=== PATIENT | female | born 1960 | race Caucasian/White ===

== ENCOUNTER → 2017-11-09 08:25 | Outpatient (CLI) | payer BC, SELFPAY ==
--- NOTE | 2017-11-09 08:27 | HPBI_ITS ---
MAMMOGRAPHY - BILATERAL SCREENING REASON FOR EXAM: Female, 57 years old. Routine annual screening examination. PERTINENT HISTORY: Injury to the right breast. TECHNIQUE: Digital bilateral breast susan (3D mammographic acquisition) in the CC and MLO projections. 2-D mediolateral oblique (MLO) and craniocaudad (CC) views of both breasts were obtained. CAD: Full Field Digital Mammography with Computer Added Detection was performed. COMPARISON: No comparison mammograms available at this time. If any prior films become available, an addendum to this report can be generated. FINDINGS: Breast Composition: There are scattered areas of fibroglandular density. There are no dominant masses or suspicious calcifications. Benign appearing bilateral axillary lymph nodes. No other significant abnormalities are identified. HPBI/SCREENING MAMM (CAD), BILAT IMPRESSION: Negative screening mammogram. Yearly followup mammogram recommended. (A) ASSESSMENT CATEGORY: BIRADS Category 2: Benign. A letter regarding these results will be sent to the patient by the facility within 30 days. Approximately 10% of breast cancers are not detected by mammography. A normal mammogram should not delay biopsy of a clinically suspicious abnormality. [id number] Electronically Signed: Edmond Vale MD at 10:58 EST Tel [phone], Service support ,
== END ==
PROVIDERS: Family Provider Internal Medicine; PCP Internal Medicine; Visit Provider Internal Medicine
DX: Z12.31 Encounter for screening mammogram for malignant neoplasm of breast (principal)
CPT/HCPCS: 77063; 77067

== ENCOUNTER 2018-03-25 19:02 | Emergency (ER) | payer BC, SELFPAY ==
[2018-03-25 19:03] VITALS: BP 167/95; PULSE 88; RESP 16; TEMP 36.7; O2SAT 94; BMI 17.5
[2018-03-25 19:29] LABS: Absolute Lymphocyte Count 1.26 X10^3/ul (0.83-4.51); Absolute Neutrophil Count 3.2 X10^3/uL (2.0-7.7); Basophil# 0.02 X10^3/uL; Basophil% 0.4 % (0-1); Hemoglobin 12.8 g/dl (12.0-15.0); Lymphocyte # 1.26 X10^3/ul (4.0); Lymphocyte % 25.5 % (19-41); Mean Corp Hgb Conc 32.8 g/gl (32-36); Mean Corpuscular Hgb 29.2 pg (27.0-32.0); Mean Platelet Vol. 10.1 fl (6.2-12.0); Monocyte# 0.41 X10^3/uL; Monocyte% 8.3 % (0-10); Neutrophil # 3.16 X10^3/uL (2.7-7.7); Neutrophil % 63.8 % (47-70); Platelet Count 180 K/mm3 (150-450); RBC Distribution Width CV 13.2 % (11.6-14.6); RBC Distribution Width SD 42.7 fl (35.1-43.9); Red Blood Count 4.38 M/mm3 (4.2-5.4)
[2018-03-25 19:30] LABS: POSITIVE COUNT NO; POSITIVE DIFFERENTIAL NO; POSITIVE MORPHOLOGY NO
[2018-03-25] MEDS: 0.9% Normal Saline 1,000 ML 999 ML IV (19:30)
[2018-03-25 19:34] LABS: Bacteria 0 SEEN /hpf (None Seen); Mucous, Urine 0 SEEN /hpf (<or=2+); Red Blood Cells-Urine 0 SEEN /hpf (0-5); Squamous Epithelial Cells - UA 0 SEEN /hpf (5-10); White Blood Cells 0 SEEN /hpf (0-5)
[2018-03-25 19:35] LABS: Color, Urine Yellow (Yellow); Glucose, Dipstick Normal (Normal); Ketone-Dipstick Negative (Negative); Leukocyte Esterase-Dipstick Negative /ul (Negative); Nitrite-Dipstick Negative (Negative); Occult Blood-Urine 25 /ul (Negative); Protein-Dipstick Negative (Negative); Urine Bilirubin Dipstick Negative (Negative); Urine Clarity Clear (Clear); Urine Urobilinogen Normal (Normal); Urine pH 6.5 (5.0 - 8.0)
--- NOTE | 2018-03-25 19:36 | ED.VISSUMM ---
- ER Visit Summary Date of Service: 03/25/18 Chief Complaint: Fatigue History of Present Illness: The patient is a 57 F states that she feels fatigued and weak. She is felt this way for 4 days. She is currently on Macrobid for urinary tract infection. She feels like she has a headache and that her face is on fire. No lateralizing weakness. No slurred speech or facial droop. She did not check her temperature. She has been eating and drinking well. She does have a history of fibromyalgia Physical Examination: Vital signs reviewed. HEENT exam unremarkable. Heart is regular rate and rhythm without murmurs. Lungs are clear to auscultation. Abdomen is soft and nontender. Extremities reveal no edema. Skin exam normal. Neurologic exam normal. Test Results: Labs are normal Emergency Department Course and Treatment: Patient was given IV fluids. Her labs including TSH are normal. The Macrobid might be causing her to feel fatigued. She will discontinue this. She will increase her hydration and follow-up with her PCP Treatment Plan: [] Disposition: Discharge Impression: Fatigue This note was generated with [employer] dictation software. It may contain incorrect words, spelling, and punctuation that were not noted in review of the chart prior to signing ED Disposition - Plan for ED Patient: Chief Complaint: Fatigue Referrals: Suzy Willis DO [Primary Care Provider] -
[2018-03-25 19:43] LABS: Anion Gap 9 (5-15); BUN 11 mg/dL (7-18); BUN/Creat Ratio 11.5 RATIO (10-20); Calcium,Total 9.4 mg/dL (8.5-10.1); Chloride 102 mmol/L (98-107); Creatinine, Serum 0.96 mg/dL (0.55-1.02); EST Glomerular Filtration Rate 64 mL/min (>60); Est Glom Filt Rate - Afr Amer 77 mL/min (>60); Estimated Creatinine Clearance 42.02 ml/min; Glucose 148 mg/dL (74-106); Potassium 3.8 mmol/L (3.5-5.1); Sodium Level 136 mmol/L (136-145)
[2018-03-25 20:21] LABS: Thyroid Stim Hormone (TSH) 1.23 uIU/mL (0.358-3.74)
--- NOTE | 2018-03-25 20:34 | ED.DEP ---
ED Disposition - Plan for ED Patient: Disposition: Home or Assisted Living Chief Complaint: Fatigue Instructions: ED Weakness [facility]O Referrals: Suzy Willis DO [Primary Care Provider] -
[2018-03-25 20:40] VITALS: BP 146/74; PULSE 77; RESP 18; O2SAT 95
== END 2018-03-25 20:42 | disposition home or self-care (01) ==
PROVIDERS: Emergency Provider Emergency Medicine; Family Provider Internal Medicine; PCP Internal Medicine
DX: R53.83 Other fatigue (principal); N39.0 Urinary tract infection, site not specified; Z79.2 Long term (current) use of antibiotics
CPT/HCPCS: 80048; 81001; 84443; 85025; 96360; 99283; J7030; A4216

== ENCOUNTER → 2018-09-28 13:15 | Outpatient (CLI) | payer BC, SELFPAY ==
--- NOTE | 2018-09-28 13:17 | US_ITS ---
STUDY: ULTRASOUND OF THE FEMALE PELVIS - COMPLETE REASON FOR EXAM: Female, 57 years old. Pelvic pain. LMP: Postmenopausal. TECHNIQUE: Transabdominal and transvaginal. TECHNICAL QUALITY: Adequate. COMPARISON: 06/24/2014. FINDINGS: The uterus is anteverted and is in a midline position. The uterus measures 7.0 x 3.9 x 2.7 cm. Nabothian cyst in the uterine cervix. The endometrium measures 2.4 mm in thickness, and is hyperechoic. There is no demonstrated endometrial mass. There is no demonstrated myometrial mass. I.U.D. - The patient does not have an I.U.D. The right ovary is not visualized. The left ovary is visualized. The left ovary measures 1.9 x 1.8 x 1.4 cm. There is no left ovarian cyst or ovarian mass. There is no visualized left adnexal mass or complex lesion. There is normal arterial and normal venous vascularity. There is no fluid in the cul-de-sac. The pre void volume of the bladder was 355 ml. US/Pelvic (Non ) IMPRESSION: 1. Nabothian cysts in the uterine cervix. 2. Normal ultrasound the uterus. 3. Nonvisualization of the right ovary. 4. Normal ultrasound of the left ovary. Electronically Signed: Asaf Brar MD at 14:15 EST , Service support ,
--- NOTE | 2018-09-28 13:43 | US_ITS ---
STUDY: ULTRASOUND OF THE FEMALE PELVIS - COMPLETE REASON FOR EXAM: Female, 57 years old. Pelvic pain. LMP: Postmenopausal. TECHNIQUE: Transabdominal and transvaginal. TECHNICAL QUALITY: Adequate. COMPARISON: 06/24/2014. FINDINGS: The uterus is anteverted and is in a midline position. The uterus measures 7.0 x 3.9 x 2.7 cm. Nabothian cyst in the uterine cervix. The endometrium measures 2.4 mm in thickness, and is hyperechoic. There is no demonstrated endometrial mass. There is no demonstrated myometrial mass. I.U.D. - The patient does not have an I.U.D. The right ovary is not visualized. The left ovary is visualized. The left ovary measures 1.9 x 1.8 x 1.4 cm. There is no left ovarian cyst or ovarian mass. There is no visualized left adnexal mass or complex lesion. There is normal arterial and normal venous vascularity. There is no fluid in the cul-de-sac. The pre void volume of the bladder was 355 ml. US/Transvaginal Non- IMPRESSION: 1. Nabothian cysts in the uterine cervix. 2. Normal ultrasound the uterus. 3. Nonvisualization of the right ovary. 4. Normal ultrasound of the left ovary. Electronically Signed: Asaf Brar MD at 14:15 EST , Service support ,
--- OUTSIDE RECORDS SUMMARY | 2018-12-03 06:12 | XMS RPT_ITS | Continuity of Care Document ---
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 Pulse 70 /min Comments: Pattern: Regular Respiration Rate 18 /min Comments: Pattern: Unlabored O2 SAT 97 % Comments: Room air BP Systolic 138 mm[Hg] Comments: Patient Position: Sitting; Cuff Location: Left Arm; Cuff Size: Large BP Diastolic 82 mm[Hg] Comments: Patient Position: Sitting; Cuff Location: Left Arm; Cuff Size: Large Weight 191.375 lb Height 61 in Body Mass Index Calculated 36.16 kg/m2 Body Surface Area Calculated 1.85 m2 :44 Pulse 67 /min Comments: Pattern: Regular Respiration Rate 18 /min Comments: Pattern: Unlabored O2 SAT 95 % Comments: Room air BP Systolic 124 mm[Hg] Comments: Patient Position: Sitting; Cuff Location: Left Arm; Cuff Size: Large BP Diastolic 74 mm[Hg] Comments: Patient Position: Sitting; Cuff Location: Left Arm; Cuff Size: Large Weight 189.125 lb Height 61 in Body Mass Index Calculated 35.73 kg/m2 Body Surface Area Calculated 1.84 m2 :15 Pulse 55 /min Comments: Pattern: Regular Respiration Rate 18 /min Comments: Pattern: Unlabored O2 SAT 98 % Comments: Room air BP Systolic 124 mm[Hg] Comments: Patient Position: Sitting; Cuff Location: Left Arm; Cuff Size: Large BP Diastolic 82 mm[Hg] Comments: Patient Position: Sitting; Cuff Location: Left Arm; Cuff Size: Large Weight 185.5 lb Height 61 in Body Mass Index Calculated 35.05 kg/m2 Body Surface Area Calculated 1.83 m2 :21 Temperature 97.3 f Comments: Method: Temporal Pulse 68 /min Comments: Pattern: Regular Respiration Rate 20 /min Comments: Pattern: Unlabored O2 SAT 98 % Comments: Room air BP Systolic 144 mm[Hg] Comments: Patient Position: Sitting; Cuff Location: Left Arm; Cuff Size: Large BP Diastolic 90 mm[Hg] Comments: Patient Position: Sitting; Cuff Location: Left Arm; Cuff Size: Large Weight 189 lb Height 61 in Body Mass Index Calculated 35.71 kg/m2 Body Surface Area Calculated 1.84 m2 :20 Pulse 68 /min Comments: Pattern: Regular Respiration Rate 18 /min Comments: Pattern: Unlabored O2 SAT 97 % Comments: Room air BP Systolic 120 mm[Hg] Comments: Patient Position: Sitting; Cuff Location: Left Arm; Cuff Size: Standard BP Diastolic 62 mm[Hg] Comments: Patient Position: Sitting; Cuff Location: Left Arm; Cuff Size: Standard Weight 189 lb Height 61 in Body Mass Index Calculated 35.71 kg/m2 Body Surface Area Calculated 1.84 m2 :18 Temperature 98.2 f Comments: Method: Oral Pulse 78 /min Comments: Pattern: Regular Respiration Rate 18 /min Comments: Pattern: Unlabored O2 SAT 95 % Comments: Room air BP Systolic 138 mm[Hg] Comments: Patient Position: Sitting; Cuff Location: Left Arm; Cuff Size: Standard BP Diastolic 80 mm[Hg] Comments: Patient Position: Sitting; Cuff Location: Left Arm; Cuff Size: Standard Weight 189 lb Height 61 in Body Mass Index Calculated 35.71 kg/m2 Body Surface Area Calculated 1.84 m2 :47 Temperature 97.9 f Comments: Method: Temporal Pulse 71 /min Comments: Pattern: Regular Respiration Rate 16 /min Comments: Pattern: Unlabored O2 SAT 96 % Comments: Room air BP Systolic 130 mm[Hg] Comments: Patient Position: Sitting; Cuff Location: Left Arm; Cuff Size: Standard BP Diastolic 80 mm[Hg] Comments: Patient Position: Sitting; Cuff Location: Left Arm; Cuff Size: Standard Weight 189 lb Height 61 in Body Mass Index Calculated 35.71 kg/m2 Body Surface Area Calculated 1.84 m2 :15 Temperature 97.6 f Comments: Method: Temporal Pulse 74 /min Comments: Pattern: Regular Respiration Rate 18 /min Comments: Pattern: Unlabored O2 SAT 98 % Comments: Room air BP Systolic 136 mm[Hg] Comments: Patient Position: Sitting; Cuff Location: Left Arm; Cuff Size: Large BP Diastolic 86 mm[Hg] Comments: Patient Position: Sitting; Cuff Location: Left Arm; Cuff Size: Large Weight 195 lb Height 61 in Body Mass Index Calculated 36.84 kg/m2 Body Surface Area Calculated 1.87 m2 :04 Temperature 97.6 f Comments: Method: Temporal Pulse 74 /min Comments: Pattern: Regular Respiration Rate 18 /min Comments: Pattern: Unlabored O2 SAT 98 % Comments: Room air BP Systolic 144 mm[Hg] Comments: Patient Position: Sitting; Cuff Location: Left Arm; Cuff Size: Large BP Diastolic 94 mm[Hg] Comments: Patient Position: Sitting; Cuff Location: Left Arm; Cuff Size: Large Weight 194 lb Height 61 in Body Mass Index Calculated 36.66 kg/m2 Body Surface Area Calculated 1.86 m2 :00 Temperature 98.6 f Comments: Method: Tympanic Pulse 77 /min Comments: Pattern: Regular Respiration Rate 16 /min Comments: Pattern: Unlabored O2 SAT 97 % Comments: Room air BP Systolic 140 mm[Hg] Comments: Patient Position: Sitting; Cuff Location: Left Arm; Cuff Size: Standard BP Diastolic 90 mm[Hg] Comments: Patient Position: Sitting; Cuff Location: Left Arm; Cuff Size: Standard Weight 193.125 lb Height 61 in Body Mass Index Calculated 36.49 kg/m2 Body Surface Area Calculated 1.86 m2 :34 Temperature 98.6 f Pulse 81 /min Comments: Pattern: Regular Respiration Rate 18 /min Comments: Pattern: Unlabored O2 SAT 96 % Comments: Room air BP Systolic 128 mm[Hg] Comments: Patient Position: Sitting; Cuff Location: Left Arm; Cuff Size: Standard BP Diastolic 82 mm[Hg] Comments: Patient Position: Sitting; Cuff Location: Left Arm; Cuff Size: Standard Weight 193.25 lb Height 61 in Body Mass Index Calculated 36.51 kg/m2 Body Surface Area Calculated 1.86 m2 :05 Temperature 97.6 f Comments: Method: Temporal Pulse 68 /min Comments: Pattern: Regular Respiration Rate 20 /min Comments: Pattern: Unlabored O2 SAT 98 % Comments: Room air BP Systolic 146 mm[Hg] Comments: Patient Position: Sitting; Cuff Location: Left Arm; Cuff Size: Large BP Diastolic 84 mm[Hg] Comments: Patient Position: Sitting; Cuff Location: Left Arm; Cuff Size: Large Weight 197 lb Height 61 in Body Mass Index Calculated 37.22 kg/m2 Body Surface Area Calculated 1.88 m2 :41 Temperature 98 f Comments: Method: Temporal Pulse 86 /min Comments: Pattern: Regular Respiration Rate 16 /min Comments: Pattern: Unlabored O2 SAT 97 % Comments: Room air BP Systolic 132 mm[Hg] Comments: Patient Position: Sitting; Cuff Location: Left Arm; Cuff Size: Standard BP Diastolic 80 mm[Hg] Comments: Patient Position: Sitting; Cuff Location: Left Arm; Cuff Size: Standard Weight 222 lb Height 61 in Body Mass Index Calculated 41.95 kg/m2 Body Surface Area Calculated 1.97 m2 :14 Temperature 97.6 f Comments: Method: Oral Pulse 74 /min Comments: Pattern: Regular Respiration Rate 20 /min Comments: Pattern: Unlabored BP Systolic 120 mm[Hg] Comments: Patient Position: Sitting; Cuff Location: Left Arm; Cuff Size: Large BP Diastolic 80 mm[Hg] Comments: Patient Position: Sitting; Cuff Location: Left Arm; Cuff Size: Large Weight 220 lb Height 61 in Body Mass Index Calculated 41.57 kg/m2 Body Surface Area Calculated 1.97 m2 Results Date Description Value Details :32 LIPID PANEL (31515) Comments: PATIENT WAS FASTINGPERFORMED BY: [facility] Ieweew1695 [facility] [id number] LDL/HDL Ratio 2.1 {ratio} (Normal) Range: 0.0-3.2 Comments: LDL/HDL Ratio Men Women 1/2 Avg.Risk 1.0 1.5 Av g.Risk 3.6 3.2 2X Avg.Risk 6.2 5.0 3X Avg.Risk 8.0 6.1 LDL Cholesterol Calc 135 mg/dL (Abnormal) Range: 0-99 VLDL Cholesterol Tony 17 mg/dL (Normal) Range: 5-40 HDL Cholesterol 64 mg/dL (Normal) Triglycerides 87 mg/dL (Normal) Range: 0-149 Cholesterol, Total 216 mg/dL (Abnormal) Range: 100-199 47-Ldn-169299:30 Urinalysis, Complete Comments: How was Urine Obtained? [facility] [id number] [place], [address] MUCUS, URINE 0 SEEN {/hpf} (Normal) BACTERIA 0 SEEN {/hpf} (Normal) SQUAM EPI 0 SEEN {/hpf} (Normal) Range: 5-10 RBC-UA 0 SEEN {/hpf} (Normal) Range: 0-5 WBC 0 SEEN {/hpf} (Normal) Range: 0-5 LEUK ESTERASE Negative /ul (Normal) OCCULT BLOOD-UR 25 /ul (Abnormal) NITRITE UR Negative (Normal) UROBILI Normal mg/dL (Normal) PROT DIPSTX Negative mg/dL (Normal) pH UR 6.5 (Normal) Range: 5.0 - 8.0 SP.GR. DIPSTX 1.010 (Normal) Range: 1.002-1.030 KETONE UR Negative mg/dL (Normal) BILIRUBIN URINE Negative mg/dL (Normal) GLUCOSE, UR Normal mg/dL (Normal) CLARITY Clear (Normal) COLOR Yellow (Normal) 74-Cah-841030:21 Basic Metabolic Profile (BMP) Comments: [facility] [address] [place], [place], [id number] GAP 9 (Normal) Range: 5-15 CO2 25.0 mmol/L (Normal) Range: 21.0-32.0 CL 102 mmol/L (Normal) Range: 98-107 K 3.8 mmol/L (Normal) Range: 3.5-5.1 NA 136 mmol/L (Normal) Range: 136-145 CA 9.4 mg/dL (Normal) Range: 8.5-10.1 BUN/CRE 11.5 {RATIO} (Normal) Range: 10-20 Estimated CRCL 42.02 ml/min (Normal) EST GFR - AA 77 mL/min (Normal) Comments: GFR Calc EST GFR 64 mL/min (Normal) Comments: Non- GFR Calc CREAT,SERUM 0.96 mg/dL (Normal) Range: 0.55-1.02 Comments: The validity of the calculated GFR AND GFRAA in patients over70 years has not been determined. Clinical correlation isessential. BUN 11 mg/dL (Normal) Range: 7-18 GLU 148 mg/dL (Abnormal) Range: 74-106 Comments: Fasting Glucose result greater than or equal to 126 mg/dLsuggests DIABETES MELLITUS per A.D.A. criteria.Please note revised GLUCOSE reference range dripbcvxf52/02/2018. 04-Eoc-216031:21 CBC W/Diff, Automated Comments: [facility] [id number] [place], [place], [id number] Absolute Lymph 1.26 {X10_3/ul} (Normal) Range: 0.83-4.51 Absolute Neut 3.2 {X10_3/uL} (Normal) Range: 2.0-7.7 IM GRAN % 0.000 % (Normal) Range: 0.0-0.9 Comments: IG% - Immature Granulocytes (promyelocytes, myelocytes andmetamyelocytes) > 1% indicates that a LEFT SHIFT is Present. BASO% 0.4 % (Normal) Range: 0-1 EO% 2.0 % (Normal) Range: 0-5 MONO% 8.3 % (Normal) Range: 0-10 LY% 25.5 % (Normal) Range: 19-41 NEUT% 63.8 % (Normal) Range: 47-70 MPV 10.1 fL (Normal) Range: 6.2-12.0 PLT 180 K/mm3 (Normal) Range: 150-450 RDW SD 42.7 fL (Normal) Range: 35.1-43.9 RDW CV 13.2 % (Normal) Range: 11.6-14.6 MCHC 32.8 {g/gl} (Normal) Range: 32-36 MCH 29.2 pg (Normal) Range: 27.0-32.0 MCV 89.0 fL (Normal) Range: 81-99 HCT 39.0 % (Normal) Range: 37-47 HGB 12.8 g/dL (Normal) Range: 12.0-15.0 RBC 4.38 {M/mm3} (Normal) Range: 4.2-5.4 WBC 5.0 K/mm3 (Normal) Range: 4.4-11.0 28-Bnc-628814:21 Thyroid Stim Hormone (TSH) Comments: [facility] [address] [place], [place], [id number] TSH 1.23 {uIU/mL} (Normal) Range: 0.358-3.74 54-Wxi-221349:51 URINE SUSAN CULTURE-CHRISTIAN COL Comments: PATIENT NOT FASTINGPERFORMED BY: [facility] Wldzrb8959 [facility] [id number] Information: SRC:UC COUNT (98774) Antimicrobial MIHEAD (Normal) Comments: S = Susceptible; I = Intermediate; R = Resistant P = Positive; N = Negative MICS are expressed in micrograms per mL Antibiotic RSLT#1 RSLT#2 RS Susceptibility LT#3 RSLT#4Amoxicillin/Clavulanic Acid SAmpicillin SCefepime SCeftriaxone SCefuroxime SCiprofloxacin SErtapenem SGentamicin SImipenem SLevofloxacin SMeropenem SNitrofurantoin SPipera cillin/Tazobactam STetracycline STobramycin STrimethoprim/Sulfa S Result 1 Escherichia coli Comments: Greater than 100,000 colony forming units per mL (Abnormal) Urine Final report Culture,Comprehensive (Abnormal) 36-Cxp-718792:40 Urinalysis, Office (70169) UA - LEUKOCYTE ESTERASE Moderate (Normal) UA - NITRITE Negative (Normal) URINE UROBILINGN CHRISTIAN TIMED Normal mg/dL (Normal) UA - PROTEIN Trace mg/dL (Normal) UA - PH 8.5 (Normal) UA - BLOOD non-hemolyzed trace (Normal) UA - SPECIFIC GRAVITY 1.015 (Normal) UA - KETONES Negative mg/dL (Normal) UA - BILIRUBIN Negative (Normal) UA - GLUCOSE Negative (Normal) 07-Qna-982852:36 CALCIFIDIOL (09712) VIT D 25 Comments: PATIENT WAS FASTINGPERFORMED BY: Klir TechnologiesCritical access hospital [id number] Vitamin D, 25-Hydroxy 73.8 ng/mL (Normal) Range: 30.0-100.0 Comments: Vitamin D deficiency has been defined by the [place] of[facility] Centercine and an Endocrine Society practice guideline as alevel of serum 25-OH vitamin D less than 20 ng/mL (1,2).The Endocrine Society went on to further define vitamin Dinsufficiency as a level between 21 and 29 ng/mL (2).1. IOM ([place] of Medicine). 2010. Dietary reference intakes for calcium and D. [place]: The National Academies Press.2. Mouna MF, Isa NC, Lokesh BOJORQUEZ, et al. Evaluation, treatment, and prevention of vitamin D deficiency: an Endocrine Society clinical practice guideline. JCEM. 2010; 96(7):1911-30. 22-Lzu-879703:36 Folate (34999) Comments: PATIENT WAS FASTINGPERFORMED BY: [employer]70 [facility] [id number] Folate (Folic Acid), Serum 8.4 ng/mL (Normal) Comments: A serum folate concentration of less than 3.1 ng/mL isconsidered to represent clinical deficiency. 52-Zlw-021578:36 VITAMIN B-12 (CYANOCOBALAMIN) Comments: PATIENT WAS FASTINGPERFORMED BY: [employer] LabGridstore Hmkrrp6619 García [facility] [place] [id number] (26847) Vitamin B12 386 pg/mL (Normal) Range: 232-1245 28-Mdc-094699:36 TSH (19235) Comments: PATIENT WAS FASTINGPERFORMED BY: [facility] Icanwl2623 Garc[facility] [place] [id number] TSH 2.290 {uIU/mL} (Normal) Range: 0.450-4.500 50-Zhh-991337:36 SED RATE ERYTHROCYTE (70535) Comments: PATIENT WAS FASTINGPERFORMED BY: [employer] [facility] Jqgvif1346 García [facility] [place] [id number] Sedimentation Rate-Westergren 6 mm/h (Normal) Range: 0-40 67-Hbs-897912:36 RHEUMATOID FACTOR-QUANT (29792) Comments: PATIENT WAS FASTINGPERFORMED BY: [employer] [facility] Fubhya4797 García [facility] HospitalD[facility] [place] [id number] RA Latex Turbid. <10.0 {IU/mL} (Normal) Range: 0.0-13.9 23-Yed-975776:36 METABOLIC PANEL, COMPREHENSIVE Comments: PATIENT WAS FASTINGPERFORMED BY: [employer] [facility] Dprvex2279 García [facility] [place] [id number] (67194) ALT (SGPT) 16 [iU]/L (Normal) Range: 0-32 AST (SGOT) 20 [iU]/L (Normal) Range: 0-40 Alkaline Phosphatase, S 45 [iU]/L (Normal) Range: 39-117 Bilirubin, Total 0.4 mg/dL (Normal) Range: 0.0-1.2 A/G Ratio 1.9 (Normal) Range: 1.2-2.2 Globulin, Total 2.3 g/dL (Normal) Range: 1.5-4.5 Albumin, Serum 4.3 g/dL (Normal) Range: 3.5-5.5 Protein, Total, Serum 6.6 g/dL (Normal) Range: 6.0-8.5 Calcium, Serum 9.5 mg/dL (Normal) Range: 8.7-10.2 Carbon Dioxide, Total 23 mmol/L (Normal) Range: 18-29 Chloride, Serum 101 mmol/L (Normal) Range: 96-106 Potassium, Serum 4.6 mmol/L (Normal) Range: 3.5-5.2 Sodium, Serum 143 mmol/L (Normal) Range: 134-144 BUN/Creatinine Ratio 20 (Normal) Range: 9-23 eGFR If Africn Am 99 mL/min/1.73 (Normal) eGFR If NonAfricn Am 86 mL/min/1.73 (Normal) Creatinine, Serum 0.76 mg/dL (Normal) Range: 0.57-1.00 BUN 15 mg/dL (Normal) Range: 6-24 Glucose, Serum 112 mg/dL (Abnormal) Range: 65-99 69-Tqr-352316:36 C-REACTIVE PROTEIN (01106) Comments: PATIENT WAS FASTINGPERFORMED BY: [employer]63Zi Uniform SupplyWhitesburg ARH Hospital [id number] C-Reactive Protein, Quant 4.2 mg/L (Normal) Range: 0.0-4.9 71-Vtv-038404:36 CBC (AUTO) (20090) Comments: PATIENT WAS FASTINGPERFORMED BY: Kl[facility]capital [facility] [place] [id number] Platelets 221 {x10E3/uL} (Normal) Range: 150-379 RDW 12.9 % (Normal) Range: 12.3-15.4 MCHC 33.1 g/dL (Normal) Range: 31.5-35.7 MCH 30.2 pg (Normal) Range: 26.6-33.0 MCV 91 fL (Normal) Range: 79-97 Hematocrit 40.2 % (Normal) Range: 34.0-46.6 Hemoglobin 13.3 g/dL (Normal) Range: 11.1-15.9 RBC 4.40 {x10E6/uL} (Normal) Range: 3.77-5.28 WBC 7.4 {x10E3/uL} (Normal) Range: 3.4-10.8 81-Keo-671027:36 DEMOND (ANTINUCLEAR ANTIBODY) Comments: PATIENT WAS FASTINGPERFORMED BY: Klir TechnologiesCritical access hospital [id number] (67648) DEMOND Direct Negative (Normal) 90-Djm-030492:48 HEPATIC FUNCTION PANEL Comments: PATIENT WAS FASTINGPERFORMED BY: [employer] 1EQ [facility] [id number] (32189) ALT (SGPT) 15 [iU]/L (Normal) Range: 0-32 AST (SGOT) 21 [iU]/L (Normal) Range: 0-40 Alkaline Phosphatase, S 62 [iU]/L (Normal) Range: 39-117 Bilirubin, Direct 0.10 mg/dL (Normal) Range: 0.00-0.40 Bilirubin, Total 0.3 mg/dL (Normal) Range: 0.0-1.2 Albumin, Serum 4.3 g/dL (Normal) Range: 3.5-5.5 Protein, Total, Serum 6.4 g/dL (Normal) Range: 6.0-8.5 :48 LIPID PANEL (35362) Comments: PATIENT WAS FASTINGPERFORMED BY: aTyr PharmaCentraState Healthcare SystemKdbsct4728 [facility] [id number] LDL/HDL Ratio 2.7 {ratio_units} (Normal) Range: 0.0-3.2 Comments: LDL/HDL Ratio Men Women 1/2 Avg.Risk 1.0 1.5 Av g.Risk 3.6 3.2 2X Avg.Risk 6.2 5.0 3X Avg.Risk 8.0 6.1 LDL Cholesterol Calc 160 mg/dL (Abnormal) Range: 0-99 VLDL Cholesterol Tony 31 mg/dL (Normal) Range: 5-40 HDL Cholesterol 60 mg/dL (Normal) Triglycerides 154 mg/dL (Abnormal) Range: 0-149 Cholesterol, Total 251 mg/dL (Abnormal) Range: 100-199 18-Lob-281582:48 TSH (08109) Comments: PATIENT WAS FASTINGPERFORMED BY: [employer] Rekfbj4734 [facility] [id number] TSH 2.610 {uIU/mL} (Normal) Range: 0.450-4.500 84-Iaw-512258:48 T4, FREE (THYROXINE) (91336) Comments: PATIENT WAS FASTINGPERFORMED BY: [employer] Yigemi8972 [facility] [id number] T4,Free(Direct) 1.20 ng/dL (Normal) Range: 0.82-1.77 :48 T3, FREE (TRIDOTHYRONINE) (75103) Comments: PATIENT WAS FASTINGPERFORMED BY: LabCoCentraState Healthcare SystemMqzjcz3589 [facility] [id number] Triiodothyronine,Free,Serum 2.9 pg/mL (Normal) Range: 2.0-4.4 :05 HgA1C , Office (67962) HgA1C , Office 5.7 % (Normal) Range: 4.6 - 7.1 :05 Blood Glucose , Office (71335) Blood Glucose , Office 108 (Normal) :53 CBC With Differential/Platelet Comments: PATIENT WAS FASTINGPERFORMED BY: [facility]Henry [facility]6370 [facility] [id number] BY: [address] [id number] Immature Grans (Abs) 0.0 {x10E3/uL} (Normal) Range: 0.0-0.1 Immature Granulocytes 0 % (Normal) Baso (Absolute) 0.0 {x10E3/uL} (Normal) Range: 0.0-0.2 Eos (Absolute) 0.3 {x10E3/uL} (Normal) Range: 0.0-0.4 Monocytes(Absolute) 0.5 {x10E3/uL} (Normal) Range: 0.1-0.9 Lymphs (Absolute) 1.9 {x10E3/uL} (Normal) Range: 0.7-3.1 Neutrophils (Absolute) 3.1 {x10E3/uL} (Normal) Range: 1.4-7.0 Basos 1 % (Normal) Eos 4 % (Normal) Monocytes 9 % (Normal) Lymphs 33 % (Normal) Neutrophils 53 % (Normal) Platelets 221 {x10E3/uL} (Normal) Range: 150-379 RDW 13.5 % (Normal) Range: 12.3-15.4 MCHC 33.8 g/dL (Normal) Range: 31.5-35.7 MCH 30.3 pg (Normal) Range: 26.6-33.0 MCV 90 fL (Normal) Range: 79-97 Hematocrit 41.1 % (Normal) Range: 34.0-46.6 Hemoglobin 13.9 g/dL (Normal) Range: 11.1-15.9 RBC 4.59 {x10E6/uL} (Normal) Range: 3.77-5.28 WBC 5.8 {x10E3/uL} (Normal) Range: 3.4-10.8 37-Qek-89662:53 Comp. Metabolic Panel Comments: PATIENT WAS FASTINGPERFORMED BY: CB [facility] Rdgbuv4294 [facility] [id number] BY: BN [facility] Fvmrtkftgx7426 [facility] [id number] (14) ALT (SGPT) 17 [iU]/L (Normal) Range: 0-32 AST (SGOT) 21 [iU]/L (Normal) Range: 0-40 Alkaline Phosphatase, S 62 [iU]/L (Normal) Range: 39-117 Bilirubin, Total 0.3 mg/dL (Normal) Range: 0.0-1.2 A/G Ratio 1.9 (Normal) Range: 1.2-2.2 Globulin, Total 2.2 g/dL (Normal) Range: 1.5-4.5 Albumin, Serum 4.2 g/dL (Normal) Range: 3.5-5.5 Protein, Total, Serum 6.4 g/dL (Normal) Range: 6.0-8.5 Calcium, Serum 9.6 mg/dL (Normal) Range: 8.7-10.2 Carbon Dioxide, Total 23 mmol/L (Normal) Range: 18-29 Chloride, Serum 100 mmol/L (Normal) Range: 96-106 Potassium, Serum 4.2 mmol/L (Normal) Range: 3.5-5.2 Sodium, Serum 141 mmol/L (Normal) Range: 134-144 BUN/Creatinine Ratio 13 (Normal) Range: 9-23 eGFR If Africn Am 102 mL/min/1.73 (Normal) eGFR If NonAfricn Am 88 mL/min/1.73 (Normal) Creatinine, Serum 0.75 mg/dL (Normal) Range: 0.57-1.00 BUN 10 mg/dL (Normal) Range: 6-24 Glucose, Serum 97 mg/dL (Normal) Range: 65-99 :53 Lipid Panel With LDL/HDL Comments: PATIENT WAS FASTINGPERFORMED BY: aTyr PharmaLarry V[place] [id number] [facility] [id number] BY: [address] [id number]; will review on 04/15 Ratio LDL/HDL Ratio 3.1 {ratio_units} (Normal) Range: 0.0-3.2 Comments: LDL/HDL Ratio Men Women 1/2 Avg.Risk 1.0 1.5 Av g.Risk 3.6 3.2 2X Avg.Risk 6.2 5.0 3X Avg.Risk 8.0 6.1 LDL Cholesterol Calc 158 mg/dL (Abnormal) Range: 0-99 VLDL Cholesterol Tony 45 mg/dL (Abnormal) Range: 5-40 HDL Cholesterol 51 mg/dL (Normal) Triglycerides 225 mg/dL (Abnormal) Range: 0-149 Cholesterol, Total 254 mg/dL (Abnormal) Range: 100-199 :53 Microalb/Creat Ratio, Randm Comments: PATIENT WAS FASTINGPERFORMED BY: [employer] [id number] BY: [address] [id number] Ur Microalb/Creat Ratio <5.1 {mg/g_creat} (Normal) Range: 0.0-30.0 Microalbumin, Urine <3.0 ug/mL (Normal) Creatinine, Urine 58.9 mg/dL (Normal) :53 Microscopic Examination Comments: PATIENT WAS FASTINGPERFORMED BY: [facility] HospitalGridstore[address] [id number] BY: [address] [id number] Bacteria None seen (Normal) Mucus Threads Present (Normal) Epithelial Cells (non 0-10 {/hpf} Range: 0 - 10 renal) (Normal) RBC None seen {/hpf} Range: 0 - 2 (Normal) WBC 0-5 {/hpf} (Normal) Range: 0 - 5 Reverse T3, Serum 27.8 ng/dL Comments: PATIENT WAS FASTINGPERFORMED BY: [place] [id number] [facility] [id number] BY: [address] [id number] :53 (Abnormal) Range: 9.2-24.1 Thyroid Peroxidase 79 {IU/mL} Comments: PATIENT WAS FASTINGPERFORMED BY: [email or web address] [facility] Hospital6370 [facility] [id number] BY: [address] [id number] :53 (TPO) Ab (Abnormal) Range: 0-34 :53 Thyroxine (T4) Free, Comments: PATIENT WAS FASTINGPERFORMED BY: [email or web address] [facility] Hospital6370 [facility] [id number] BY: [address] [id number] Direct, S T4,Free(Direct) 1.18 ng/dL Range: 0.82-1.77 (Normal) 08-Apr-2017 Triiodothyronine,Free,Seru 2.7 pg/mL (Normal) Comments: PATIENT WAS FASTINGPERFORMED BY: [email or web address] [facility] Hospital6370 [facility] [id number] BY: [address] [id number] 9:53 m Range: 2.0-4.4 08-Apr-2017 TSH 2.850 {uIU/mL} Comments: PATIENT WAS FASTINGPERFORMED BY: [email or web address] [facility] Hospital6370 [facility] [id number] BY: [address] [id number] 9:53 (Normal) Range: 0.450-4.500 60-Kqw-15694:53 Urinalysis, Complete Comments: PATIENT WAS FASTINGPERFORMED BY: [facility]6370 [facility] [id number] BY: [address] [id number] Microscopic Examination See below: (Normal) Comments: Microscopic was indicated and was performed. Nitrite, Urine Negative (Normal) Urobilinogen,Semi-Qn 0.2 mg/dL (Normal) Range: 0.2-1.0 Bilirubin Negative (Normal) Occult Blood Negative (Normal) Ketones Negative (Normal) Glucose Negative (Normal) Protein Negative (Normal) WBC Esterase Trace (Abnormal) Appearance Clear (Normal) Urine-Color Yellow (Normal) pH 7.0 (Normal) Range: 5.0-7.5 Specific [place] 1.008 (Normal) Range: 1.005-1.030 Vitamin D, 25-Hydroxy 60.2 ng/mL (Normal) Comments: PATIENT WAS FASTINGPERFORMED BY: [place] [id number] [facility] [id number] BY: [address] [id number] :53 Range: 30.0-100.0 Comments: Vitamin D deficiency has been defined by the [place] [employer] and an Endocrine Society practice guideline as alevel of serum 25-OH vitamin D less than 20 ng/mL (1,2).The Endocrine Society went on to further define vitamin Dinsufficiency as a level between 21 and 29 ng/mL (2).1. IOM ([place] [employer]). 2010. Dietary reference intakes for calcium and D. [place]: The National Academies Press.2. Mouna MF, Isa FRYE, Lokesh BOJORQUEZ, et al. Evaluation, treatment, and prevention of vitamin D deficiency: an Endocrine Society clinical practice guideline. JCEM. 2010; 96(7):1911-30. :54 Basic Metabolic Profile (BMP) Comments: [facility] [id number] [place], [address] GAP 7 (Normal) Range: 5-15 CO2 28.0 mmol/L (Normal) Range: 21.0-32.0 CL 104 mmol/L (Normal) Range: 98-107 K 4.0 mmol/L (Normal) Range: 3.5-5.1 NA 139 mmol/L (Normal) Range: 136-145 CA 9.1 mg/dL (Normal) Range: 8.5-10.1 BUN/CRE 19.8 {RATIO} (Normal) Range: 10-20 Estimated CRCL 60.89 ml/min (Normal) EST GFR - AA 101 mL/min (Normal) Comments: GFR Calc EST GFR 83 mL/min (Normal) Comments: Non- GFR Calc CREAT,SERUM 0.76 mg/dL (Normal) Range: 0.55-1.02 Comments: The validity of the calculated GFR AND GFRAA in patients over70 years has not been determined. Clinical correlation isessential. BUN 15 mg/dL (Normal) Range: 7-18 GLU 121 mg/dL (Abnormal) Range: 70-110 Comments: Fasting Glucose result from 110 to <126 mg/dLsuggests IMPAIRED HOMEOSTASIS per A.D.A. criteria. [id number]:54 CBC W/Diff, Automated Comments: [facility] [id number] [place], [place], [id number] Absolute Lymph 1.36 {X10_3/ul} (Normal) Range: 0.83-4.51 Absolute Neut 4.8 {X10_3/uL} (Normal) Range: 2.0-7.7 IM GRAN % 0.400 % (Normal) Range: 0.0-0.9 Comments: IG% - Immature Granulocytes (promyelocytes, myelocytes andmetamyelocytes) > 1% indicates that a LEFT SHIFT is Present. BASO% 0.3 % (Normal) Range: 0-1 EO% 2.5 % (Normal) Range: 0-5 MONO% 6.9 % (Normal) Range: 0-10 LY% 20.0 % (Normal) Range: 19-41 NEUT% 69.9 % (Normal) Range: 47-70 MPV 10.4 fL (Normal) Range: 6.2-12.0 PLT 194 K/mm3 (Normal) Range: 150-450 RDW SD 45.0 fL (Abnormal) Range: 35.1-43.9 RDW CV 13.1 % (Normal) Range: 11.6-14.6 MCHC 32.3 {g/gl} (Normal) Range: 32-36 MCH 30.5 pg (Normal) Range: 27.0-32.0 MCV 94.6 fL (Normal) Range: 81-99 HCT 40.6 % (Normal) Range: 37-47 HGB 13.1 g/dL (Normal) Range: 12.0-15.0 RBC 4.29 {M/mm3} (Normal) Range: 4.2-5.4 WBC 6.8 K/mm3 (Normal) Range: 4.4-11.0 14-Ilh-180179:36 Microscopic Examination Comments: PATIENT WAS FASTINGPERFORMED BY: [employer] 1EQ [facility] [id number] Bacteria None seen (Normal) Mucus Threads Present (Normal) Epithelial Cells (non renal) 0-10 {/hpf} (Normal) Range: 0 - 10 RBC 0-2 {/hpf} (Normal) Range: 0 - 2 WBC 0-5 {/hpf} (Normal) Range: 0 - 5 :36 Anti-TPO Antibody (10776) Comments: PATIENT WAS FASTINGPERFORMED BY: [employer] 1[employer] [facility] [id number] Thyroid Peroxidase (TPO) Ab 51 {IU/mL} (Abnormal) Range: 0-34 :36 TSH (25639) Comments: PATIENT WAS FASTINGPERFORMED BY: [employer] Kvibbq5904 [facility] [id number] TSH 2.190 {uIU/mL} (Normal) Range: 0.450-4.500 :36 T4, FREE (THYROXINE) (69126) Comments: PATIENT WAS FASTINGPERFORMED BY: [employer] 1EQ [facility] [id number] T4,Free(Direct) 0.97 ng/dL (Normal) Range: 0.82-1.77 :36 T3, FREE (TRIDOTHYRONINE) (74264) Comments: PATIENT WAS FASTINGPERFORMED BY: [employer] [id number] [facility] [id number] Triiodothyronine,Free,Serum 2.7 pg/mL (Normal) Range: 2.0-4.4 :36 CALCIFIDIOL (78930) VIT D 25 Comments: PATIENT WAS FASTINGPERFORMED BY: [employer] Tikvmc2336 [facility] [id number] Vitamin D, 25-Hydroxy 25.1 ng/mL (Abnormal) Range: 30.0-100.0 Comments: Vitamin D deficiency has been defined by the [place] [employer] and an Endocrine Society practice guideline as alevel of serum 25-OH vitamin D less than 20 ng/mL (1,2).The Endocrine Society went on to further define vitamin Dinsufficiency as a level between 21 and 29 ng/mL (2).1. IOM ([place] [employer]). 2010. Dietary reference intakes for calcium and D. [place]: The National Academies Press.2. Mouna MF, Isa NC, Lokesh BOJORQUEZ, et al. Evaluation, treatment, and prevention of vitamin D deficiency: an Endocrine Society clinical practice guideline. JCEM. 2010; 96(7):1911-30. :36 URINALYSIS, W/ MICRO (99479) Comments: PATIENT WAS FASTINGPERFORMED BY: [employer] 1EQ [facility] [id number] Microscopic Examination See below: (Normal) Comments: Microscopic was indicated and was performed. Nitrite, Urine Negative (Normal) Urobilinogen,Semi-Qn 0.2 mg/dL (Normal) Range: 0.2-1.0 Bilirubin Negative (Normal) Occult Blood Trace (Abnormal) Ketones Negative (Normal) Glucose Negative (Normal) Protein Negative (Normal) WBC Esterase 1+ (Abnormal) Appearance Clear (Normal) Urine-Color Yellow (Normal) pH 6.5 (Normal) Range: 5.0-7.5 Specific [place] 1.012 (Normal) Range: 1.005-1.030 :36 MICROALBUMIN: CREATININE RATIO Comments: PATIENT WAS FASTINGPERFORMED BY: aTyr PharmaCentraState Healthcare SystemGvwsvt8135 [facility] [id number] (33690) AND (37486) Microalb/Creat Ratio <8.1 {mg/g_creat} (Normal) Range: 0.0-30.0 Microalbumin, Urine <3.0 ug/mL (Normal) Creatinine, Urine 37.1 mg/dL (Normal) :36 METABOLIC PANEL, COMPREHENSIVE Comments: PATIENT WAS FASTINGPERFORMED BY: [employer]70 [facility] [id number] (44278) ALT (SGPT) 17 [iU]/L (Normal) Range: 0-32 AST (SGOT) 19 [iU]/L (Normal) Range: 0-40 Alkaline Phosphatase, S 60 [iU]/L (Normal) Range: 39-117 Bilirubin, Total 0.4 mg/dL (Normal) Range: 0.0-1.2 A/G Ratio 2.3 (Abnormal) Range: 1.2-2.2 Globulin, Total 1.9 g/dL (Normal) Range: 1.5-4.5 Albumin, Serum 4.3 g/dL (Normal) Range: 3.5-5.5 Protein, Total, Serum 6.2 g/dL (Normal) Range: 6.0-8.5 Calcium, Serum 9.4 mg/dL (Normal) Range: 8.7-10.2 Carbon Dioxide, Total 23 mmol/L (Normal) Range: 18-29 Chloride, Serum 102 mmol/L (Normal) Range: 96-106 Potassium, Serum 4.6 mmol/L (Normal) Range: 3.5-5.2 Sodium, Serum 142 mmol/L (Normal) Range: 134-144 BUN/Creatinine Ratio 22 (Normal) Range: 9-23 eGFR If Africn Am 114 mL/min/1.73 (Normal) eGFR If NonAfricn Am 99 mL/min/1.73 (Normal) Creatinine, Serum 0.64 mg/dL (Normal) Range: 0.57-1.00 BUN 14 mg/dL (Normal) Range: 6-24 Glucose, Serum 88 mg/dL (Normal) Range: 65-99 :36 LIPID PANEL (78904) Comments: PATIENT WAS FASTINGPERFORMED BY: [employer]air6370 [facility] [id number] LDL/HDL Ratio 2.1 {ratio_units} (Normal) Range: 0.0-3.2 Comments: LDL/HDL Ratio Men Women 1/2 Avg.Risk 1.0 1.5 Av g.Risk 3.6 3.2 2X Avg.Risk 6.2 5.0 3X Avg.Risk 8.0 6.1 LDL Cholesterol Calc 118 mg/dL (Abnormal) Range: 0-99 VLDL Cholesterol Tony 30 mg/dL (Normal) Range: 5-40 HDL Cholesterol 55 mg/dL (Normal) Triglycerides 150 mg/dL (Abnormal) Range: 0-149 Cholesterol, Total 203 mg/dL (Abnormal) Range: 100-199 04-Nzu-129075:36 CBC W/AUTO DIFF WBC (01762) Comments: PATIENT WAS FASTINGPERFORMED BY: LabCoCentraState Healthcare SystemVewobe4691 [facility] [id number] Immature Grans (Abs) 0.0 {x10E3/uL} (Normal) Range: 0.0-0.1 Immature Granulocytes 0 % (Normal) Baso (Absolute) 0.0 {x10E3/uL} (Normal) Range: 0.0-0.2 Eos (Absolute) 0.2 {x10E3/uL} (Normal) Range: 0.0-0.4 Monocytes(Absolute) 0.5 {x10E3/uL} (Normal) Range: 0.1-0.9 Lymphs (Absolute) 2.1 {x10E3/uL} (Normal) Range: 0.7-3.1 Neutrophils (Absolute) 2.9 {x10E3/uL} (Normal) Range: 1.4-7.0 Basos 1 % (Normal) Eos 4 % (Normal) Monocytes 9 % (Normal) Lymphs 37 % (Normal) Neutrophils 49 % (Normal) Platelets 185 {x10E3/uL} (Normal) Range: 150-379 RDW 13.8 % (Normal) Range: 12.3-15.4 MCHC 33.4 g/dL (Normal) Range: 31.5-35.7 MCH 30.8 pg (Normal) Range: 26.6-33.0 MCV 92 fL (Normal) Range: 79-97 Hematocrit 38.0 % (Normal) Range: 34.0-46.6 Hemoglobin 12.7 g/dL (Normal) Range: 11.1-15.9 RBC 4.13 {x10E6/uL} (Normal) Range: 3.77-5.28 WBC 5.8 {x10E3/uL} (Normal) Range: 3.4-10.8 :16 HgA1C , Office (74870) HgA1C , Office 5.6 % (Normal) Range: 4.6 - 7.1 :16 Blood Glucose , Office (46700) Blood Glucose , Office 94 (Normal) :14 IGP, Aptima HPV, Comments: Source.............Cervical;EndocervicalNo. of containers..01 CYTYC Thin Prep VialPATIENT NOT FASTINGPERFORMED BY: =G [facility] Oxayakwnad658 [facility] W [id number] BY: WB L rfx 16/18,45 [facility] Ccqlpqxrez808 [facility] [place] [id number] HPV Aptima Negative (Normal) Comments: This test detects fourteen high-risk HPV types (16/18/31/33/35/39/45/51/52/56/58/59/66/68) without differentiation. Note: PAPSMR (Normal) Comments: The Pap smear is a screening test designed to aid in the detection ofpremalignant and malignant conditions of the uterine cervix. It is not adiagnostic procedure and should not be used as the sole mean s of detectingcervical cancer. Both false-positive and false-negative reports do occur. .This liquid based ThinPrep(R) pap test w as screened with theuse of an image guided system. See Note . (Normal) DIAGNOSIS: SPRCS (Normal) Comments: NEGATIVE FOR INTRAEPITHELIAL LESION AND MALIGNANCY.CELLULAR CHANGES ASSOCIATED WITH INFLAMMATION ARE PRESENT.THIS SPECIMEN WAS RESCREENED PART OF OUR BODY WIRER PROGRAM.Satisfactory for evaluati on. No endocervical component is identified.Z01.411Runaldo Espinal CytotechnologistDianne Waite Copy Preparer (ASCP) :14 Thin prep Pap Comments: Source.............Cervical;EndocervicalNo. of containers..01 CYTYC Thin Prep VialPATIENT NOT FASTINGPERFORMED BY: =G [facility] Zrrljukarv694 [facility] [id number] BY: WB Felipe (85739) (no STD [facility] Vrsskkfrbc527 [facility]andiInd[facility] [id number] Information: [id number] testing) Age Gdln ACOG Testing 30-65 (Normal) 4-Ruu-765072:29 CALCIFIDIOL (53294) VIT D 25 Comments: PATIENT WAS FASTINGPERFORMED BY: [facility] Pgissh8783 García RoadDublin [place] [id number] Vitamin D, 25-Hydroxy 18.4 ng/mL (Abnormal) Range: 30.0-100.0 Comments: Vitamin D deficiency has been defined by the [place] [employer] and an Endocrine Society practice guideline as alevel of serum 25-OH vitamin D less than 20 ng/mL (1,2).The Endocrine Society went on to further define vitamin Dinsufficiency as a level between 21 and 29 ng/mL (2).1. IOM ([place] [employer] [place]). 2010. Dietary reference intakes for calcium and D. [place]: The National Academies Press.2. Mouna MF, Isa NC, Lokesh BOJORQUEZ, et al. Evaluation, treatment, and prevention of vitamin D deficiency: an Endocrine Society clinical practice guideline. JCEM. 2010; 96(7):1911-30. [id number]-643381:29 TSH (46186) Comments: PATIENT WAS FASTINGPERFORMED BY: [facility] Hodsgt7219 [address] M[facility] Memorial HospitalDublin [place] [id number] TSH 3.080 {uIU/mL} (Normal) Range: 0.450-4.500 7-Cfv-555155:29 MICROALBUMIN: CREATININE RATIO Comments: PATIENT WAS FASTINGPERFORMED BY: [facility] Couvkr7087 García RoadDublin [place] [id number] (12041) AND (56085) Microalb/Creat Ratio <6.3 {mg/g_creat} (Normal) Range: 0.0-30.0 Microalbumin, Urine <3.0 ug/mL (Normal) Range: 0.0-17.0 Creatinine, Urine 47.5 mg/dL (Normal) Range: 15.0-278.0 :29 METABOLIC PANEL, Comments: PATIENT WAS FASTINGPERFORMED BY: aTyr PharmaGallup Indian Medical CenterEnufab5689 [facility] [id number] Information: [id number] COMPREHENSIVE (17140) ALT (SGPT) 23 [iU]/L (Normal) Range: 0-32 AST (SGOT) 23 [iU]/L (Normal) Range: 0-40 Alkaline Phosphatase, S 68 [iU]/L (Normal) Range: 39-117 Bilirubin, Total 0.3 mg/dL (Normal) Range: 0.0-1.2 A/G Ratio 2.2 (Normal) Range: 1.1-2.5 Globulin, Total 2.0 g/dL (Normal) Range: 1.5-4.5 Albumin, Serum 4.4 g/dL (Normal) Range: 3.5-5.5 Protein, Total, Serum 6.4 g/dL (Normal) Range: 6.0-8.5 Calcium, Serum 9.6 mg/dL (Normal) Range: 8.7-10.2 Carbon Dioxide, Total 24 mmol/L (Normal) Range: 18-29 Chloride, Serum 100 mmol/L (Normal) Range: 97-108 Potassium, Serum 4.3 mmol/L (Normal) Range: 3.5-5.2 Sodium, Serum 140 mmol/L (Normal) Range: 134-144 BUN/Creatinine Ratio 18 (Normal) Range: 9-23 eGFR If Africn Am 99 mL/min/1.73 (Normal) eGFR If NonAfricn Am 86 mL/min/1.73 (Normal) Creatinine, Serum 0.77 mg/dL (Normal) Range: 0.57-1.00 BUN 14 mg/dL (Normal) Range: 6-24 Glucose, Serum 95 mg/dL (Normal) Range: 65-99 :29 LIPID PANEL (09251) Comments: PATIENT WAS FASTINGPERFORMED BY: aTyr PharmaGallup Indian Medical CenterIsxhvx8180 [facility] [id number] LDL/HDL Ratio 2.7 {ratio_units} (Normal) Range: 0.0-3.2 Comments: LDL/HDL Ratio Men Women 1/2 Avg.Risk 1.0 1.5 Av g.Risk 3.6 3.2 2X Avg.Risk 6.2 5.0 3X Avg.Risk 8.0 6.1 LDL Cholesterol Calc 139 mg/dL (Abnormal) Range: 0-99 VLDL Cholesterol Tony 48 mg/dL (Abnormal) Range: 5-40 HDL Cholesterol 52 mg/dL (Normal) Comments: According to ATP-III Guidelines, HDL-C >59 mg/dL is considered anegative risk factor for CHD. Triglycerides 238 mg/dL (Abnormal) Range: 0-149 Cholesterol, Total 239 mg/dL (Abnormal) Range: 100-199 :09 HgA1C , Office (40721) HgA1C , Office 5.8 % (Normal) Range: 4.6 - 7.1 :16 D-Dimer Quantitative (DVT/PE) Comments: [facility] Zadhkrcssa2219 [facility]. [place], [place], [id number] D-DIMER QUANT 0.39 {FEU/ug/m} (Normal) Range: 0.27-0.49 Comments: NORMAL D-Dimer level (<0.50) indicates no DVT or PE. :09 Blood Glucose , Office (42096) Blood Glucose , Office 101 (Normal) Comments: done in office non fasting :09 HgA1C , Office (60872) HgA1C , Office 5.9 % (Normal) Range: 4.6 - 7.1 :10 HgA1C , Office (51761) HgA1C , Office 6.6 % (Normal) Range: 4.6 - 7.1 :51 METABOLIC PANEL, COMPREHENSIVE Comments: PATIENT WAS FASTINGPERFORMED BY: [facility] Kapwny9312 [facility] [id number] (02211) ALT (SGPT) 17 [iU]/L (Normal) Range: 0-32 AST (SGOT) 20 [iU]/L (Normal) Range: 0-40 Alkaline Phosphatase, S 62 [iU]/L (Normal) Range: 39-117 Bilirubin, Total 0.3 mg/dL (Normal) Range: 0.0-1.2 A/G Ratio 2.1 (Normal) Range: 1.1-2.5 Globulin, Total 2.0 g/dL (Normal) Range: 1.5-4.5 Albumin, Serum 4.1 g/dL (Normal) Range: 3.5-5.5 Protein, Total, Serum 6.1 g/dL (Normal) Range: 6.0-8.5 Calcium, Serum 9.7 mg/dL (Normal) Range: 8.7-10.2 Carbon Dioxide, Total 25 mmol/L (Normal) Range: 18-29 Chloride, Serum 101 mmol/L (Normal) Range: 97-108 Potassium, Serum 4.8 mmol/L (Normal) Range: 3.5-5.2 Sodium, Serum 142 mmol/L (Normal) Range: 134-144 BUN/Creatinine Ratio 13 (Normal) Range: 9-23 eGFR If Africn Am 99 mL/min/1.73 (Normal) eGFR If NonAfricn Am 86 mL/min/1.73 (Normal) Creatinine, Serum 0.78 mg/dL (Normal) Range: 0.57-1.00 BUN 10 mg/dL (Normal) Range: 6-24 Glucose, Serum 133 mg/dL (Abnormal) Range: 65-99 00-Bzz-55530:51 LIPID PANEL (85405) Comments: PATIENT WAS FASTINGPERFORMED BY: LabCoCentraState Healthcare SystemVtlljj6589 [facility] [id number] LDL/HDL Ratio 3.6 {ratio_units} (Abnormal) Range: 0.0-3.2 Comments: LDL/HDL Ratio Men Women 1/2 Avg.Risk 1.0 1.5 Av g.Risk 3.6 3.2 2X Avg.Risk 6.2 5.0 3X Avg.Risk 8.0 6.1 LDL Cholesterol Calc 138 mg/dL (Abnormal) Range: 0-99 VLDL Cholesterol Tony 41 mg/dL (Abnormal) Range: 5-40 HDL Cholesterol 38 mg/dL (Abnormal) Comments: According to ATP-III Guidelines, HDL-C >59 mg/dL is considered anegative risk factor for CHD. Triglycerides 204 mg/dL (Abnormal) Range: 0-149 Cholesterol, Total 217 mg/dL (Abnormal) Range: 100-199 67-Qap-33389:51 CBC W/AUTO DIFF WBC Comments: PATIENT WAS FASTINGPERFORMED BY: LabCoCentraState Healthcare SystemAahupp4255 [facility] [id number] Information: [id number] (35705) Immature Grans (Abs) 0.0 {x10E3/uL} (Normal) Range: 0.0-0.1 Immature Granulocytes 0 % (Normal) Baso (Absolute) 0.0 {x10E3/uL} (Normal) Range: 0.0-0.2 Eos (Absolute) 0.3 {x10E3/uL} (Normal) Range: 0.0-0.4 Monocytes(Absolute) 0.5 {x10E3/uL} (Normal) Range: 0.1-0.9 Lymphs (Absolute) 1.9 {x10E3/uL} (Normal) Range: 0.7-3.1 Neutrophils (Absolute) 2.5 {x10E3/uL} (Normal) Range: 1.4-7.0 Basos 1 % (Normal) Eos 5 % (Normal) Monocytes 10 % (Normal) Lymphs 36 % (Normal) Neutrophils 48 % (Normal) Platelets 243 {x10E3/uL} (Normal) Range: 150-379 RDW 13.8 % (Normal) Range: 12.3-15.4 MCHC 34.3 g/dL (Normal) Range: 31.5-35.7 MCH 30.6 pg (Normal) Range: 26.6-33.0 MCV 89 fL (Normal) Range: 79-97 Hematocrit 38.5 % (Normal) Range: 34.0-46.6 Hemoglobin 13.2 g/dL (Normal) Range: 11.1-15.9 RBC 4.31 {x10E6/uL} (Normal) Range: 3.77-5.28 WBC 5.3 {x10E3/uL} (Normal) Range: 3.4-10.8 :51 Anti-TPO Antibody (35497) Comments: PATIENT WAS FASTINGPERFORMED BY: LabCoCentraState Healthcare SystemGsrhos3917 [facility] [id number] Thyroid Peroxidase (TPO) Ab 16 {IU/mL} (Normal) Range: 0-34 :51 TSH (76903) Comments: PATIENT WAS FASTINGPERFORMED BY: [facility]6370 [facility] [id number] TSH 1.930 {uIU/mL} (Normal) Range: 0.450-4.500 :51 T4, FREE (THYROXINE) (47985) Comments: PATIENT WAS FASTINGPERFORMED BY: [facility]Henry [facility]6370 [facility] [id number] T4,Free(Direct) 0.89 ng/dL (Normal) Range: 0.82-1.77 :51 T3, FREE (TRIDOTHYRONINE) (87010) Comments: PATIENT WAS FASTINGPERFORMED BY: [facility]6370 [facility] [id number] Triiodothyronine,Free,Serum 3.2 pg/mL (Normal) Range: 2.0-4.4 4-Emj-487187:23 Urinalysis, Office (72459) UA - LEUKOCYTE ESTERASE Negative (Normal) UA - NITRITE Negative (Normal) URINE UROBILINGN CHRISTIAN TIMED 2 mg/dL (Normal) UA - PROTEIN Negative mg/dL (Normal) UA - PH 7.5 (Normal) UA - BLOOD Negative (Normal) UA - SPECIFIC GRAVITY 1.015 (Normal) UA - KETONES Negative mg/dL (Normal) UA - BILIRUBIN Negative (Normal) UA - GLUCOSE Negative (Normal) Plan of Care Name Dates Details Instructions Encounter for gynecological examination with abnormal finding : Safe sex Indication: Encounter for gynecological examination with abnormal finding Encounter for gynecological examination with abnormal finding : HPV Vaccine Information 2005 Indication: Encounter for gynecological examination with abnormal finding Encounter for gynecological examination with abnormal finding : Self breast exam Indication: Encounter for gynecological examination with abnormal finding Encounter for gynecological examination with abnormal finding : *Well Female Maintenance (SMC) Indication: Encounter for gynecological examination with abnormal finding Encounter for gynecological examination with abnormal finding : Pap/Pelvic/Bimanual/Rectal/Breast Exam was done. Indication: Encounter for gynecological examination with abnormal finding Former smoker : Eprescribed prescriptions (G8553) Indication: Former smoker BMI 39.0-39.9,adult : Follow up in 2 weeks for Gen med and Pap Indication: BMI 39.0-39.9,adult Former smoker : Eprescribed prescriptions (G8553) Indication: Former smoker BMI 36.0-36.9,adult : Follow up if no improvement or if symptoms worsen Indication: BMI 36.0-36.9,adult BMI 36.0-36.9,adult : Eprescribed prescriptions (G8553) Indication: BMI 36.0-36.9,adult Former smoker : Follow up if no improvement or if symptoms worsen Indication: Former smoker Chest congestion : Eprescribed prescriptions (G8553) Indication: Chest congestion Orgasmic headache : Reviewed Diagnostic Tests Indication: Orgasmic headache Other fatigue : Reviewed Lab Indication: Other fatigue Other fatigue : Follow up - Make appt after diagnostic tests Indication: Other fatigue Other fatigue : *fatigue education Indication: Other fatigue Chronic obstructive asthma with acute exacerbation (Renamed from Chronic obstructive asthma with exacerbation) : Follow up in 2 weeks Indication: Chronic obstructive asthma with acute exacerbation (Renamed from Chronic obstructive asthma with exacerbation) Non-smoker : Eprescribed prescriptions (G8553) Indication: Non-smoker Chronic obstructive asthma with acute exacerbation (Renamed from Chronic obstructive asthma with exacerbation) : Follow up if no improvement or if symptoms worsen Indication: Chronic obstructive asthma with acute exacerbation (Renamed from Chronic obstructive asthma with exacerbation) Cough : Eprescribed prescriptions (G8553) Indication: Cough Coronary artery disease, non-occlusive : Continue Current Prescription(s) Indication: Coronary artery disease, non-occlusive 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 Hyperlipemia : Reviewed Lab Indication: Hyperlipemia Diabetes mellitus type II, controlled, with no complications : Follow up in 3 months Indication: Diabetes mellitus type II, controlled, with no complications Benign hypertensive heart disease without congestive heart failure : Diet, Exercise, and Wt loss Indication: Benign hypertensive heart disease without congestive heart failure Benign hypertensive heart disease without congestive heart failure : HTN/CAD Red Flags Indication: Benign hypertensive heart disease without congestive heart failure Hyperlipemia : Cholesterol mgmt Indication: Hyperlipemia Diabetes mellitus type II, controlled, with no complications : Diabetes and Exercise: Preventing Low Blood Sugar: blood sugar Indication: Diabetes mellitus type II, controlled, with no complications Hypercholesteremia (Renamed from Hypercholesterolemia) : Cholesterol mgmt Indication: Hypercholesteremia (Renamed from Hypercholesterolemia) 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 Diabetes mellitus type II, controlled, with no complications : Follow up in 3 months Indication: Diabetes mellitus type II, controlled, with no complications Hyperlipemia : Cholesterol mgmt Indication: Hyperlipemia Diabetes mellitus type II, controlled, with no complications : Eprescribed prescriptions (G8553) Indication: Diabetes mellitus type II, controlled, with no complications Chronic obstructive asthma with acute exacerbation (Renamed from Chronic obstructive asthma with exacerbation) : Follow up if no improvement or if symptoms worsen Indication: Chronic obstructive asthma with acute exacerbation (Renamed from Chronic obstructive asthma with exacerbation) Dizziness : *Vertigo Education Indication: Dizziness Nicotine dependence, uncomplicated, unspecified nicotine product type : Eprescribed prescriptions (G8553) Indication: Nicotine dependence, uncomplicated, unspecified nicotine product type Chronic obstructive asthma with acute exacerbation (Renamed from Chronic obstructive asthma with exacerbation) : *Antibiotic Usage Education - Female Indication: Chronic obstructive asthma with acute exacerbation (Renamed from Chronic obstructive asthma with exacerbation) Chronic obstructive asthma with acute exacerbation (Renamed from Chronic obstructive asthma with exacerbation) : Solu Medrol Injection/ Education Indication: Chronic obstructive asthma with acute exacerbation (Renamed from Chronic obstructive asthma with exacerbation) Encounter for gynecological examination with abnormal finding : Self breast exam Indication: Encounter for gynecological examination with abnormal finding Encounter for gynecological examination with abnormal finding : *Well Female Maintenance (SMC) Indication: Encounter for gynecological examination with abnormal finding Encounter for gynecological examination with abnormal finding : Pap/Pelvic/Bimanual/Rectal/Breast Exam was done. Indication: Encounter for gynecological examination with abnormal finding Encounter for gynecological examination with abnormal finding : Eprescribed prescriptions (G8553) Indication: Encounter for gynecological examination with abnormal finding Hyperlipemia : High Cholesterol (Hypercholesterolemia) *: diets Indication: Hyperlipemia Wheeze : Follow up in 1 week- dr kilpatrick to do nancy plus gen med Indication: Wheeze Wheeze : Eprescribed prescriptions (G8553) Indication: Wheeze Wheeze : Follow up if no improvement or if symptoms worsen Indication: Wheeze BRONCHITIS, NOT SPECIFIED ACUTE OR CHRONIC (490.) : *Antibiotic Usage Education - Female Indication: BRONCHITIS, NOT SPECIFIED ACUTE OR CHRONIC (490.) BRONCHITIS, NOT SPECIFIED ACUTE OR CHRONIC (490.) : *URI Treatment Indication: BRONCHITIS, NOT SPECIFIED ACUTE OR CHRONIC (490.) BRONCHITIS, NOT SPECIFIED ACUTE OR CHRONIC (490.) : *URI Symptoms Indication: BRONCHITIS, NOT SPECIFIED ACUTE OR CHRONIC (490.) BRONCHITIS, NOT SPECIFIED ACUTE OR CHRONIC (490.) : *Antibiotic Usage Education - Female Indication: BRONCHITIS, NOT SPECIFIED ACUTE OR CHRONIC (490.) Diabetes mellitus type II, controlled, with no complications : Eprescribed prescriptions (G8553) Indication: Diabetes mellitus type II, controlled, with no complications Morbid Obesity (Renamed from Extreme obesity) : Contrave Patient Instructions Indication: Morbid Obesity (Renamed from Extreme obesity) Diabetes mellitus type II, controlled, with no complications : Eprescribed prescriptions (G8553) Indication: Diabetes mellitus type II, controlled, with no complications Planned Observations HPV automatic ([id number])Indication: Screening for HPV (human papillomavirus) (Renamed from Encounter for screening for human papillomavirus (HPV)) On: 19-Qhx-[id number]:09 Request Thin prep Pap ([id number]) (no STD testing)Indication: Encounter for gynecological examination with abnormal finding On: 01-Qey-738034:24 Request URINALYSIS ([id number])Indication: Hematuria On: :29 Request REVERSE TRIDOTHYRONINE ([id number])Indication: Argelia's disease On: :24 Request TSH ([id number])Indication: Argelia's disease On: 87-Moc-173315:23 Request T4, FREE (THYROXINE) ([id number])Indication: Argelia's disease On: :23 Request T3, FREE (TRIDOTHYRONINE) ([id number])Indication: Argelia's disease On: 88-Yva-225828:23 Request D-Dimer ([id number])Indication: Shortness of breath at rest On: 73-Vgc-322585:03 Request TSH ([id number])Indication: H/O Argelia thyroiditis On: :31 Request URINALYSIS, W/ MICRO ([id number])Indication: Diabetes mellitus type II, controlled, with no complications On: :31 Request METABOLIC PANEL, COMPREHENSIVE ([id number])Indication: Diabetes mellitus type II, controlled, with no complications On: : Request LIPID PANEL ([id number])Indication: Diabetes mellitus type II, controlled, with no complications On: : Request CBC with auto diff ([id number])Indication: Diabetes mellitus type II, controlled, with no complications On: 2-Xyv-345470:31 Request Planned Procedures ULTRASOUND OF [place] On: 22-Sep-2018 Intent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 effects (contrave gave flu like sx. ). Patient sleeps 8 hours per night. Impact of disease: emotional impact-mild. Nutrition: balanced diet and supplemental vitamins. The medical issues t he patient is following up for include asthma, blood sugar issues, cardiac issues, fibromyalgia, high blood pressure, high cholesterol and other (tobacco use, obesity ).Encounter Diagnosis: Diabetes type II,controlled no comp (250.00), Hypertension,benign(401.1), DISORDER, TOBACCO USE (305.1), H/O Argelia thyroiditis, Asthma (493.11), MVP (mitral valve prolapse), Hypersomnia, Hyperlipemia, Morbid Obesity (Renamed from Extreme obesity), Fibromyalgia (Renamed from Diffuse myofascial pain syndrome), Obesity,unspecified (278.00), Hair thinning [facility] Phone Encounter On: 10-Sep-2014 7:45 [facility] End: 10-Sep-2014 7:46 Refill Request On: 16-Jul-2014 9:41 Encounter Diagnosis: Diabetes type II,controlled no comp (250.00) End: 16-Jul-2014 9:42 [facility] Office Visit On: 02-Jul-2014 15:39 Encounter Reason: Follow up tests - Date: (06.24.14).Encounter Diagnosis: Abdominal Pain,LLQ (789.04), MVP (mitral valve prolapse), Morbid Obesity (Renamed from Extreme obesity), Fibromyalgia (Renamed from Diffuse myofascial pain syndrome), End: 02-Jul-2014 16:32 Hypersomnia, Diabetes type II,controlled no comp (250.00), Hyperlipemia [facility] Office Visit On: 17-Jun-2014 11:14 Encounter Reason: Transition into care - The patient is transitioning into care from another physician and a summary of care was reviewed ., [ADDITIONAL REASON] new patient female physical - Last seen between 3-6 months ago. General health: End: 19-Jun-2014 20:55 feels well with minor complaints, has good energy level and is sleeping well. The patient's appetite is normal. Nutrition: normal/adequate. Exercises 0 days per week. Sleeps on average 8 hours per night . Elimination problems include urinary frequency and diarrhea. Safety measures include appropriate use of safety belts and home smoke detectors. Current emotional problems include anxiety and depression . screening, colonoscopy (never had one), screening, mammography (has order, is due now ), screening, Pap smear (January 2014 [place], [place] ) and screening, visual acuity (wears glasses January 2014 ). Encounter Diagnosis: Fibromyalgia (Renamed from Diffuse myofascial pain syndrome), Asthma (493.11), Hypertension,benign(401.1), Dysuria, H/O Argelia thyroiditis, Morbid Obesity (Renamed from Extreme obesity), WWV V73.21, Abdominal Pain,LLQ (789.04), DISORDER, TOBACCO USE (305.1), NEED FOR PROPHYLACTIC VACCINATION AND INOCULATION AGAINST INFLUENZA (V04.81) [facility] Payers [employer]/Aubrey Hoover; a guarantor
--- OUTSIDE RECORDS SUMMARY | 2018-12-03 06:13 | XMS RPT_ITS | Continuity of Care Document ---
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 Range: 0 - 2 WBC 0-5 {/hpf} (Normal) Range: 0 - 5 :36 Anti-TPO Antibody (36609) Comments: PATIENT WAS FASTINGPERFORMED BY: Companion [employer] Bud[employer] Biologist [facility] [id number] Thyroid Peroxidase (TPO) Ab 51 {IU/mL} (Abnormal) Range: 0-34 :36 TSH (31057) Comments: PATIENT WAS FASTINGPERFORMED BY: Companion Canine Cbanzc5912 [facility] [id number] TSH 2.190 {uIU/mL} (Normal) Range: 0.450-4.500 :36 T4, FREE (THYROXINE) (24049) Comments: PATIENT WAS FASTINGPERFORMED BY: Companion Canine Budding Biologist [facility] [id number] T4,Free(Direct) 0.97 ng/dL (Normal) Range: 0.82-1.77 :36 T3, FREE (TRIDOTHYRONINE) (61040) Comments: PATIENT WAS FASTINGPERFORMED BY: Companion Canine Apbmrj6290 [facility] [id number] Triiodothyronine,Free,Serum 2.7 pg/mL (Normal) Range: 2.0-4.4 :36 CALCIFIDIOL (46910) VIT D 25 Comments: PATIENT WAS FASTINGPERFORMED BY: Companion Canine Mslkrt6742 [facility] [id number] Vitamin D, 25-Hydroxy 25.1 ng/mL (Abnormal) Range: 30.0-100.0 Comments: Vitamin D deficiency has been defined by the [place] of[place]icine and an Endocrine Society practice guideline as alevel of serum 25-OH vitamin D less than 20 ng/mL (1,2).The Endocrine Society went on to further define vitamin Dinsufficiency as a level between 21 and 29 ng/mL (2).1. IOM ([place] of [employer]). 2010. Dietary reference intakes for calcium and D. [place]: The National Academies Press.2. Mouna MF, Isa [place], Lokesh BOJORQUEZ, et al. Evaluation, treatment, and prevention of vitamin D deficiency: an Endocrine Society clinical practice guideline. JCEM. 2010; 96(7):1911-30. :36 URINALYSIS, W/ MICRO (23989) Comments: PATIENT WAS FASTINGPERFORMED BY: Companion Canine Budding Biologist [facility] [id number] Microscopic Examination See below: (Normal) Comments: Microscopic was indicated and was performed. Nitrite, Urine Negative (Normal) Urobilinogen,Semi-Qn 0.2 mg/dL (Normal) Range: 0.2-1.0 Bilirubin Negative (Normal) Occult Blood Trace (Abnormal) Ketones Negative (Normal) Glucose Negative (Normal) Protein Negative (Normal) WBC Esterase 1+ (Abnormal) Appearance Clear (Normal) Urine-Color Yellow (Normal) pH 6.5 (Normal) Range: 5.0-7.5 Specific [place] 1.012 (Normal) Range: 1.005-1.030 :36 MICROALBUMIN: CREATININE RATIO Comments: PATIENT WAS FASTINGPERFORMED BY: Companion CanineThe Memorial Hospital of Salem CountyZpplwy7414 [facility] [id number] ([id number]) AND (45935) Microalb/Creat Ratio <8.1 {mg/g_creat} (Normal) Range: 0.0-30.0 Microalbumin, Urine <3.0 ug/mL (Normal) Creatinine, Urine 37.1 mg/dL (Normal) :36 METABOLIC PANEL, COMPREHENSIVE Comments: PATIENT WAS FASTINGPERFORMED BY: [employer]70 [facility] [id number] (85712) ALT (SGPT) 17 [iU]/L (Normal) Range: 0-32 [...] mg/dL (Normal) Range: 65-99 :36 LIPID PANEL (80775) Comments: PATIENT WAS FASTINGPERFORMED BY: KAI Square6370 GarcíaZappyLabNovant Health Rehabilitation Hospital [id number] LDL/HDL Ratio 2.1 {ratio_units} (Normal) Range: 0.0-3.2 Comments: LDL/HDL Ratio Men Women 1/2 Avg.Risk 1.0 1.5 Av g.Risk 3.6 3.2 2X Avg.Risk 6.2 5.0 3X Avg.Risk 8.0 6.1 LDL Cholesterol Calc 118 mg/dL (Abnormal) Range: 0-99 VLDL Cholesterol Tony 30 mg/dL (Normal) Range: 5-40 HDL Cholesterol 55 mg/dL (Normal) Triglycerides 150 mg/dL (Abnormal) Range: 0-149 Cholesterol, Total 203 mg/dL (Abnormal) Range: 100-199 25-Xqa-758506:36 CBC W/AUTO DIFF WBC (96484) Comments: PATIENT WAS FASTINGPERFORMED BY: LabCoThe Memorial Hospital of Salem CountyJkbqtx5891 [facility] [id number] Immature Grans (Abs) 0.0 {x10E3/uL} (Normal) Range: [...] (Normal) Range: 3.4-10.8 :16 HgA1C , Office (91884) HgA1C , Office 5.6 % (Normal) Range: 4.6 - 7.1 :16 Blood Glucose , Office (16515) Blood Glucose , Office 94 (Normal) :14 IGP, Aptima HPV, Comments: Source.............Cervical;EndocervicalNo. of containers..01 CYTYC Thin Prep VialPATIENT NOT FASTINGPERFORMED BY: =G [facility] Azeogwusvs946 [facility] W [id number] BY: WB L rfx 16/18,45 [facility] Tvwhihqgog952 [facility] [place] [id number] HPV Aptima Negative (Normal) Comments: This test [...] PRESENT.THIS SPECIMEN WAS RESCREENED PART OF OUR CRYSTAL [employer]AT GRINDER PROGRAM.Satisfactory for evaluati on. No endocervical component is identified.Z01.411Runaldo Espinal CytotechnologistDianne Waite Fence Making Machine Operator (ASCP) :14 Thin prep Pap Comments: Source.............Cervical;EndocervicalNo. of containers..01 CYTYC Thin Prep VialPATIENT NOT FASTINGPERFORMED BY: =G [facility] Pnvbufmrkd190 [facility] [id number] BY: WB Felipe ([id number]) (no STD [facility] Toxvqfydvq469 [facility]alsandiBuck[facility] [id number] Information: [id number] testing) Age Gdln ACOG Testing 30-65 (Normal) 4-Erd-375865:29 CALCIFIDIOL (99244) VIT D 25 Comments: PATIENT WAS FASTINGPERFORMED BY: [facility] Scbxja5592 Gacría RoadDublin [place] [id number] Vitamin D, 25-Hydroxy 18.4 ng/mL (Abnormal) Range: 30.0-100.0 Comments: Vitamin D deficiency has been defined by the [place] of[place]icine and an Endocrine Society practice guideline as alevel of serum 25-OH vitamin D less than 20 ng/mL (1,2).The Endocrine Society went on to further define vitamin Dinsufficiency as a level between 21 and 29 ng/mL (2).1. IOM ([place] of [employer]). 2010. Dietary reference intakes for calcium and D. [place]: The National Academies Press.2. Mouna MF, sIa [place], Lokesh BOJORQUEZ, et al. Evaluation, treatment, and prevention of vitamin D deficiency: an Endocrine Society clinical practice guideline. JCEM. 2010; 96(7):1911-30. 6-Qkn-230674:29 TSH (37327) Comments: PATIENT WAS FASTINGPERFORMED BY: [facility] Zgjqmd9505 García Deck[facility] Community HospitalDublin [place] [id number] TSH 3.080 {uIU/mL} (Normal) Range: 0.450-4.500 6-Udg-652370:29 MICROALBUMIN: CREATININE RATIO Comments: PATIENT WAS FASTINGPERFORMED BY: [facility] Uyfzlg6945 García RoadDublin [place] [id number] (79176) AND (22833) Microalb/Creat Ratio <6.3 {mg/g_creat} (Normal) Range: 0.0-30.0 Microalbumin, Urine <3.0 ug/mL (Normal) Range: 0.0-17.0 Creatinine, Urine 47.5 mg/dL (Normal) Range: 15.0-278.0 :29 METABOLIC PANEL, Comments: PATIENT WAS FASTINGPERFORMED BY: Companion CanineAcoma-Canoncito-Laguna Service UnitEithmq7492 [facility] [id number] Information: [id number] COMPREHENSIVE (95677) ALT (SGPT) 23 [iU]/L (Normal) Range: 0-32 [...] mg/dL (Normal) Range: 65-99 :29 LIPID PANEL (29949) Comments: PATIENT WAS FASTINGPERFORMED BY: Companion CanineAcoma-Canoncito-Laguna Service UnitOhxoli4134 [facility] [id number] LDL/HDL Ratio 2.7 {ratio_units} (Normal) Range: 0.0-3.2 [...] (Abnormal) Range: 100-199 :09 HgA1C , Office (95769) HgA1C , Office 5.8 % (Normal) Range: 4.6 - 7.1 :16 D-Dimer Quantitative (DVT/PE) Comments: [facility] Zmbldyoiip8673 [facility]. [place], [place], [id number] D-DIMER QUANT 0.39 {FEU/ug/m} (Normal) Range: 0.27-0.49 Comments: NORMAL D-Dimer level (<0.50) indicates no DVT or PE. :09 Blood Glucose , Office (12800) Blood Glucose , Office 101 (Normal) Comments: done in office non fasting :09 HgA1C , Office (30837) HgA1C , Office 5.9 % (Normal) Range: 4.6 - 7.1 :10 HgA1C , Office (77554) HgA1C , Office 6.6 % (Normal) Range: 4.6 - 7.1 :51 METABOLIC PANEL, COMPREHENSIVE Comments: PATIENT WAS FASTINGPERFORMED BY: [facility] Emjqlj0539 [facility] [id number] (01171) ALT (SGPT) 17 [iU]/L (Normal) Range: 0-32 [...] Glucose, Serum 133 mg/dL (Abnormal) Range: 65-99 67-Gdc-96005:51 LIPID PANEL (00913) Comments: PATIENT WAS FASTINGPERFORMED BY: LabCoThe Memorial Hospital of Salem CountyGhxveo8343 [facility] [id number] LDL/HDL Ratio 3.6 {ratio_units} (Abnormal) Range: 0.0-3.2 [...] Cholesterol, Total 217 mg/dL (Abnormal) Range: 100-199 27-Jwq-13671:51 CBC W/AUTO DIFF WBC Comments: PATIENT WAS FASTINGPERFORMED BY: LabCoThe [facility] Hospital of Salem CountyIchqvc6705 [facility] [id number] Information: [id number] (78480) Immature Grans (Abs) 0.0 {x10E3/uL} (Normal) Range: [...] {x10E3/uL} (Normal) Range: 3.4-10.8 :51 Anti-TPO Antibody (44409) Comments: PATIENT WAS FASTINGPERFORMED BY: LabCoThe Memorial Hospital of Salem CountyJaswnx8618 [facility] [id number] Thyroid Peroxidase (TPO) Ab 16 {IU/mL} (Normal) Range: 0-34 :51 TSH (53461) Comments: PATIENT WAS FASTINGPERFORMED BY: [facility]6370 [facility] [id number] TSH 1.930 {uIU/mL} (Normal) Range: 0.450-4.500 :51 T4, FREE (THYROXINE) (42957) Comments: PATIENT WAS FASTINGPERFORMED BY: LabMary [facility] Bed Rehabilitation Hospital6370 [facility] [id number] T4,Free(Direct) 0.89 ng/dL (Normal) Range: 0.82-1.77 :51 T3, FREE (TRIDOTHYRONINE) (68070) Comments: PATIENT WAS FASTINGPERFORMED BY: [facility]6370 [facility] [id number] Triiodothyronine,Free,Serum 3.2 pg/mL (Normal) Range: 2.0-4.4 9-Wfh-100543:23 Urinalysis, Office (62724) UA - LEUKOCYTE ESTERASE Negative (Normal) UA [...] with no complications Planned Observations HPV automatic (79692)Indication: Screening for HPV (human papillomavirus) (Renamed from Encounter for screening for human papillomavirus (HPV)) On: 70-Ghq-966546:09 Request Thin prep Pap (57181) (no STD testing)Indication: Encounter for gynecological examination with abnormal finding On: 73-Spe-443073:24 Request URINALYSIS (75092)Indication: Hematuria On: :29 Request REVERSE TRIDOTHYRONINE (18840)Indication: Argelia's disease On: :24 Request TSH (75932)Indication: Argelia's disease On: 06-Vpi-121457:23 Request T4, FREE (THYROXINE) (50471)Indication: Argelia's disease On: :23 Request T3, FREE (TRIDOTHYRONINE) (01873)Indication: Argelia's disease On: 60-Ehp-772029:23 Request D-Dimer (13372)Indication: Shortness of breath at rest On: 45-Svs-384445:03 Request TSH (79046)Indication: H/O Argelia thyroiditis On: :31 Request URINALYSIS, W/ MICRO (93374)Indication: Diabetes mellitus type II, controlled, with no complications On: :31 Request METABOLIC PANEL, COMPREHENSIVE (81766)Indication: Diabetes mellitus type II, controlled, with no complications On: : Request LIPID PANEL (73957)Indication: Diabetes mellitus type II, controlled, with no complications On: : Request CBC with auto diff (55409)Indication: Diabetes mellitus type II, controlled, with no complications On: 7-Epg-537704:31 Request Planned Procedures ULTRASOUND OF PELVIC REGION On: 22-Sep-2018 Intent (16296)By: Suzy Willis DO, DO, Kathleen DEXA SCAN AXIAL SKELETON (11203)By: On: 22-Sep-2018 Intent Suzy Willis DO, DO, Suzy SCREENING DIGITAL TOMOSYNTHESIS OF On: 22-Sep-2018 Intent BREAST (79773)By: Suzy Willis DO, DO, Suzy SCREENING DIGITAL TOMOSYNTHESIS OF On: 07-Oct-2017 Intent BREAST (58902)By: Suzy Willis DO, DO, Kathleen MRA OF BRAIN (37648)By: Alba GRANADOS, On: 30-Sep-2017 Intent Suzy Eisenberg DO ELECTROCARDIOGRAM, COMPLETE (ECG) On: 30-Sep-2017 Intent (02406)By: Suzy Willis DO Comments: sinus jose no acute chg Suzy Willis DO Holter Monitor 24 hrsBy: Alba GRANADOS, On: 30-Sep-2017 Intent Suzy Eisenberg DO Aerosol Treatment (17026)By: Alba On: 08-Sep-2017 Intent Suzy GRANADOS DO, Kathleen Comments: less tight more a/e - no wheeze -pt rpeorts feeling looser Spirometry (07976)By: Alba GRANADOS, On: 08-Sep-2017 Intent Suzy Eisenberg DO Comments: restrivive pattern - good curve ELECTROCARDIOGRAM, COMPLETE (ECG) On: 20-Dec-2016 Intent (86042)By: Suzy Willis DO Comments: no acute chg Suzy Willis DO Spirometry (03833)By: Alba GRANADOS, On: 20-Dec-2016 Intent Suzy Eisenberg DO Comments: unremarkable Aerosol Treatment (53826)By: Alba On: 12-Mar-2016 Suzy Vergara DO, DO, Kathleen Comments: more air exhchg less noise not as tight Solu- Medrol Injection, 125mg On: 12-Mar-2016 Intent (J2930)By: Suzy Willis DO Comments: lot # [id number] exp 11/28 r hip Alba DO, Suzy PNEUM VAC ADLT/IMUMNOSPR, SBC/INTRM On: 03-Feb-2016 Intent (49684)By: Yelena Kilpatrick MD MAMMOGRAM, SCREENING, BOTH BREAST On: 13-Nov-2015 Intent (86168)By: Yelena Kilpatrick MD CT - Chest (Without Contrast)By: On: 13-Nov-2015 Intent Yelena Kilpatrick MD Comments: LDCT 30 + pack years Radiology - Chest- PA and LatBy: On: 09-Oct-2015 Intent Suzy Willis DO Alba DO, Suzy CT - Abdomen & PelvisBy: Rafiq On: 02-Jul-2014 Intent Yelena RIVERA Comments: pt refuse IV dye. IMMUNIZ ADMNIN, 1 VAC, SNGL/COMBO On: 17-Jun-2014 Intent (65005)By: Yelena Kilpatrick MD FLU VAC, SPLIT, >3 YEARS, INTRAMUSC On: 17-Jun-2014 Intent (81357)By: Yelena Kilpatrick MD Comments: Lot #:[id number] date:8-54-3099Bmcoan given:.5ml Route: IM Site given:left deltoid Given by: alec Ultrasound - PelvisBy: Rafiq RIVERA, On: 17-Jun-2014 Intent Yelena Aldana EKG (10619)By: Yelena Kilpatrick MD On: 17-Jun-2014 Intent Comments: [...] now ), screening, Pap smear (January 2014 [place], [place] ) and screening, visual acuity (wears [...]
--- OUTSIDE RECORDS SUMMARY | 2018-12-03 06:14 | XMS RPT_ITS | Continuity of Care Document ---
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 [facility] [id number] Triiodothyronine,Free,Serum 2.9 pg/mL (Normal) Range: 2.0-4.4 :05 HgA1C , Office (69532) HgA1C , Office 5.7 % (Normal) Range: 4.6 - 7.1 :05 Blood Glucose , Office (64797) Blood Glucose , Office 108 (Normal) :53 CBC With Differential/Platelet Comments: PATIENT WAS FASTINGPERFORMED BY: LabCoKindred Hospital at WayneBmavjx0268 [facility] [id number] BY: [place] [employer] [id number] Immature Grans (Abs) 0.0 {x10E3/uL} (Normal) Range: [...] 3.77-5.28 WBC 5.8 {x10E3/uL} (Normal) Range: 3.4-10.8 90-Fia-32043:53 Comp. Metabolic Panel Comments: PATIENT WAS FASTINGPERFORMED BY: [facility]inkercadKindred Hospital at WaynePldbhk7505 [facility] [id number] BY: [address] [id number] (14) ALT (SGPT) 17 [iU]/L (Normal) Range: [...] Glucose, Serum 97 mg/dL (Normal) Range: 65-99 62-Nmt-83387:53 Lipid Panel With LDL/HDL Comments: PATIENT WAS FASTINGPERFORMED BY: CB [facility] Jspecd3062 [facility] [id number] BY: BN [facility] [address] [id number]; will review on 04/15 Ratio LDL/HDL Ratio [...] Ratio, Randm Comments: PATIENT WAS FASTINGPERFORMED BY: [facility]ercadKindred Hospital at WayneWzhhuz3483 [facility] [id number] BY: [address] [id number] Ur Microalb/Creat Ratio <5.1 {mg/g_creat} (Normal) Range: 0.0-30.0 Microalbumin, Urine <3.0 ug/mL (Normal) Creatinine, Urine 58.9 mg/dL (Normal) :53 Microscopic Examination Comments: PATIENT WAS FASTINGPERFORMED BY: G[facility]pointKindred Hospital at WayneWgnrmj3229 [facility] [id number] BY: [address] [id number] Bacteria None seen (Normal) Mucus Threads Present (Normal) Epithelial Cells (non 0-10 {/hpf} Range: 0 - 10 renal) (Normal) RBC None seen {/hpf} Range: 0 - 2 (Normal) WBC 0-5 {/hpf} (Normal) Range: 0 - 5 Reverse T3, Serum 27.8 ng/dL Comments: PATIENT WAS FASTINGPERFORMED BY: [place] 4977770 [facility] [id number] BY: [address] [id number] :53 (Abnormal) Range: 9.2-24.1 Thyroid Peroxidase 79 {IU/mL} Comments: PATIENT WAS FASTINGPERFORMED BY: [facility] Hospital[facility] Mer[facility]ants[address] [id number] BY: [address] [id number] :53 (TPO) Ab (Abnormal) Range: 0-34 71-Lfh-94965:53 Thyroxine (T4) Free, Comments: PATIENT WAS FASTINGPERFORMED BY: [place] 4977770 [facility] [id number] BY: [address] [id number] Direct, S T4,Free(Direct) 1.18 ng/dL Range: 0.82-1.77 (Normal) 08-Apr-2017 Triiodothyronine,Free,Seru 2.7 pg/mL (Normal) Comments: PATIENT WAS FASTINGPERFORMED BY: [place] 4977770 [facility] [id number] BY: [address] [id number] 9:53 m Range: 2.0-4.4 08-Apr-2017 TSH 2.850 {uIU/mL} Comments: PATIENT WAS FASTINGPERFORMED BY: [place] 4977770 [facility] [id number] BY: [address] [id number] 9:53 (Normal) Range: 0.450-4.500 :53 Urinalysis, Complete Comments: PATIENT WAS FASTINGPERFORMED BY: [place] 4977770 [facility] [id number] BY: [address] [id number] Microscopic Examination See below: (Normal) Comments: Microscopic was indicated and was performed. Nitrite, Urine Negative (Normal) Urobilinogen,Semi-Qn 0.2 mg/dL (Normal) Range: 0.2-1.0 Bilirubin Negative (Normal) Occult Blood Negative (Normal) Ketones Negative (Normal) Glucose Negative (Normal) Protein Negative (Normal) WBC Esterase Trace (Abnormal) Appearance Clear (Normal) Urine-Color Yellow (Normal) pH 7.0 (Normal) Range: 5.0-7.5 Specific [place] 1.008 (Normal) Range: 1.005-1.030 Vitamin D, 25-Hydroxy 60.2 ng/mL (Normal) Comments: PATIENT WAS FASTINGPERFORMED BY: CB [facility] Dlnwpz6246 [facility] [id number] BY: BN [facility] Zmvjqoqlfm8828 [facility] [id number] :53 Range: 30.0-100.0 Comments: Vitamin D deficiency has been defined by the [place] ofMedicine and an Endocrine Society practice guideline as alevel of serum 25-OH vitamin D less than 20 ng/mL (1,2).The Endocrine Society went on to further define vitamin Dinsufficiency as a level between 21 and 29 ng/mL (2).1. IOM ([place] of Medicine). 2010. Dietary reference intakes for calcium and D. [place]: The National Academies Press.2. Mouna MF, Isa FRYE, Lokesh BOJORQUEZ, et al. Evaluation, treatment, and prevention of vitamin D deficiency: an Endocrine Society clinical practice guideline. JCEM. 2010; 96(7):1911-30. 14-Fyj-265325:54 Basic Metabolic Profile (BMP) Comments: [facility] K[address]ugpzdb[address] [place], [address] GAP 7 (Normal) Range: 5-15 CO2 28.0 [...] <126 mg/dLsuggests IMPAIRED HOMEOSTASIS per A.D.A. criteria. :54 CBC W/Diff, Automated Comments: [facility] Kxrbkzwzfk08[address] [place], [place], [id number] Absolute Lymph 1.36 {X10_3/ul} (Normal) Range: 0.83-4.51 [...] 4.2-5.4 WBC 6.8 K/mm3 (Normal) Range: 4.4-11.0 32-Rda-936720:36 Microscopic Examination Comments: PATIENT WAS FASTINGPERFORMED BY: [facility] Lfppjg1612 [facility] [id number] Bacteria None seen (Normal) Mucus Threads Present (Normal) Epithelial Cells (non renal) 0-10 {/hpf} (Normal) Range: 0 - 10 RBC 0-2 {/hpf} (Normal) Range: 0 - 2 WBC 0-5 {/hpf} (Normal) Range: 0 - 5 :36 Anti-TPO Antibody (03025) Comments: PATIENT WAS FASTINGPERFORMED BY: [place] [facility]6370 [facility] [id number] Thyroid Peroxidase (TPO) Ab 51 {IU/mL} (Abnormal) Range: 0-34 :36 TSH (91712) Comments: PATIENT WAS FASTINGPERFORMED BY: [place] [facility]6370 [facility] [place] [id number] TSH 2.190 {uIU/mL} (Normal) Range: 0.450-4.500 :36 T4, FREE (THYROXINE) (87753) Comments: PATIENT WAS FASTINGPERFORMED BY: [place] [facility]6370 [facility] [id number] T4,Free(Direct) 0.97 ng/dL (Normal) Range: 0.82-1.77 :36 T3, FREE (TRIDOTHYRONINE) (75084) Comments: PATIENT WAS FASTINGPERFORMED BY: [place] [facility]6370 [facility] [place] [id number] Triiodothyronine,Free,Serum 2.7 pg/mL (Normal) Range: 2.0-4.4 :36 CALCIFIDIOL (50818) VIT D 25 Comments: PATIENT WAS FASTINGPERFORMED BY: [place] [facility]6370 [facility] [place] [id number] Vitamin D, 25-Hydroxy 25.1 ng/mL (Abnormal) Range: 30.0-100.0 Comments: Vitamin D deficiency has been defined by the [place] ofMedicine and an Endocrine Society practice guideline as alevel of serum 25-OH vitamin D less than 20 ng/mL (1,2).The Endocrine Society went on to further define vitamin Dinsufficiency as a level between 21 and 29 ng/mL (2).1. IOM ([place] of Medicine). 2010. Dietary reference intakes for calcium and D. [place]: The National Academies Press.2. Mouna BOWLES, Isa [place], Lokesh BOJORQUEZ, et al. Evaluation, treatment, and prevention of vitamin D deficiency: an Endocrine Society clinical practice guideline. JCEM. 2010; 96(7):1911-30. :36 URINALYSIS, W/ MICRO (39411) Comments: PATIENT WAS FASTINGPERFORMED BY: [facility] [id number] Microscopic Examination See below: (Normal) Comments: Microscopic was indicated and was performed. Nitrite, Urine Negative (Normal) Urobilinogen,Semi-Qn 0.2 mg/dL (Normal) Range: 0.2-1.0 Bilirubin Negative (Normal) Occult Blood Trace (Abnormal) Ketones Negative (Normal) Glucose Negative (Normal) Protein Negative (Normal) WBC Esterase 1+ (Abnormal) Appearance Clear (Normal) Urine-Color Yellow (Normal) pH 6.5 (Normal) Range: 5.0-7.5 Specific [place] 1.012 (Normal) Range: 1.005-1.030 :36 MICROALBUMIN: CREATININE RATIO Comments: PATIENT WAS FASTINGPERFORMED BY: [employer] Oktpqe3461 [facility] [id number] (21151) AND (18229) Microalb/Creat Ratio <8.1 {mg/g_creat} (Normal) Range: 0.0-30.0 Microalbumin, Urine <3.0 ug/mL (Normal) Creatinine, Urine 37.1 mg/dL (Normal) :36 METABOLIC PANEL, COMPREHENSIVE Comments: PATIENT WAS FASTINGPERFORMED BY: [employer] Mpyavr4565 [facility] [id number] (36368) ALT (SGPT) 17 [iU]/L (Normal) Range: 0-32 [...] mg/dL (Normal) Range: 65-99 :36 LIPID PANEL (34826) Comments: PATIENT WAS FASTINGPERFORMED BY: [employer]Chatous70 [facility] [id number] LDL/HDL Ratio 2.1 {ratio_units} (Normal) Range: 0.0-3.2 Comments: LDL/HDL Ratio Men Women 1/2 Avg.Risk 1.0 1.5 Av g.Risk 3.6 3.2 2X Avg.Risk 6.2 5.0 3X Avg.Risk 8.0 6.1 LDL Cholesterol Calc 118 mg/dL (Abnormal) Range: 0-99 VLDL Cholesterol Tony 30 mg/dL (Normal) Range: 5-40 HDL Cholesterol 55 mg/dL (Normal) Triglycerides 150 mg/dL (Abnormal) Range: 0-149 Cholesterol, Total 203 mg/dL (Abnormal) Range: 100-199 :36 CBC W/AUTO DIFF WBC (68992) Comments: PATIENT WAS FASTINGPERFORMED BY: [employer] [facility] Idzknk6884 [facility] [id number] Immature Grans (Abs) 0.0 {x10E3/uL} (Normal) Range: [...] 3.77-5.28 WBC 5.8 {x10E3/uL} (Normal) Range: 3.4-10.8 67-Qyo-900100:16 HgA1C , Office (71956) HgA1C , Office 5.6 % (Normal) Range: 4.6 - 7.1 :16 Blood Glucose , Office (54674) Blood Glucose , Office 94 (Normal) :14 IGP, Aptima HPV, Comments: Source.............Cervical;EndocervicalNo. of containers..01 CYTYC Thin Prep VialPATIENT NOT FASTINGPERFORMED BY: =G Lab[address] [id number] BY: WB L rfx ,[address] [id number] HPV Aptima Negative (Normal) Comments: This test [...] PRESENT.THIS SPECIMEN WAS RESCREENED PART OF OUR [employer] PROGRAM.Satisfactory for evaluati on. No endocervical component is identified.Z01.411Jacquelyn Espinal CytotechnologistDianne Waite Dyer Assistant (ASCP) 11-Ntu-29289:14 Thin prep Pap Comments: Source.............Cervical;EndocervicalNo. of containers..01 CYTYC Thin Prep VialPATIENT NOT FASTINGPERFORMED BY: =G LabNetwork [facility]ants [address]ef[address] [id number] BY: WB L (60580) (no STD [address] [id number] Information: [id number] testing) Age Gdln ACOG Testing 30-65 (Normal) 0-Xkh-823162:29 CALCIFIDIOL (38026) VIT D 25 Comments: PATIENT WAS FASTINGPERFORMED BY: SOLIS [facility] Gzdtbq1561 [facility] [place] [id number] Vitamin D, 25-Hydroxy 18.4 ng/mL (Abnormal) Range: 30.0-100.0 Comments: Vitamin D deficiency has been defined by the [place] ofMedicine and an Endocrine Society practice guideline as alevel of serum 25-OH vitamin D less than 20 ng/mL (1,2).The Endocrine Society went on to further define vitamin Dinsufficiency as a level between 21 and 29 ng/mL (2).1. IOM ([place] of Medicine). 2010. Dietary reference intakes for calcium and D. [place]: The National Academies Press.2. Mouna MF, Isa FRYE, Lokesh BOJORQUEZ, et al. Evaluation, treatment, and prevention of vitamin D deficiency: an Endocrine Society clinical practice guideline. JCEM. 2010; 96(7):9851-30. :29 TSH (22408) Comments: PATIENT WAS FASTINGPERFORMED BY: [employer]70 [facility] [id number] TSH 3.080 {uIU/mL} (Normal) Range: 0.450-4.500 :29 MICROALBUMIN: CREATININE RATIO Comments: PATIENT WAS FASTINGPERFORMED BY: [employer]70 [facility] [id number] (08964) AND (30686) Microalb/Creat Ratio <6.3 {mg/g_creat} (Normal) Range: 0.0-30.0 Microalbumin, Urine <3.0 ug/mL (Normal) Range: 0.0-17.0 Creatinine, Urine 47.5 mg/dL (Normal) Range: 15.0-278.0 :29 METABOLIC PANEL, Comments: PATIENT WAS FASTINGPERFORMED BY: [employer]70 [facility] [id number] Information: [id number] COMPREHENSIVE (06059) ALT (SGPT) 23 [iU]/L (Normal) Range: 0-32 [...] Glucose, Serum 95 mg/dL (Normal) Range: 65-99 1-Sof-624482:29 LIPID PANEL (62378) Comments: PATIENT WAS FASTINGPERFORMED BY: LabCoKindred Hospital at WayneDgmyrd9776 [facility] [id number] LDL/HDL Ratio 2.7 {ratio_units} (Normal) Range: 0.0-3.2 [...] Cholesterol, Total 239 mg/dL (Abnormal) Range: 100-199 4-Pkw-175398:09 HgA1C , Office (12853) HgA1C , Office 5.8 % (Normal) Range: 4.6 - 7.1 82-Zaq-649783:16 D-Dimer Quantitative (DVT/PE) Comments: [facility] Bonsldxytr[address] [place], [place], [id number] D-DIMER QUANT 0.39 {FEU/ug/m} (Normal) Range: 0.27-0.49 Comments: NORMAL D-Dimer level (<0.50) indicates no DVT or PE. :09 Blood Glucose , Office (88647) Blood Glucose , Office 101 (Normal) Comments: done in office non fasting :09 HgA1C , Office (25651) HgA1C , Office 5.9 % (Normal) Range: 4.6 - 7.1 :10 HgA1C , Office (52622) HgA1C , Office 6.6 % (Normal) Range: 4.6 - 7.1 :51 METABOLIC PANEL, COMPREHENSIVE Comments: PATIENT WAS FASTINGPERFORMED BY: LabCoKindred Hospital at WayneFvayrl3126 [facility] [id number] (31715) ALT (SGPT) 17 [iU]/L (Normal) Range: 0-32 [...] Glucose, Serum 133 mg/dL (Abnormal) Range: 65-99 :51 LIPID PANEL (55233) Comments: PATIENT WAS FASTINGPERFORMED BY: TinkercadKindred Hospital at WayneMxckjz2950 [facility] [id number] LDL/HDL Ratio 3.6 {ratio_units} (Abnormal) Range: 0.0-3.2 [...] Cholesterol, Total 217 mg/dL (Abnormal) Range: 100-199 :51 CBC W/AUTO DIFF WBC Comments: PATIENT WAS FASTINGPERFORMED BY: TinkercadKindred Hospital at WayneRvwtdy3729 [facility] [id number] Information: [id number] (86391) Immature Grans (Abs) 0.0 {x10E3/uL} (Normal) Range: [...] {x10E3/uL} (Normal) Range: 3.4-10.8 :51 Anti-TPO Antibody (50478) Comments: PATIENT WAS FASTINGPERFORMED BY: [employer] [facility] [id number] Thyroid Peroxidase (TPO) Ab 16 {IU/mL} (Normal) Range: 0-34 :51 TSH (52620) Comments: PATIENT WAS FASTINGPERFORMED BY: [employer] [facility] [id number] TSH 1.930 {uIU/mL} (Normal) Range: 0.450-4.500 :51 T4, FREE (THYROXINE) (04329) Comments: PATIENT WAS FASTINGPERFORMED BY: [employer] [facility] [id number] T4,Free(Direct) 0.89 ng/dL (Normal) Range: 0.82-1.77 :51 T3, FREE (TRIDOTHYRONINE) (41861) Comments: PATIENT WAS FASTINGPERFORMED BY: [employer] [facility] [id number] Triiodothyronine,Free,Serum 3.2 pg/mL (Normal) Range: 2.0-4.4 7-Ijj-210645:23 Urinalysis, Office (69094) UA - LEUKOCYTE ESTERASE Negative (Normal) UA - NITRITE Negative (Normal) URINE UROBILINGN CHRISTIAN TIMED 2 mg/dL (Normal) UA - PROTEIN Negative mg/dL (Normal) UA - PH 7.5 (Normal) UA - BLOOD Negative (Normal) UA - SPECIFIC GRAVITY 1.015 (Normal) UA - KETONES Negative mg/dL (Normal) UA - BILIRUBIN Negative (Normal) UA - GLUCOSE Negative (Normal) Plan of Care Name Dates Details Instructions BMI 39.0-39.9,adult : Follow up in 2 [...] II, controlled, with no complications Planned Observations LIPID PANEL (32188)Indication: Encounter for screening for lipid disorder On: 79-Wae-695039:06 Request URINALYSIS (09529)Indication: Hematuria On: :29 Request REVERSE TRIDOTHYRONINE (60550)Indication: Argelia's disease On: 84-Uge-065771:24 Request TSH (46614)Indication: Argelia's disease On: :23 Request T4, FREE (THYROXINE) (13232)Indication: Argelia's disease On: : Request T3, FREE (TRIDOTHYRONINE) (79913)Indication: Argelia's disease On: 80-Mlo-671423:23 Request D-Dimer (01984)Indication: Shortness of breath at rest On: 05-Utq-869613:03 Request TSH (65278)Indication: H/O Argelia thyroiditis On: Request URINALYSIS, W/ MICRO (09588)Indication: Diabetes mellitus type II, controlled, with no complications On: : Request METABOLIC PANEL, COMPREHENSIVE (94438)Indication: Diabetes mellitus type II, controlled, with no complications On: : Request LIPID PANEL (47232)Indication: Diabetes mellitus type II, controlled, with no complications On: : Request CBC with auto diff (96017)Indication: Diabetes mellitus type II, controlled, with no complications On: Request Planned Encounters Medical; Well Woman Exam with PAP - On: 22-Sep-2018 13:15 [facility] Suzy Willis DO, DO, Kathleen Planned Procedures SCREENING DIGITAL TOMOSYNTHESIS OF On: 07-Oct-2017 Intent BREAST (58767)By: Suzy Willis DO, DO, Kathleen MRA OF BRAIN (18249)By: Alba GRANADOS, On: 30-Sep-2017 Intent Suzy Eisenberg DO ELECTROCARDIOGRAM, COMPLETE (ECG) On: 30-Sep-2017 Intent (82396)By: Suzy Willis DO Comments: sinus jose no acute chg Suzy Willis DO Holter Monitor 24 hrsBy: Alba GRANADOS, On: 30-Sep-2017 Intent Suzy Eisenberg DO Aerosol Treatment (23236)By: Alba On: 08-Sep-2017 Suzy Vergara DO, DO, Kathleen Comments: less tight more a/e - no wheeze -pt rpeorts feeling looser Spirometry (45005)By: Alba GRANADOS, On: 08-Sep-2017 Intent Suzy Eisenberg DO Comments: restrivive pattern - good curve ELECTROCARDIOGRAM, COMPLETE (ECG) On: 20-Dec-2016 Intent (48999)By: Suzy Willis DO Comments: no acute chg Suzy Willis DO Spirometry (38457)By: Alba GRANADOS, On: 20-Dec-2016 Intent Suzy Eisenberg DO Comments: unremarkable Aerosol Treatment (94691)By: Alba On: 12-Mar-2016 Intent Suzy GRANADOS DO, Kathleen Comments: more air exhchg less noise not as tight Solu- Medrol Injection, 125mg On: 12-Mar-2016 Intent (J2930)By: Suzy Willis DO Comments: lot # [id number] exp 11/28 r hip Suzy Willis DO PNEUM VAC ADLT/IMUMNOSPR, SBC/INTRM On: 03-Feb-2016 Intent (25670)By: Yelena Kilpatrick MD MAMMOGRAM, SCREENING, BOTH BREAST On: 13-Nov-2015 Intent (48654)By: Yelena Kilpatrick MD CT - Chest (Without Contrast)By: On: 13-Nov-2015 Intent Yelena Kilpatrick MD Comments: LDCT 30 + pack years Radiology - Chest- PA and LatBy: On: 09-Oct-2015 Intent Suzy Willis DO, DO, Kathleen CT - Abdomen & PelvisBy: Rafiq On: 02-Jul-2014 Intent Yelena RIVERA Comments: pt refuse IV dye. IMMUNIZ ADMNIN, 1 VAC, SNGL/COMBO On: 17-Jun-2014 Intent (34545)By: Yelena Kilpatrick MD FLU VAC, SPLIT, >3 YEARS, INTRAMUSC On: 17-Jun-2014 Intent (98340)By: Yelena Kilpatrick MD Comments: Lot #:[id number] date:5-09-7975Qmfjya given:.5ml Route: IM Site given:left deltoid Given by: lucitaell Ultrasound - PelvisBy: Rafiq RIVERA, On: 17-Jun-2014 Intent Yelena Aldana EKG (24329)By: Yelena Kilpatrick MD On: 17-Jun-2014 Intent Comments: [...] from Extreme obesity) Encounters Office Visit On: 29-Aug-2018 14:16 Encounter Reason: [...] The symptoms have been associated with End: 3-Tha-2017 13:36 cough, nasal discharge/stuffy nose and sinus [...] patient is following up for include asthma (Dulera helped, has not restarted the singulair yet [...] Nutrition: balanced diet and supplemental vitamins. The co dical issues the patient is following up [...] now ), screening, Pap smear (January 2014 [place], [place] ) and screening, visual acuity (wears [...]
--- OUTSIDE RECORDS SUMMARY | 2018-12-03 06:14 | XMS RPT_ITS | Continuity of Care Document ---
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 30.0-100.0 Comments: Vitamin D deficiency has been defined by the [place] of[place]icine and an Endocrine Society practice guideline as alevel of serum 25-OH vitamin D less than 20 ng/mL (1,2).The Endocrine Society went on to further define vitamin Dinsufficiency as a level between 21 and 29 ng/mL (2).1. IOM ([place] of Medicine). 2010. Dietary reference intakes for calcium and D. [place]: The National Academies Press.2. Mouna MF, Isa NC, Lokesh BOJORQUEZ, et al. Evaluation, treatment, and prevention of vitamin D deficiency: an Endocrine Society clinical practice guideline. JCEM. 2010; 96(7):1911-30. 03-Xdx-859124:54 Basic Metabolic Profile (BMP) Comments: [facility] [place] [address] [place], [place], [address] GAP 7 (Normal) Range: 5-15 CO2 28.0 [...] A.D.A. criteria. :54 CBC W/Diff, Automated Comments: [facility] [address] [place], [place], [address] Absolute Lymph 1.36 {X10_3/ul} (Normal) Range: 0.83-4.51 [...] 4.2-5.4 WBC 6.8 K/mm3 (Normal) Range: 4.4-11.0 :36 Microscopic Examination Comments: PATIENT WAS FASTINGPERFORMED BY: Saberr García [facility] [id number] Bacteria None seen (Normal) Mucus Threads Present (Normal) Epithelial Cells (non renal) 0-10 {/hpf} (Normal) Range: 0 - 10 RBC 0-2 {/hpf} (Normal) Range: 0 - 2 WBC 0-5 {/hpf} (Normal) Range: 0 - 5 :36 Anti-TPO Antibody (39045) Comments: PATIENT WAS FASTINGPERFORMED BY: Saberr [facility] [id number] Thyroid Peroxidase (TPO) Ab 51 {IU/mL} (Abnormal) Range: 0-34 :36 TSH (62645) Comments: PATIENT WAS FASTINGPERFORMED BY: Saberr [facility] [id number] TSH 2.190 {uIU/mL} (Normal) Range: 0.450-4.500 :36 T4, FREE (THYROXINE) (79786) Comments: PATIENT WAS FASTINGPERFORMED BY: [employer] [facility] [place] [id number] T4,Free(Direct) 0.97 ng/dL (Normal) Range: 0.82-1.77 :36 T3, FREE (TRIDOTHYRONINE) (30258) Comments: PATIENT WAS FASTINGPERFORMED BY: [facility] Eunyer3374 García [facility] [place] [id number] Triiodothyronine,Free,Serum 2.7 pg/mL (Normal) Range: 2.0-4.4 :36 CALCIFIDIOL (83520) VIT D 25 Comments: PATIENT WAS FASTINGPERFORMED BY: [facility] Lvkucw9309 García [facility] [place] [id number] Vitamin D, 25-Hydroxy 25.1 ng/mL (Abnormal) Range: 30.0-100.0 Comments: Vitamin D deficiency has been defined by the [place] of[facility] and an Endocrine Society practice guideline as alevel of serum 25-OH vitamin D less than 20 ng/mL (1,2).The Endocrine Society went on to further define vitamin Dinsufficiency as a level between 21 and 29 ng/mL (2).1. IOM ([place] of Medicine). 2010. Dietary reference intakes for calcium and D. [place]: The National Academies Press.2. Mouna MF, Isa NC, Lokesh BOJORQUEZ, et al. Evaluation, treatment, and prevention of vitamin D deficiency: an Endocrine Society clinical practice guideline. JCEM. 2010; 96(7):1911-30. :36 URINALYSIS, W/ MICRO (25480) Comments: PATIENT WAS FASTINGPERFORMED BY: [facility] Xumfea5671 [facility] [place] [id number] Microscopic Examination See below: (Normal) Comments: Microscopic was indicated and was performed. Nitrite, Urine Negative (Normal) Urobilinogen,Semi-Qn 0.2 mg/dL (Normal) Range: 0.2-1.0 Bilirubin Negative (Normal) Occult Blood Trace (Abnormal) Ketones Negative (Normal) Glucose Negative (Normal) Protein Negative (Normal) WBC Esterase 1+ (Abnormal) Appearance Clear (Normal) Urine-Color Yellow (Normal) pH 6.5 (Normal) Range: 5.0-7.5 Specific Currie 1.012 (Normal) Range: 1.005-1.030 :36 MICROALBUMIN: CREATININE RATIO Comments: PATIENT WAS FASTINGPERFORMED BY: [facility] Burlington CountyOuiavz3314 [facility] [id number] (12325) AND (87783) Microalb/Creat Ratio <8.1 {mg/g_creat} (Normal) Range: 0.0-30.0 Microalbumin, Urine <3.0 ug/mL (Normal) Creatinine, Urine 37.1 mg/dL (Normal) :36 METABOLIC PANEL, COMPREHENSIVE Comments: PATIENT WAS FASTINGPERFORMED BY: [facility] Wsvhkg5024 [facility] [id number] (47326) ALT (SGPT) 17 [iU]/L (Normal) Range: 0-32 [...] mg/dL (Normal) Range: 65-99 :36 LIPID PANEL (10482) Comments: PATIENT WAS FASTINGPERFORMED BY: [facility] Luqvqt7670 [facility] [id number] LDL/HDL Ratio 2.1 {ratio_units} (Normal) Range: 0.0-3.2 [...] Range: 100-199 :36 CBC W/AUTO DIFF WBC (05311) Comments: PATIENT WAS FASTINGPERFORMED BY: [employer]6370 [facility] [id number] Immature Grans (Abs) 0.0 {x10E3/uL} (Normal) Range: [...] (Normal) Range: 3.4-10.8 :16 HgA1C , Office (10897) HgA1C , Office 5.6 % (Normal) Range: 4.6 - 7.1 :16 Blood Glucose , Office (81364) Blood Glucose , Office 94 (Normal) :14 IGP, Aptima HPV, Comments: Source.............Cervical;EndocervicalNo. of containers..01 CYTYC Thin Prep VialPATIENT NOT FASTINGPERFORMED BY: =G [facility] Wkepdcvhzd488 [facility] [id number] BY: WB L rfx 16/18,45 [facility] Olcadrfyvr650 [facility] [place] [id number] HPV Aptima Negative (Normal) Comments: This test [...] PRESENT.THIS SPECIMEN WAS RESCREENED PART OF OUR FAN ENGINE ENGINEER PROGRAM.Satisfactory for evaluati on. No endocervical component is identified.Z01.411Ruba Teddy CytotechnologistDianne Waite Rn Discharge ([facility]) 63-Kvr-37538:14 Thin prep Pap Comments: Source.............Cervical;EndocervicalNo. of containers..01 CYTYC Thin Prep VialPATIENT NOT FASTINGPERFORMED BY: =G [facility] [address] [id number] BY: WB L (59551) (no STD [facility] Katohojqqr071 [facility] [id number] Information: [id number] testing) Age Gdln ACOG Testing 30-65 (Normal) 5-Gty-482392:29 CALCIFIDIOL (76701) VIT D 25 Comments: PATIENT WAS FASTINGPERFORMED BY: [employer] [facility] [place] [id number] Vitamin D, 25-Hydroxy 18.4 ng/mL (Abnormal) Range: 30.0-100.0 Comments: Vitamin D deficiency has been defined by the [place] of[place]icine and an Endocrine Society practice guideline as alevel of serum 25-OH vitamin D less than 20 ng/mL (1,2).The Endocrine Society went on to further define vitamin Dinsufficiency as a level between 21 and 29 ng/mL (2).1. IOM ([place] of Medicine). 2010. Dietary reference intakes for calcium and D. [place]: The National Academies Press.2. Mouna MF, Isa NC, Lokesh BOJORQUEZ, et al. Evaluation, treatment, and prevention of vitamin D deficiency: an Endocrine Society clinical practice guideline. JCEM. 2010; 96(7):1911-30. :29 TSH (69734) Comments: PATIENT WAS FASTINGPERFORMED BY: [employer] Pwrynx1102 García RoadDublin [place] [id number] TSH 3.080 {uIU/mL} (Normal) Range: 0.450-4.500 4-Oic-905334:29 MICROALBUMIN: CREATININE RATIO Comments: PATIENT WAS FASTINGPERFORMED BY: [facility] Burlington CountyNxecet2161 [facility] [id number] (34849) AND (35096) Microalb/Creat Ratio <6.3 {mg/g_creat} (Normal) Range: 0.0-30.0 Microalbumin, Urine <3.0 ug/mL (Normal) Range: 0.0-17.0 Creatinine, Urine 47.5 mg/dL (Normal) Range: 15.0-278.0 :29 METABOLIC PANEL, Comments: PATIENT WAS FASTINGPERFORMED BY: [employer] Rygvvh1999 [facility] [id number] Information: [id number] COMPREHENSIVE (49127) ALT (SGPT) 23 [iU]/L (Normal) Range: 0-32 [...] mg/dL (Normal) Range: 65-99 :29 LIPID PANEL (60135) Comments: PATIENT WAS FASTINGPERFORMED BY: [facility] Laurps1849 [facility] [id number] LDL/HDL Ratio 2.7 {ratio_units} (Normal) Range: 0.0-3.2 [...] Cholesterol, Total 239 mg/dL (Abnormal) Range: 100-199 2-Eai-939175:09 HgA1C , Office (44545) HgA1C , Office 5.8 % (Normal) Range: 4.6 - 7.1 91-Vfa-125615:16 D-Dimer Quantitative (DVT/PE) Comments: [facility] Nlqjlkribc[address] [facility]. [place], [place], [id number] D-DIMER QUANT 0.39 {FEU/ug/m} (Normal) Range: 0.27-0.49 Comments: NORMAL D-Dimer level (<0.50) indicates no DVT or PE. :09 Blood Glucose , Office (06414) Blood Glucose , Office 101 (Normal) Comments: done in office non fasting :09 HgA1C , Office (69314) HgA1C , Office 5.9 % (Normal) Range: 4.6 - 7.1 :10 HgA1C , Office (43456) HgA1C , Office 6.6 % (Normal) Range: 4.6 - 7.1 :51 METABOLIC PANEL, COMPREHENSIVE Comments: PATIENT WAS FASTINGPERFORMED BY: [facility]CoL[facility] Burlington CountyWffswx9171 [facility] [id number] (48496) ALT (SGPT) 17 [iU]/L (Normal) Range: 0-32 [...] Glucose, Serum 133 mg/dL (Abnormal) Range: 65-99 11-Uhv-06371:51 LIPID PANEL (27694) Comments: PATIENT WAS FASTINGPERFORMED BY: [facility]CoL[facility] of Burlington CountyBupyeb8407 [facility] [id number] LDL/HDL Ratio 3.6 {ratio_units} (Abnormal) Range: 0.0-3.2 [...] Cholesterol, Total 217 mg/dL (Abnormal) Range: 100-199 19-Hap-69934:51 CBC W/AUTO DIFF WBC Comments: PATIENT WAS FASTINGPERFORMED BY: [facility]CoL[facility] Burlington CountyIgmnku5413 [facility] [id number] Information: [id number] (93671) Immature Grans (Abs) 0.0 {x10E3/uL} (Normal) Range: [...] {x10E3/uL} (Normal) Range: 3.4-10.8 :51 Anti-TPO Antibody (50791) Comments: PATIENT WAS FASTINGPERFORMED BY: [facility]Sche[facility]6370 [facility] [id number] Thyroid Peroxidase (TPO) Ab 16 {IU/mL} (Normal) Range: 0-34 :51 TSH (20939) Comments: PATIENT WAS FASTINGPERFORMED BY: [facility]inityL[facility] of Burlington CountySyxima8935 [facility] [id number] TSH 1.930 {uIU/mL} (Normal) Range: 0.450-4.500 :51 T4, FREE (THYROXINE) (36555) Comments: PATIENT WAS FASTINGPERFORMED BY: [facility]6370 [facility] [id number] T4,Free(Direct) 0.89 ng/dL (Normal) Range: 0.82-1.77 :51 T3, FREE (TRIDOTHYRONINE) (08817) Comments: PATIENT WAS FASTINGPERFORMED BY: [facility]6370 [facility] [id number] Triiodothyronine,Free,Serum 3.2 pg/mL (Normal) Range: 2.0-4.4 1-Efh-565441:23 Urinalysis, Office (50540) UA - LEUKOCYTE ESTERASE Negative (Normal) UA [...] of Care Name Dates Details Instructions BMI 36.0-36.9,adult : Follow up if no [...] II, controlled, with no complications Planned Observations URINALYSIS (79620)Indication: Hematuria On: :29 Request REVERSE TRIDOTHYRONINE (25346)Indication: Argelia's disease On: :24 Request TSH (17969)Indication: Argelia's disease On: : Request T4, FREE (THYROXINE) (77839)Indication: Argelia's disease On: : Request T3, FREE (TRIDOTHYRONINE) (85806)Indication: Argelia's disease On: : Request D-Dimer (38633)Indication: Shortness of breath at rest On: 33-Pcw-102053:03 Request TSH (17244)Indication: H/O Argelia thyroiditis On: : Request URINALYSIS, W/ MICRO (02909)Indication: Diabetes mellitus type II, controlled, with no complications On: :31 Request METABOLIC PANEL, COMPREHENSIVE (75052)Indication: Diabetes mellitus type II, controlled, with no complications On: : Request LIPID PANEL (71125)Indication: Diabetes mellitus type II, controlled, with no complications On: : Request CBC with auto diff (89446)Indication: Diabetes mellitus type II, controlled, with no complications On: :31 Request Planned Procedures SCREENING DIGITAL TOMOSYNTHESIS OF On: 07-Oct-2017 Intent BREAST (68380)By: Suzy Willis DO, DO, Kathleen MRA OF BRAIN (26706)By: Alba GRANADOS, On: 30-Sep-2017 Intent Suzy Eisenberg DO ELECTROCARDIOGRAM, COMPLETE (ECG) On: 30-Sep-2017 Intent (79567)By: Suzy Willis DO Comments: sinus jose no acute chg Suzy Willis DO Holter Monitor 24 hrsBy: Alba GRANADOS, On: 30-Sep-2017 Intent Suzy Eisenberg DO Aerosol Treatment (44506)By: Alba On: 08-Sep-2017 Intent Suzy GRANADOS DO, Kathleen Comments: less tight more a/e - no wheeze -pt rpeorts feeling looser Spirometry (24772)By: Alba GRANADOS, On: 08-Sep-2017 Intent Suzy Eisenberg DO Comments: restrivive pattern - good curve ELECTROCARDIOGRAM, COMPLETE (ECG) On: 20-Dec-2016 Intent (76226)By: Suzy Willis DO Comments: no acute chg Suzy Willis DO Spirometry (04092)By: Alba GRANADOS, On: 20-Dec-2016 Intent Suzy Eisenberg DO Comments: unremarkable Aerosol Treatment (09356)By: Alba On: 12-Mar-2016 Suzy Vergara DO, DO, Kathleen Comments: more air exhchg less noise not as tight Solu- Medrol Injection, 125mg On: 12-Mar-2016 Intent (J2930)By: Suzy Willis DO Comments: lot # [id number] exp 11/28 r hip Suzy Willis DO PNEUM VAC ADLT/IMUMNOSPR, SBC/INTRM On: 03-Feb-2016 Intent (71905)By: Yelena Kilpatrick MD MAMMOGRAM, SCREENING, BOTH BREAST On: 13-Nov-2015 Intent (11401)By: Yelena Kilpatrick MD CT - Chest (Without Contrast)By: On: 13-Nov-2015 Intent Yelena Kilpatrick MD Comments: LDCT 30 + pack years Radiology - Chest- PA and LatBy: On: 09-Oct-2015 Intent Suzy Willis DO, DO, Kathleen CT - Abdomen & PelvisBy: Rafiq On: 02-Jul-2014 Intent Yelena RIVERA Comments: pt refuse IV dye. IMMUNIZ ADMNIN, 1 VAC, SNGL/COMBO On: 17-Jun-2014 Intent (34412)By: Yelena Kilpatrick MD FLU VAC, SPLIT, >3 YEARS, INTRAMUSC On: 17-Jun-2014 Intent (20499)By: Yelena Kilpatrick MD Comments: Lot #:[id number] date:9-71-5338Jjsexf given:.5ml Route: IM Site given:left deltoid Given by: alec Ultrasound - PelvisBy: Rafiq RIVERA, On: 17-Jun-2014 Intent Yelena Aldana EKG (21846)By: Yelena Kilpatrick MD On: 17-Jun-2014 Intent Comments: see scanned document of test done to see results reviewed today with patient Planned Medications INJECTION, METHYLPREDNISOLONE SODIUM SUCCINATE, UP TO 125 MG Ordered: 12-Mar-2016 Pending Suzy Willis DO, DO, Kathleen Instructions Name Dates Details BMI 36.0-36.9,adult : How to access health [...] from Extreme obesity) Encounters Office Visit On: 22-Mar-2018 14:39 Encounter Reason: [...] Nutrition: balanced diet and supplemental vitamins. The ne dical issues the patient is following up [...] now ), screening, Pap smear (January 2014 [place], [place] ) and screening, visual acuity (wears glasses January 2014 ). Encounter Diagnosis: Fibromyalgia (Renamed from Diffuse myofascial pain syndrome), Asthma (493.11), Hypertension,benign(401.1), Dysuria, H/O Argelia thyroiditis, Morbid Obesity (Renamed from Extreme obesity), WWV V73.21, Abdominal Pain,LLQ (789.04), DISORDER, TOBACCO USE (305.1), NEED FOR PROPHYLACTIC VACCINATION AND INOCULATION AGAINST INFLUENZA (V04.81) [facility] Payers [employer]AN/Aubrey Hoover; laury guarantor
--- OUTSIDE RECORDS SUMMARY | 2018-12-03 06:15 | XMS RPT_ITS | Continuity of Care Document ---
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 0-10 {/hpf} (Normal) Range: 0 - 10 RBC 0-2 {/hpf} (Normal) Range: 0 - 2 WBC 0-5 {/hpf} (Normal) Range: 0 - 5 :36 Anti-TPO Antibody (11589) Comments: PATIENT WAS FASTINGPERFORMED BY: Nellix Mydish [facility] [id number] Thyroid Peroxidase (TPO) Ab 51 {IU/mL} (Abnormal) Range: 0-34 :36 TSH (93710) Comments: PATIENT WAS FASTINGPERFORMED BY: Nellix Ibptoz7681 [facility] [id number] TSH 2.190 {uIU/mL} (Normal) Range: 0.450-4.500 :36 T4, FREE (THYROXINE) (15341) Comments: PATIENT WAS FASTINGPERFORMED BY: Nellix Mydish [facility] [id number] T4,Free(Direct) 0.97 ng/dL (Normal) Range: 0.82-1.77 :36 T3, FREE (TRIDOTHYRONINE) (99518) Comments: PATIENT WAS FASTINGPERFORMED BY: Nellix Ljhgwf1649 [facility] [id number] Triiodothyronine,Free,Serum 2.7 pg/mL (Normal) Range: 2.0-4.4 :36 CALCIFIDIOL (70413) VIT D 25 Comments: PATIENT WAS FASTINGPERFORMED BY: Nellix Gzemea9936 [facility] [id number] Vitamin D, 25-Hydroxy 25.1 ng/mL (Abnormal) Range: 30.0-100.0 Comments: Vitamin D deficiency has been defined by the [place] [employer] and an Endocrine Society practice guideline as alevel of serum 25-OH vitamin D less than 20 ng/mL (1,2).The Endocrine Society went on to further define vitamin Dinsufficiency as a level between 21 and 29 ng/mL (2).1. IOM ([place] [employer]). 2010. Dietary reference intakes for calcium and D. [place]: The National Academies Press.2. Mouna MF, Isa [place], Lokesh BOJORQUEZ, et al. Evaluation, treatment, and prevention of vitamin D deficiency: an Endocrine Society clinical practice guideline. JCEM. 2010; 96(7):1911-30. :36 URINALYSIS, W/ MICRO (96096) Comments: PATIENT WAS FASTINGPERFORMED BY: Nellix Mydish [facility] [id number] Microscopic Examination See below: (Normal) Comments: Microscopic was indicated and was performed. Nitrite, Urine Negative (Normal) Urobilinogen,Semi-Qn 0.2 mg/dL (Normal) Range: 0.2-1.0 Bilirubin Negative (Normal) Occult Blood Trace (Abnormal) Ketones Negative (Normal) Glucose Negative (Normal) Protein Negative (Normal) WBC Esterase 1+ (Abnormal) Appearance Clear (Normal) Urine-Color Yellow (Normal) pH 6.5 (Normal) Range: 5.0-7.5 Specific Lena 1.012 (Normal) Range: 1.005-1.030 :36 MICROALBUMIN: CREATININE RATIO Comments: PATIENT WAS FASTINGPERFORMED BY: [facility]ixChrist HospitalGkyxrv4095 [facility] [id number] (16489) AND (20245) Microalb/Creat Ratio <8.1 {mg/g_creat} (Normal) Range: 0.0-30.0 Microalbumin, Urine <3.0 ug/mL (Normal) Creatinine, Urine 37.1 mg/dL (Normal) :36 METABOLIC PANEL, COMPREHENSIVE Comments: PATIENT WAS FASTINGPERFORMED BY: Epigami70 [facility] [id number] (70035) ALT (SGPT) 17 [iU]/L (Normal) Range: 0-32 [...] mg/dL (Normal) Range: 65-99 :36 LIPID PANEL (46994) Comments: PATIENT WAS FASTINGPERFORMED BY: [employer]6370 GarcíaUniverstar Science & TechnologyDosher [facility] Hospital [id number] LDL/HDL Ratio 2.1 {ratio_units} (Normal) Range: 0.0-3.2 Comments: LDL/HDL Ratio Men Women 1/2 Avg.Risk 1.0 1.5 Av g.Risk 3.6 3.2 2X Avg.Risk 6.2 5.0 3X Avg.Risk 8.0 6.1 LDL Cholesterol Calc 118 mg/dL (Abnormal) Range: 0-99 VLDL Cholesterol Tony 30 mg/dL (Normal) Range: 5-40 HDL Cholesterol 55 mg/dL (Normal) Triglycerides 150 mg/dL (Abnormal) Range: 0-149 Cholesterol, Total 203 mg/dL (Abnormal) Range: 100-199 40-Fmt-745489:36 CBC W/AUTO DIFF WBC (98601) Comments: PATIENT WAS FASTINGPERFORMED BY: LabCoChrist HospitalPubdio5402 [facility] [id number] Immature Grans (Abs) 0.0 {x10E3/uL} (Normal) Range: [...] (Normal) Range: 3.4-10.8 :16 HgA1C , Office (19279) HgA1C , Office 5.6 % (Normal) Range: 4.6 - 7.1 :16 Blood Glucose , Office (14349) Blood Glucose , Office 94 (Normal) :14 IGP, Aptima HPV, Comments: Source.............Cervical;EndocervicalNo. of containers..01 CYTYC Thin Prep VialPATIENT NOT FASTINGPERFORMED BY: =G [facility] Fvflmkhbah781 [facility] W [id number] BY: WB L rfx 16/18,45 [facility] Upepvzoeqf921 [facility] [place] [id number] HPV Aptima Negative (Normal) Comments: This test [...] PRESENT.THIS SPECIMEN WAS RESCREENED PART OF OUR MATHEMATICS INSTRUCTOR PROGRAM.Satisfactory for evaluati on. No endocervical component is identified.Z01.411Runaldo Espinal CytotechnologistDianne Waite Forging Die Sinker (ASCP) :14 Thin prep Pap Comments: Source.............Cervical;EndocervicalNo. of containers..01 CYTYC Thin Prep VialPATIENT NOT FASTINGPERFORMED BY: =G [facility] Plqunyhxqm254 [facility] [id number] BY: WB Felipe (01877) (no STD [facility] Zgvqpwakxh535 [facility] CentersandiAlleghen[facility] [id number] Information: [id number] testing) Age Gdln ACOG Testing 30-65 (Normal) 0-Foa-395814:29 CALCIFIDIOL (24442) VIT D 25 Comments: PATIENT WAS FASTINGPERFORMED BY: [facility] Edwlga4080 García RoadDublin [place] [id number] Vitamin D, 25-Hydroxy 18.4 ng/mL (Abnormal) Range: 30.0-100.0 Comments: Vitamin D deficiency has been defined by the [place] [employer] and an Endocrine Society practice guideline as alevel of serum 25-OH vitamin D less than 20 ng/mL (1,2).The Endocrine Society went on to further define vitamin Dinsufficiency as a level between 21 and 29 ng/mL (2).1. IOM ([place] [employer]). 2010. Dietary reference intakes for calcium and D. [place]: The National Academies Press.2. Mouna MF, Isa NC, Lokesh BOJORQUEZ, et al. Evaluation, treatment, and prevention of vitamin D deficiency: an Endocrine Society clinical practice guideline. JCEM. 2010; 96(7):1911-30. 9-Gaq-002077:29 TSH (23384) Comments: PATIENT WAS FASTINGPERFORMED BY: [facility] Jedytm3050 [address] [facility] CenterDublin [place] [id number] TSH 3.080 {uIU/mL} (Normal) Range: 0.450-4.500 8-Rie-768712:29 MICROALBUMIN: CREATININE RATIO Comments: PATIENT WAS FASTINGPERFORMED BY: [facility] Eborvc6374 García RoadDublin [place] [id number] (21144) AND (42041) Microalb/Creat Ratio <6.3 {mg/g_creat} (Normal) Range: 0.0-30.0 Microalbumin, Urine <3.0 ug/mL (Normal) Range: 0.0-17.0 Creatinine, Urine 47.5 mg/dL (Normal) Range: 15.0-278.0 :29 METABOLIC PANEL, Comments: PATIENT WAS FASTINGPERFORMED BY: [facility]ixUnion County General HospitalMgclqu5705 [facility] [id number] Information: [id number] COMPREHENSIVE (53009) ALT (SGPT) 23 [iU]/L (Normal) Range: 0-32 [...] mg/dL (Normal) Range: 65-99 :29 LIPID PANEL (36524) Comments: PATIENT WAS FASTINGPERFORMED BY: [facility]ixUnion County General HospitalCilyxk4514 [facility] [id number] LDL/HDL Ratio 2.7 {ratio_units} (Normal) Range: 0.0-3.2 [...] (Abnormal) Range: 100-199 :09 HgA1C , Office (56127) HgA1C , Office 5.8 % (Normal) Range: 4.6 - 7.1 :16 D-Dimer Quantitative (DVT/PE) Comments: [facility] Sndngaexvu1648 [facility]. [place], [place], [id number] D-DIMER QUANT 0.39 {FEU/ug/m} (Normal) Range: 0.27-0.49 Comments: NORMAL D-Dimer level (<0.50) indicates no DVT or PE. :09 Blood Glucose , Office (07231) Blood Glucose , Office 101 (Normal) Comments: done in office non fasting :09 HgA1C , Office (57603) HgA1C , Office 5.9 % (Normal) Range: 4.6 - 7.1 :10 HgA1C , Office (35980) HgA1C , Office 6.6 % (Normal) Range: 4.6 - 7.1 :51 METABOLIC PANEL, COMPREHENSIVE Comments: PATIENT WAS FASTINGPERFORMED BY: [facility] Qijkvh7106 [facility] [id number] (15156) ALT (SGPT) 17 [iU]/L (Normal) Range: 0-32 [...] Glucose, Serum 133 mg/dL (Abnormal) Range: 65-99 54-Fwx-02886:51 LIPID PANEL (35672) Comments: PATIENT WAS FASTINGPERFORMED BY: LabCoChrist HospitalFwqrej3064 [facility] [id number] LDL/HDL Ratio 3.6 {ratio_units} (Abnormal) Range: 0.0-3.2 [...] Cholesterol, Total 217 mg/dL (Abnormal) Range: 100-199 49-Bxz-28147:51 CBC W/AUTO DIFF WBC Comments: PATIENT WAS FASTINGPERFORMED BY: LabCoChrist HospitalNmynvq2613 [facility] [id number] Information: [id number] (67315) Immature Grans (Abs) 0.0 {x10E3/uL} (Normal) Range: [...] {x10E3/uL} (Normal) Range: 3.4-10.8 :51 Anti-TPO Antibody (44557) Comments: PATIENT WAS FASTINGPERFORMED BY: LabCoChrist HospitalDhqglv7525 [facility] [id number] Thyroid Peroxidase (TPO) Ab 16 {IU/mL} (Normal) Range: 0-34 :51 TSH (94186) Comments: PATIENT WAS FASTINGPERFORMED BY: [facility]6370 [facility] [id number] TSH 1.930 {uIU/mL} (Normal) Range: 0.450-4.500 :51 T4, FREE (THYROXINE) (30331) Comments: PATIENT WAS FASTINGPERFORMED BY: [facility] Center6370 [facility] [id number] T4,Free(Direct) 0.89 ng/dL (Normal) Range: 0.82-1.77 :51 T3, FREE (TRIDOTHYRONINE) (01404) Comments: PATIENT WAS FASTINGPERFORMED BY: [facility]6370 [facility] [id number] Triiodothyronine,Free,Serum 3.2 pg/mL (Normal) Range: 2.0-4.4 1-Jzj-190382:23 Urinalysis, Office (35338) UA - LEUKOCYTE ESTERASE Negative (Normal) UA [...] with no complications Planned Observations HPV automatic (10295)Indication: Screening for HPV (human papillomavirus) (Renamed from Encounter for screening for human papillomavirus (HPV)) On: 76-Dfq-080834:09 Request Thin prep Pap (26440) (no STD testing)Indication: Encounter for gynecological examination with abnormal finding On: 64-Svy-283416:24 Request URINALYSIS (45505)Indication: Hematuria On: :29 Request REVERSE TRIDOTHYRONINE (62427)Indication: Argelia's disease On: :24 Request TSH (47363)Indication: Argelia's disease On: 44-Rhp-208222:23 Request T4, FREE (THYROXINE) (86210)Indication: Argelia's disease On: :23 Request T3, FREE (TRIDOTHYRONINE) (25296)Indication: Argelia's disease On: 73-Nha-545338:23 Request D-Dimer (03290)Indication: Shortness of breath at rest On: 03-Pnt-822132:03 Request TSH (83112)Indication: H/O Argelia thyroiditis On: :31 Request URINALYSIS, W/ MICRO (87941)Indication: Diabetes mellitus type II, controlled, with no complications On: :31 Request METABOLIC PANEL, COMPREHENSIVE (17048)Indication: Diabetes mellitus type II, controlled, with no complications On: : Request LIPID PANEL (11051)Indication: Diabetes mellitus type II, controlled, with no complications On: : Request CBC with auto diff (27615)Indication: Diabetes mellitus type II, controlled, with no complications On: 7-Byj-820124:31 Request Planned Procedures ULTRASOUND OF PELVIC REGION On: 22-Sep-2018 Intent (03009)By: Suzy Willis DO, DO, Kathleen DEXA SCAN AXIAL SKELETON (88184)By: On: 22-Sep-2018 Intent Suzy Willis DO, DO, Suzy SCREENING DIGITAL TOMOSYNTHESIS OF On: 22-Sep-2018 Intent BREAST (57131)By: Suzy Willis DO, DO, Suzy SCREENING DIGITAL TOMOSYNTHESIS OF On: 07-Oct-2017 Intent BREAST (82891)By: Suzy Willis DO, DO, Kathleen MRA OF BRAIN (14287)By: Alba GRANADOS, On: 30-Sep-2017 Intent Suzy Eisenberg DO ELECTROCARDIOGRAM, COMPLETE (ECG) On: 30-Sep-2017 Intent (39458)By: Suzy Willis DO Comments: sinus jose no acute chg Suzy Willis DO Holter Monitor 24 hrsBy: Alba GRANADOS, On: 30-Sep-2017 Intent Suzy Eisenberg DO Aerosol Treatment (75256)By: Alba On: 08-Sep-2017 Intent Suzy GRANADOS DO, Kathleen Comments: less tight more a/e - no wheeze -pt rpeorts feeling looser Spirometry (32240)By: Alba GRANADOS, On: 08-Sep-2017 Intent Suzy Eisenberg DO Comments: restrivive pattern - good curve ELECTROCARDIOGRAM, COMPLETE (ECG) On: 20-Dec-2016 Intent (20561)By: Suzy Willis DO Comments: no acute chg Suzy Willis DO Spirometry (45688)By: Alba GRANADOS, On: 20-Dec-2016 Intent Suzy Eisenberg DO Comments: unremarkable Aerosol Treatment (61349)By: Alba On: 12-Mar-2016 Suzy Vergara DO, DO, Kathleen Comments: more air exhchg less noise not as tight Solu- Medrol Injection, 125mg On: 12-Mar-2016 Intent (J2930)By: Suzy Willis DO Comments: lot # [id number] exp 11/28 r hip Alba DO, Suzy PNEUM VAC ADLT/IMUMNOSPR, SBC/INTRM On: 03-Feb-2016 Intent (86443)By: Yelena Kilpatrick MD MAMMOGRAM, SCREENING, BOTH BREAST On: 13-Nov-2015 Intent (34155)By: Yelena Kilpatrick MD CT - Chest (Without Contrast)By: On: 13-Nov-2015 Intent Yelena Kilpatrick MD Comments: LDCT 30 + pack years Radiology - Chest- PA and LatBy: On: 09-Oct-2015 Intent Suzy Willis DO Alba DO, Suzy CT - Abdomen & PelvisBy: Rafiq On: 02-Jul-2014 Intent Yelena RIVERA Comments: pt refuse IV dye. IMMUNIZ ADMNIN, 1 VAC, SNGL/COMBO On: 17-Jun-2014 Intent (43616)By: Yelena Kilpatrick MD FLU VAC, SPLIT, >3 YEARS, INTRAMUSC On: 17-Jun-2014 Intent (98952)By: Yelena Kilpatrick MD Comments: Lot #:[id number] date:8-86-8325Chrurm given:.5ml Route: IM Site given:left deltoid Given by: alec Ultrasound - PelvisBy: Rafiq RIVERA, On: 17-Jun-2014 Intent Yelena Aldana EKG (97813)By: Yelena Kilpatrick MD On: 17-Jun-2014 Intent Comments: [...] now ), screening, Pap smear (January 2014 [place], [place] ) and screening, visual acuity (wears [...]
--- OUTSIDE RECORDS SUMMARY | 2018-12-03 06:16 | XMS RPT_ITS | Continuity of Care Document ---
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 (Normal) Range: 0 - 2 WBC 0-5 {/hpf} (Normal) Range: 0 - 5 :36 Anti-TPO Antibody (62971) Comments: PATIENT WAS FASTINGPERFORMED BY: [employer] [facility] [id number] Thyroid Peroxidase (TPO) Ab 51 {IU/mL} (Abnormal) Range: 0-34 :36 TSH (44355) Comments: PATIENT WAS FASTINGPERFORMED BY: [employer] Orsqor0894 [facility] [id number] TSH 2.190 {uIU/mL} (Normal) Range: 0.450-4.500 :36 T4, FREE (THYROXINE) (13723) Comments: PATIENT WAS FASTINGPERFORMED BY: [employer] [facility] [id number] T4,Free(Direct) 0.97 ng/dL (Normal) Range: 0.82-1.77 :36 T3, FREE (TRIDOTHYRONINE) (41160) Comments: PATIENT WAS FASTINGPERFORMED BY: [employer] Lrqqxe5456 [facility] [id number] Triiodothyronine,Free,Serum 2.7 pg/mL (Normal) Range: 2.0-4.4 :36 CALCIFIDIOL (49557) VIT D 25 Comments: PATIENT WAS FASTINGPERFORMED BY: [employer] Xikznt8520 [facility] [id number] Vitamin D, 25-Hydroxy 25.1 ng/mL (Abnormal) Range: 30.0-100.0 Comments: Vitamin D deficiency has been defined by the [place] [employer] and an Endocrine Society practice guideline as alevel of serum 25-OH vitamin D less than 20 ng/mL (1,2).The Endocrine Society went on to further define vitamin Dinsufficiency as a level between 21 and 29 ng/mL (2).1. IOM ([place] [employer]). 2010. Dietary reference intakes for calcium and D. [place]: The National Academies Press.2. Mouna MF, Isa [place], Lokesh BOJORQUEZ, et al. Evaluation, treatment, and prevention of vitamin D deficiency: an Endocrine Society clinical practice guideline. JCEM. 2010; 96(7):1911-30. :36 URINALYSIS, W/ MICRO (90657) Comments: PATIENT WAS FASTINGPERFORMED BY: [employer] [facility] [id number] Microscopic Examination See below: (Normal) Comments: Microscopic was indicated and was performed. Nitrite, Urine Negative (Normal) Urobilinogen,Semi-Qn 0.2 mg/dL (Normal) Range: 0.2-1.0 Bilirubin Negative (Normal) Occult Blood Trace (Abnormal) Ketones Negative (Normal) Glucose Negative (Normal) Protein Negative (Normal) WBC Esterase 1+ (Abnormal) Appearance Clear (Normal) Urine-Color Yellow (Normal) pH 6.5 (Normal) Range: 5.0-7.5 Specific [place] 1.012 (Normal) Range: 1.005-1.030 :36 MICROALBUMIN: CREATININE RATIO Comments: PATIENT WAS FASTINGPERFORMED BY: Project ColourjackKessler Institute for RehabilitationNwwvcl0440 [facility] [id number] (84914) AND (07738) Microalb/Creat Ratio <8.1 {mg/g_creat} (Normal) Range: 0.0-30.0 Microalbumin, Urine <3.0 ug/mL (Normal) Creatinine, Urine 37.1 mg/dL (Normal) :36 METABOLIC PANEL, COMPREHENSIVE Comments: PATIENT WAS FASTINGPERFORMED BY: [employer]70 [facility] [id number] (91367) ALT (SGPT) 17 [iU]/L (Normal) Range: 0-32 [...] mg/dL (Normal) Range: 65-99 :36 LIPID PANEL (32972) Comments: PATIENT WAS FASTINGPERFORMED BY: Caro Nut6370 GarcíaBinary Computer SolutionsFrye Regional Medical Center [id number] LDL/HDL Ratio 2.1 {ratio_units} (Normal) Range: 0.0-3.2 Comments: LDL/HDL Ratio Men Women 1/2 Avg.Risk 1.0 1.5 Av g.Risk 3.6 3.2 2X Avg.Risk 6.2 5.0 3X Avg.Risk 8.0 6.1 LDL Cholesterol Calc 118 mg/dL (Abnormal) Range: 0-99 VLDL Cholesterol Tony 30 mg/dL (Normal) Range: 5-40 HDL Cholesterol 55 mg/dL (Normal) Triglycerides 150 mg/dL (Abnormal) Range: 0-149 Cholesterol, Total 203 mg/dL (Abnormal) Range: 100-199 60-Oza-148355:36 CBC W/AUTO DIFF WBC (35652) Comments: PATIENT WAS FASTINGPERFORMED BY: LabCoKessler Institute for RehabilitationEoiydw5386 [facility] [id number] Immature Grans (Abs) 0.0 {x10E3/uL} (Normal) Range: [...] (Normal) Range: 3.4-10.8 :16 HgA1C , Office (43432) HgA1C , Office 5.6 % (Normal) Range: 4.6 - 7.1 :16 Blood Glucose , Office (58412) Blood Glucose , Office 94 (Normal) :14 IGP, Aptima HPV, Comments: Source.............Cervical;EndocervicalNo. of containers..01 CYTYC Thin Prep VialPATIENT NOT FASTINGPERFORMED BY: =G [facility] Qygvlaguyq528 [facility] W [id number] BY: WB L rfx 16/18,45 [facility] Mspsestchy901 [facility] [place] [id number] HPV Aptima Negative (Normal) Comments: This test [...] WAS RESCREENED PART OF OUR [employer] SERVER ON CALL PROGRAM.Satisfactory for evaluati on. No endocervical component is identified.Z01.411Runaldo Espinal CytotechnologistDianne Waite Reel And Rewinder Operator (ASCP) :14 Thin prep Pap Comments: Source.............Cervical;EndocervicalNo. of containers..01 CYTYC Thin Prep VialPATIENT NOT FASTINGPERFORMED BY: =G [facility] Wmlbeypvol047 [facility] [id number] BY: WB Felipe (16531) (no STD [facility] Quugfyunly876 [facility] CentersandiLifecare Hospital [facility]burg [id number] Information: [id number] testing) Age Gdln ACOG Testing 30-65 (Normal) 9-Giw-049820:29 CALCIFIDIOL (93434) VIT D 25 Comments: PATIENT WAS FASTINGPERFORMED BY: [facility] Awsqwb3992 García RoadDublin [place] [id number] Vitamin D, 25-Hydroxy 18.4 ng/mL (Abnormal) Range: 30.0-100.0 Comments: Vitamin D deficiency has been defined by the [place] [employer] and an Endocrine Society practice guideline as alevel of serum 25-OH vitamin D less than 20 ng/mL (1,2).The Endocrine Society went on to further define vitamin Dinsufficiency as a level between 21 and 29 ng/mL (2).1. IOM ([place] [employer]). 2010. Dietary reference intakes for calcium and D. [place]: The National Academies Press.2. Mouna MF, Isa NC, Lokesh BOJORQUEZ, et al. Evaluation, treatment, and prevention of vitamin D deficiency: an Endocrine Society clinical practice guideline. JCEM. 2010; 96(7):1911-30. 4-Yif-432577:29 TSH (26205) Comments: PATIENT WAS FASTINGPERFORMED BY: [facility] Fgovvb5967 García [facility] Reuther Psychiatric HospitalDublin [place] [id number] TSH 3.080 {uIU/mL} (Normal) Range: 0.450-4.500 8-Xoh-635829:29 MICROALBUMIN: CREATININE RATIO Comments: PATIENT WAS FASTINGPERFORMED BY: [facility] Ytxywk3800 García RoadDublin [place] [id number] (09126) AND (63047) Microalb/Creat Ratio <6.3 {mg/g_creat} (Normal) Range: 0.0-30.0 Microalbumin, Urine <3.0 ug/mL (Normal) Range: 0.0-17.0 Creatinine, Urine 47.5 mg/dL (Normal) Range: 15.0-278.0 :29 METABOLIC PANEL, Comments: PATIENT WAS FASTINGPERFORMED BY: Project ColourjackSanta Fe Indian HospitalGtztzj2609 [facility] [id number] Information: [id number] COMPREHENSIVE (21971) ALT (SGPT) 23 [iU]/L (Normal) Range: 0-32 [...] mg/dL (Normal) Range: 65-99 :29 LIPID PANEL (84333) Comments: PATIENT WAS FASTINGPERFORMED BY: Project ColourjackSanta Fe Indian HospitalDsmubp9348 [facility] [id number] LDL/HDL Ratio 2.7 {ratio_units} (Normal) Range: 0.0-3.2 [...] (Abnormal) Range: 100-199 :09 HgA1C , Office (42194) HgA1C , Office 5.8 % (Normal) Range: 4.6 - 7.1 :16 D-Dimer Quantitative (DVT/PE) Comments: [facility] [address] [facility] [place], [place], [id number] D-DIMER QUANT 0.39 {FEU/ug/m} (Normal) Range: 0.27-0.49 Comments: NORMAL D-Dimer level (<0.50) indicates no DVT or PE. :09 Blood Glucose , Office (46388) Blood Glucose , Office 101 (Normal) Comments: done in office non fasting :09 HgA1C , Office (18802) HgA1C , Office 5.9 % (Normal) Range: 4.6 - 7.1 :10 HgA1C , Office (49133) HgA1C , Office 6.6 % (Normal) Range: 4.6 - 7.1 :51 METABOLIC PANEL, COMPREHENSIVE Comments: PATIENT WAS FASTINGPERFORMED BY: [facility] Ekplno0800 [facility] [id number] (08422) ALT (SGPT) 17 [iU]/L (Normal) Range: 0-32 [...] Glucose, Serum 133 mg/dL (Abnormal) Range: 65-99 51-Njc-99084:51 LIPID PANEL (94970) Comments: PATIENT WAS FASTINGPERFORMED BY: LabCoKessler Institute for RehabilitationFfrptl2352 [facility] [id number] LDL/HDL Ratio 3.6 {ratio_units} (Abnormal) Range: 0.0-3.2 [...] Cholesterol, Total 217 mg/dL (Abnormal) Range: 100-199 72-Gne-28361:51 CBC W/AUTO DIFF WBC Comments: PATIENT WAS FASTINGPERFORMED BY: LabCoKessler Institute for RehabilitationKnrnke8655 [facility] [id number] Information: [id number] (98363) Immature Grans (Abs) 0.0 {x10E3/uL} (Normal) Range: [...] {x10E3/uL} (Normal) Range: 3.4-10.8 :51 Anti-TPO Antibody (09895) Comments: PATIENT WAS FASTINGPERFORMED BY: LabCoKessler Institute for RehabilitationWarext0690 [facility] [id number] Thyroid Peroxidase (TPO) Ab 16 {IU/mL} (Normal) Range: 0-34 :51 TSH (73742) Comments: PATIENT WAS FASTINGPERFORMED BY: [facility]6370 [facility] [id number] TSH 1.930 {uIU/mL} (Normal) Range: 0.450-4.500 :51 T4, FREE (THYROXINE) (61091) Comments: PATIENT WAS FASTINGPERFORMED BY: LabAspirus [facility]ween[facility] Hospital6370 [facility] [id number] T4,Free(Direct) 0.89 ng/dL (Normal) Range: 0.82-1.77 :51 T3, FREE (TRIDOTHYRONINE) (27931) Comments: PATIENT WAS FASTINGPERFORMED BY: [facility]6370 [facility] [id number] Triiodothyronine,Free,Serum 3.2 pg/mL (Normal) Range: 2.0-4.4 2-Ipy-707753:23 Urinalysis, Office (13798) UA - LEUKOCYTE ESTERASE Negative (Normal) UA [...] with no complications Planned Observations HPV automatic (79947)Indication: Screening for HPV (human papillomavirus) (Renamed from Encounter for screening for human papillomavirus (HPV)) On: 00-Pol-094381:09 Request Thin prep Pap (55218) (no STD testing)Indication: Encounter for gynecological examination with abnormal finding On: 64-Eoz-529197:24 Request URINALYSIS (80370)Indication: Hematuria On: :29 Request REVERSE TRIDOTHYRONINE (17048)Indication: Argelia's disease On: :24 Request TSH (83796)Indication: Argelia's disease On: 16-Xxl-586610:23 Request T4, FREE (THYROXINE) (92798)Indication: Argelia's disease On: :23 Request T3, FREE (TRIDOTHYRONINE) (97829)Indication: Argelia's disease On: 41-Ffh-707124:23 Request D-Dimer (05248)Indication: Shortness of breath at rest On: 31-Awr-307093:03 Request TSH (32908)Indication: H/O Argelia thyroiditis On: :31 Request URINALYSIS, W/ MICRO (03760)Indication: Diabetes mellitus type II, controlled, with no complications On: :31 Request METABOLIC PANEL, COMPREHENSIVE (28310)Indication: Diabetes mellitus type II, controlled, with no complications On: : Request LIPID PANEL (43174)Indication: Diabetes mellitus type II, controlled, with no complications On: : Request CBC with auto diff (19400)Indication: Diabetes mellitus type II, controlled, with no complications On: 1-Ndf-955506:31 Request Planned Procedures ULTRASOUND OF PELVIC REGION On: 22-Sep-2018 Intent (02463)By: Suzy Willis DO, DO, Kathleen DEXA SCAN AXIAL SKELETON (81775)By: On: 22-Sep-2018 Intent Suzy Willis DO, DO, Suzy SCREENING DIGITAL TOMOSYNTHESIS OF On: 22-Sep-2018 Intent BREAST (19778)By: Suzy Willis DO, DO, Suzy SCREENING DIGITAL TOMOSYNTHESIS OF On: 07-Oct-2017 Intent BREAST (91951)By: Suzy Willis DO, DO, Kathleen MRA OF BRAIN (44363)By: Alba GRANADOS, On: 30-Sep-2017 Intent Suzy Eisenberg DO ELECTROCARDIOGRAM, COMPLETE (ECG) On: 30-Sep-2017 Intent (63499)By: Suzy Willis DO Comments: sinus jose no acute chg Suzy Willis DO Holter Monitor 24 hrsBy: Alba GRANADOS, On: 30-Sep-2017 Intent Suzy Eisenberg DO Aerosol Treatment (57783)By: Alba On: 08-Sep-2017 Intent Suzy GRANADOS DO, Kathleen Comments: less tight more a/e - no wheeze -pt rpeorts feeling looser Spirometry (51880)By: Alba GRANADOS, On: 08-Sep-2017 Intent Suzy Eisenberg DO Comments: restrivive pattern - good curve ELECTROCARDIOGRAM, COMPLETE (ECG) On: 20-Dec-2016 Intent (21113)By: Suzy Willis DO Comments: no acute chg Suzy Willis DO Spirometry (39019)By: Alba GRANADOS, On: 20-Dec-2016 Intent Suzy Eisenberg DO Comments: unremarkable Aerosol Treatment (25634)By: Alba On: 12-Mar-2016 Suzy Vergara DO, DO, Kathleen Comments: more air exhchg less noise not as tight Solu- Medrol Injection, 125mg On: 12-Mar-2016 Intent (J2930)By: Suzy Willis DO Comments: lot # [id number] 11/28 r hip Alba DO, Suyz PNEUM VAC ADLT/IMUMNOSPR, SBC/INTRM On: 03-Feb-2016 Intent (46158)By: Yelena Kilpatrick MD MAMMOGRAM, SCREENING, BOTH BREAST On: 13-Nov-2015 Intent (26920)By: Yelena Kilpatrick MD CT - Chest (Without Contrast)By: On: 13-Nov-2015 Intent Yelena Kilpatrick MD Comments: LDCT 30 + pack years Radiology - Chest- PA and LatBy: On: 09-Oct-2015 Intent Suzy Willis DO Alba DO, Suzy CT - Abdomen & PelvisBy: Rafiq On: 02-Jul-2014 Intent Yelena RIVERA Comments: pt refuse IV dye. IMMUNIZ ADMNIN, 1 VAC, SNGL/COMBO On: 17-Jun-2014 Intent (14120)By: Yelena Kilpatrick MD FLU VAC, SPLIT, >3 YEARS, INTRAMUSC On: 17-Jun-2014 Intent (49238)By: Yelena Kilpatrick MD Comments: Lot #:[id number] date:1-13-6386Vqxygc given:.5ml Route: IM Site given:left deltoid Given by: alec Ultrasound - PelvisBy: Rafiq RIVERA, On: 17-Jun-2014 Intent Yelena Aldana EKG (99294)By: Yelena Kilpatrick MD On: 17-Jun-2014 Intent Comments: [...] now ), screening, Pap smear (January 2014 [place], [place] ) and screening, visual acuity (wears [...]
--- OUTSIDE RECORDS SUMMARY | 2018-12-03 06:17 | XMS RPT_ITS | Continuity of Care Document ---
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 IMPAIRED HOMEOSTASIS per A.D.A. criteria. 69-Njn-[id number]:54 CBC W/Diff, Automated Comments: [facility] Mufnhdrtyg2045 [address] [facility]. [place], [place], [id number] Absolute Lymph 1.36 {X10_3/ul} (Normal) Range: 0.83-4.51 [...] Microscopic Examination Comments: PATIENT WAS FASTINGPERFORMED BY: Zilico [facility] [id number] Bacteria None seen (Normal) Mucus Threads Present (Normal) Epithelial Cells (non renal) 0-10 {/hpf} (Normal) Range: 0 - 10 RBC 0-2 {/hpf} (Normal) Range: 0 - 2 WBC 0-5 {/hpf} (Normal) Range: 0 - 5 :36 Anti-TPO Antibody (08364) Comments: PATIENT WAS FASTINGPERFORMED BY: TVPage Chegongfang [facility] [id number] Thyroid Peroxidase (TPO) Ab 51 {IU/mL} (Abnormal) Range: 0-34 :36 TSH (68805) Comments: PATIENT WAS FASTINGPERFORMED BY: TVPageHampton Behavioral Health CenterZwdibh7251 [facility] [id number] TSH 2.190 {uIU/mL} (Normal) Range: 0.450-4.500 :36 T4, FREE (THYROXINE) (33994) Comments: PATIENT WAS FASTINGPERFORMED BY: TVPageHampton Behavioral Health CenterEfwpng8919 [facility] [id number] T4,Free(Direct) 0.97 ng/dL (Normal) Range: 0.82-1.77 :36 T3, FREE (TRIDOTHYRONINE) (44730) Comments: PATIENT WAS FASTINGPERFORMED BY: CB LabTr[facility]6370 [facility] [id number] Triiodothyronine,Free,Serum 2.7 pg/mL (Normal) Range: 2.0-4.4 :36 CALCIFIDIOL (83247) VIT D 25 Comments: PATIENT WAS FASTINGPERFORMED BY: [facility]6370 [facility] [id number] Vitamin D, 25-Hydroxy 25.1 ng/mL (Abnormal) Range: 30.0-100.0 Comments: Vitamin D deficiency has been defined by the [place] ofMedicine and an Endocrine Society practice guideline as alevel of serum 25-OH vitamin D less than 20 ng/mL (1,2).The Endocrine Society went on to further define vitamin Dinsufficiency as a level between 21 and 29 ng/mL (2).1. IOM ([place] of [employer]). 2010. Dietary reference intakes for calcium and D. [place]: The National Academies Press.2. Mouna MF, Isa FRYE, Lokesh BOJORQUEZ, et al. Evaluation, treatment, and prevention of vitamin D deficiency: an Endocrine Society clinical practice guideline. JCEM. 2010; 96(7):1911-30. :36 URINALYSIS, W/ MICRO (62923) Comments: PATIENT WAS FASTINGPERFORMED BY: SighterTr[facility] Hospital6370 [facility] [id number] Microscopic Examination See below: (Normal) Comments: Microscopic was indicated and was performed. Nitrite, Urine Negative (Normal) Urobilinogen,Semi-Qn 0.2 mg/dL (Normal) Range: 0.2-1.0 Bilirubin Negative (Normal) Occult Blood Trace (Abnormal) Ketones Negative (Normal) Glucose Negative (Normal) Protein Negative (Normal) WBC Esterase 1+ (Abnormal) Appearance Clear (Normal) Urine-Color Yellow (Normal) pH 6.5 (Normal) Range: 5.0-7.5 Specific Wolbach 1.012 (Normal) Range: 1.005-1.030 :36 MICROALBUMIN: CREATININE RATIO Comments: PATIENT WAS FASTINGPERFORMED BY: [facility]ighterTr[facility] Hospital6370 [facility] [id number] (94552) AND (34017) Microalb/Creat Ratio <8.1 {mg/g_creat} (Normal) Range: 0.0-30.0 Microalbumin, Urine <3.0 ug/mL (Normal) Creatinine, Urine 37.1 mg/dL (Normal) :36 METABOLIC PANEL, COMPREHENSIVE Comments: PATIENT WAS FASTINGPERFORMED BY: AMX70 [facility] [id number] (36544) ALT (SGPT) 17 [iU]/L (Normal) Range: 0-32 [...] mg/dL (Normal) Range: 65-99 :36 LIPID PANEL (81374) Comments: PATIENT WAS FASTINGPERFORMED BY: AVST6370 [facility] [id number] LDL/HDL Ratio 2.1 {ratio_units} (Normal) Range: 0.0-3.2 Comments: LDL/HDL Ratio Men Women 1/2 Avg.Risk 1.0 1.5 Av g.Risk 3.6 3.2 2X Avg.Risk 6.2 5.0 3X Avg.Risk 8.0 6.1 LDL Cholesterol Calc 118 mg/dL (Abnormal) Range: 0-99 VLDL Cholesterol Tony 30 mg/dL (Normal) Range: 5-40 HDL Cholesterol 55 mg/dL (Normal) Triglycerides 150 mg/dL (Abnormal) Range: 0-149 Cholesterol, Total 203 mg/dL (Abnormal) Range: 100-199 97-Aqq-489041:36 CBC W/AUTO DIFF WBC (76130) Comments: PATIENT WAS FASTINGPERFORMED BY: CB [facility] Lfbhld1464 [facility] [id number] Immature Grans (Abs) 0.0 {x10E3/uL} (Normal) Range: [...] (Normal) Range: 3.4-10.8 :16 HgA1C , Office (65267) HgA1C , Office 5.6 % (Normal) Range: 4.6 - 7.1 :16 Blood Glucose , Office (90932) Blood Glucose , Office 94 (Normal) :14 IGP, Aptima HPV, Comments: Source.............Cervical;EndocervicalNo. of containers..01 CYTYC Thin Prep VialPATIENT NOT FASTINGPERFORMED BY: =G [facility] [address] [id number] BY: WB L rfx 16/18,45 [facility] Dnlpgukbtq983 [facility] [place] [id number] HPV Aptima Negative (Normal) Comments: This test [...] PRESENT.THIS SPECIMEN WAS RESCREENED PART OF OUR BIOLOGICAL INSPECTOR PROGRAM.Satisfactory for evaluati on. No endocervical component is identified.Z01.411Ruba Teddy CytotechnologistDianne Waite Fitness Floor Attendant (ASCP) :14 Thin prep Pap Comments: Source.............Cervical;EndocervicalNo. of containers..01 CYTYC Thin Prep VialPATIENT NOT FASTINGPERFORMED BY: =G [facility] Uytyqvkqmk519 [facility] [id number] BY: WB Felipe (21365) (no STD [facility] Jzutgblqib336 [facility] [id number] Information: [id number] testing) Age Gdln ACOG Testing 30-65 (Normal) 2-Nae-423902:29 CALCIFIDIOL (71786) VIT D 25 Comments: PATIENT WAS FASTINGPERFORMED BY: [facility] Lynvlc3420 [address]ía RoadDublin [place] [id number] Vitamin D, 25-Hydroxy 18.4 ng/mL (Abnormal) Range: 30.0-100.0 Comments: Vitamin D deficiency has been defined by the [place] of[facility] and an Endocrine Society practice guideline as alevel of serum 25-OH vitamin D less than 20 ng/mL (1,2).The Endocrine Society went on to further define vitamin Dinsufficiency as a level between 21 and 29 ng/mL (2).1. IOM ([place] of Medicine). 2010. Dietary reference intakes for calcium and D. [place]: The National Academies Press.2. Mouna MF, Isa NC, Lokesh BOJORQUEZ, et al. Evaluation, treatment, and prevention of vitamin D deficiency: an Endocrine Society clinical practice guideline. JCEM. 2010; 96(7):1911-30. 7-Fin-783362:29 TSH (03807) Comments: PATIENT WAS FASTINGPERFORMED BY: [facility] Aghdab9298 [address]ía RoadDublin [place] [id number] TSH 3.080 {uIU/mL} (Normal) Range: 0.450-4.500 6-Ucs-016854:29 MICROALBUMIN: CREATININE RATIO Comments: PATIENT WAS FASTINGPERFORMED BY: [facility] Uvqeok2898 [address]ía RoadDublin [place] [id number] (05272) AND (82655) Microalb/Creat Ratio <6.3 {mg/g_creat} (Normal) Range: 0.0-30.0 Microalbumin, Urine <3.0 ug/mL (Normal) Range: 0.0-17.0 Creatinine, Urine 47.5 mg/dL (Normal) Range: 15.0-278.0 :29 METABOLIC PANEL, Comments: PATIENT WAS FASTINGPERFORMED BY: Tubis6370 [facility] [id number] Information: [id number] COMPREHENSIVE (17732) ALT (SGPT) 23 [iU]/L (Normal) Range: 0-32 [...] mg/dL (Normal) Range: 65-99 :29 LIPID PANEL (03153) Comments: PATIENT WAS FASTINGPERFORMED BY: AMX70 [facility] [id number] LDL/HDL Ratio 2.7 {ratio_units} (Normal) Range: 0.0-3.2 [...] (Abnormal) Range: 100-199 :09 HgA1C , Office (99001) HgA1C , Office 5.8 % (Normal) Range: 4.6 - 7.1 :16 D-Dimer Quantitative (DVT/PE) Comments: [facility] Et[address]ibbmv[address] [place], [address] D-DIMER QUANT 0.39 {FEU/ug/m} (Normal) Range: 0.27-0.49 Comments: NORMAL D-Dimer level (<0.50) indicates no DVT or PE. :09 Blood Glucose , Office (82233) Blood Glucose , Office 101 (Normal) Comments: done in office non fasting :09 HgA1C , Office (54927) HgA1C , Office 5.9 % (Normal) Range: 4.6 - 7.1 :10 HgA1C , Office (98902) HgA1C , Office 6.6 % (Normal) Range: 4.6 - 7.1 :51 METABOLIC PANEL, COMPREHENSIVE Comments: PATIENT WAS FASTINGPERFORMED BY: SOLIS [facility] Sqphft0718 [facility] [id number] (81283) ALT (SGPT) 17 [iU]/L (Normal) Range: 0-32 [...] Glucose, Serum 133 mg/dL (Abnormal) Range: 65-99 10-Bkk-49271:51 LIPID PANEL (18272) Comments: PATIENT WAS FASTINGPERFORMED BY: [facility]Tr[facility]6370 [facility] [id number] LDL/HDL Ratio 3.6 {ratio_units} (Abnormal) Range: 0.0-3.2 [...] DIFF WBC Comments: PATIENT WAS FASTINGPERFORMED BY: Superfeedr70 [facility] [id number] Information: [id number] (32356) Immature Grans (Abs) 0.0 {x10E3/uL} (Normal) Range: [...] {x10E3/uL} (Normal) Range: 3.4-10.8 :51 Anti-TPO Antibody (56580) Comments: PATIENT WAS FASTINGPERFORMED BY: Superfeedr70 [facility] [id number] Thyroid Peroxidase (TPO) Ab 16 {IU/mL} (Normal) Range: 0-34 :51 TSH (99392) Comments: PATIENT WAS FASTINGPERFORMED BY: [place] 1131270 [facility] [id number] TSH 1.930 {uIU/mL} (Normal) Range: 0.450-4.500 :51 T4, FREE (THYROXINE) (51843) Comments: PATIENT WAS FASTINGPERFORMED BY: [facility]6370 [facility] [id number] T4,Free(Direct) 0.89 ng/dL (Normal) Range: 0.82-1.77 :51 T3, FREE (TRIDOTHYRONINE) (13680) Comments: PATIENT WAS FASTINGPERFORMED BY: [place] 1131270 [facility] [id number] Triiodothyronine,Free,Serum 3.2 pg/mL (Normal) Range: 2.0-4.4 0-Swv-072102:23 Urinalysis, Office (81463) UA - LEUKOCYTE ESTERASE Negative (Normal) UA [...] controlled, with no complications Planned Observations URINALYSIS (80424)Indication: Hematuria On: :29 Request REVERSE TRIDOTHYRONINE (88930)Indication: Argelia's disease On: :24 Request TSH (86742)Indication: Argelia's disease On: : Request T4, FREE (THYROXINE) (61754)Indication: Argelia's disease On: : Request T3, FREE (TRIDOTHYRONINE) (37633)Indication: Argelia's disease On: : Request D-Dimer (15382)Indication: Shortness of breath at rest On: 01-Xiu-196133:03 Request TSH (87193)Indication: H/O Argelia thyroiditis On: : Request URINALYSIS, W/ MICRO (14819)Indication: Diabetes mellitus type II, controlled, with no complications On: : Request METABOLIC PANEL, COMPREHENSIVE (47083)Indication: Diabetes mellitus type II, controlled, with no complications On: : Request LIPID PANEL (44446)Indication: Diabetes mellitus type II, controlled, with no complications On: : Request CBC with auto diff (90198)Indication: Diabetes mellitus type II, controlled, with no complications On: :31 Request Planned Procedures SCREENING DIGITAL TOMOSYNTHESIS OF On: 07-Oct-2017 Intent BREAST (02386)By: Suzy Willis DO, DO, Kathleen MRA OF BRAIN (38938)By: Alba GRANADOS, On: 30-Sep-2017 Intent Suzy Eisenberg DO ELECTROCARDIOGRAM, COMPLETE (ECG) On: 30-Sep-2017 Intent (68749)By: Suzy Willis DO Comments: sinus jose no acute chg Suzy Willis DO Holter Monitor 24 hrsBy: Alba GRANADOS, On: 30-Sep-2017 Intent Suzy Eisenberg DO Aerosol Treatment (15205)By: Alba On: 08-Sep-2017 Intent Suzy GRANADOS DO, Kathleen Comments: less tight more a/e - no wheeze -pt rpeorts feeling looser Spirometry (51963)By: Alba GRANADOS, On: 08-Sep-2017 Intent Suzy Eisenberg DO Comments: restrivive pattern - good curve ELECTROCARDIOGRAM, COMPLETE (ECG) On: 20-Dec-2016 Intent (37821)By: Suzy Willis DO Comments: no acute chg Suzy Willis DO Spirometry (29953)By: Alba GRANADOS, On: 20-Dec-2016 Intent Suzy Eisenberg DO Comments: unremarkable Aerosol Treatment (66601)By: Alba On: 12-Mar-2016 Suzy Vergara DO, DO, Kathleen Comments: more air exhchg less noise not as tight Solu- Medrol Injection, 125mg On: 12-Mar-2016 Intent ([id number])By: Suzy Willis DO Comments: lot # [id number] exp 11/28 r hip Suzy Willis DO PNEUM VAC ADLT/IMUMNOSPR, SBC/INTRM On: 03-Feb-2016 Intent (56709)By: Yelena Kilpatrick MD MAMMOGRAM, SCREENING, BOTH BREAST On: 13-Nov-2015 Intent (75242)By: Yelena Kilpatrick MD CT - Chest (Without Contrast)By: On: 13-Nov-2015 Intent Yelena Kilpatrick MD Comments: LDCT 30 + pack years Radiology - Chest- PA and LatBy: On: 09-Oct-2015 Intent Suzy Willis DO, DO, Kathleen CT - Abdomen & PelvisBy: Rafiq On: 02-Jul-2014 Intent Yelena RIVERA Comments: pt refuse IV dye. IMMUNIZ ADMNIN, 1 VAC, SNGL/COMBO On: 17-Jun-2014 Intent (42357)By: Yelena Kilpatrick MD FLU VAC, SPLIT, >3 YEARS, INTRAMUSC On: 17-Jun-2014 Intent (57725)By: Yelena Kilpatrick MD Comments: Lot #:[id number] date:0-21-2502Qybjtt given:.5ml Route: IM Site given:left deltoid Given by: alec Ultrasound - PelvisBy: Rafiq RIVERA, On: 17-Jun-2014 Intent Yelena Aldana EKG (80076)By: Rafiq RIVERA, Yelena Aldana On: 17-Jun-2014 Intent Comments: see scanned document of test done to see results reviewed today with patient Planned Medications INJECTION, METHYLPREDNISOLONE SODIUM SUCCINATE, UP TO 125 MG Ordered: 12-Mar-2016 Pending Alba GRANADOS, Suzy Willis DO, Suzy Instructions Name Dates Details Former smoker : [...] Morbid Obesity (Renamed from Extreme obesity) Encounters Review On: 22-Sep-2018 12:05 Encounter Reason: Well Women Exam - The patient feels well with minor complaints (feel well overall but R heel hurts alot. flaca also had chronic diarrhea).Comprehensive Internal Medicine Office Visit On: 29-Aug-2018 14:16 [...] Nutrition: balanced diet and supplemental vitamins. The ar dical issues the patient is following up [...] now ), screening, Pap smear (January 2014 [place], [place] ) and screening, visual acuity (wears [...]
--- OUTSIDE RECORDS SUMMARY | 2018-12-03 06:17 | XMS RPT_ITS ---
:1960 External Reference #:[id number] Author Organization OHIP Care Team Providers Name Role Phone Suzy Willis DO Attending Unavailable Suzy Willis DO Referring Unavailable Suzy Willis DO Consulting Unavailable Suzy Willis Attending Unavailable Alba Suzy Referring Unavailable Alba Suzy Primary Care Unavailable Alba Suzy Primary Care Unavailable Lynette Cantor Attending Unavailable Suzy Willis Attending Unavailable Alba, Suzy Primary Care Unavailable Alba, Suzy Primary Care Unavailable Easton Hernandez Attending Unavailable Suzy Willis Attending Unavailable Shyanne Rhodes Attending Unavailable PROBLEMS PROBLEMS No Problem Records FoundPROCEDURES PROCEDURES No Procedure Records FoundRESULTS RESULTS 12 LEAD ELECTROCARDIOGRAM Observed: 10/04/2018 Status: F Source: [place] 1:42 PM [facility] REPOSITORY [facility] Cardiovascular [place] [address] 12 Lead EKG 10/02/182007 MR#: [id number] Acct: [id number] Name: CRYSTAL GRIFFITHS Rep #: [id number] : 1960 57 From: Ruben Chacon MD Attending Dr: Status: DEP ER Ordering Dr: Lynette Cantor MD Date: 10/02/18 Location: ED Sex: F C Admitted: Test Reason : REPEAT Blood Pressure : / mmHG Vent. Rate : 074 BPM Atrial Rate : 074 BPM P-R Int : 160 ms QRS Dur : 098 ms QT Int : 412 ms P-R-T Axes : 045 035 050 degrees QTc Int : 457 ms Normal sinus rhythm Normal ECG Confirmed by RUBEN CHACON MD ([id number]), pictures editor MARQUIS TINOCO ([id number]) on 10/04/2018 1:41:49 PM Referred By: Suzy Willis Confirmed By:RUBEN CHACON MD 10/04/18 1341 Date Ruben Chacon MD CC: Suzy Willis DO; Lynette Cantor MD Signed 12 LEAD ELECTROCARDIOGRAM Observed: 10/04/2018 Status: F Source: [place] 1:41 PM [facility] REPOSITORY [facility] Cardiovascular Services [address] [place] [address] 12 Lead EKG 10/02/18 1647 MR#: [id number] Acct: [id number] Name: CRYSTAL GRIFFITHS Rep #: [id number] : 1960 57 From: Ruben Chacon MD Attending Dr: Status: DEP ER Ordering Dr: Lynette Cantor MD Date: 10/02/18 Location: ED Sex: F C Admitted: Test Reason : HYPERTENSION Blood Pressure : / mmHG Vent. Rate : 087 BPM Atrial Rate : 087 BPM P-R Int : 162 ms QRS Dur : 096 ms QT Int : 358 ms P-R-T Axes : 030 036 056 degrees QTc Int : 430 ms Normal sinus rhythm Normal ECG Confirmed by RUBEN CHACON MD ([id number]), pictures editor MARQUIS TINOCO ([id number]) on 10/04/2018 1:41:31 PM Referred By: Suzy Willis Confirmed By:RUBEN CHACON MD 10/04/18 1341 Date Ruben Chacon MD CC: Suzy Willis DO; Lynette Cantor MD Signed EMERGENCY DEPARTMENT Observed: 10/02/2018 Status: F Source: [place] SUMMARY 9:22 PM [facility] REPOSITORY [facility] Medical Records Department [address] [place] [address] Emergency Department Summary 10/02/18 1635 MR#: [id number] Acct: [id number] Name: CRYSTAL GRIFFITHS Rep #: [id number] : 1960 57 From: Lynette Cantor MD PCP: Suzy Willis DO Status: DEP ER - ER Visit Summary Date of Service: 10/02/18 Chief Complaint: Dizziness History of Present Illness: The patient is a 57 F patient presents for dizziness since this morning, now complaining of high blood pressure, bilateral arm pain and tingling, and generalized achiness. Patient states since this morning she is felt dizzy, which is worse when she stands. 2 hours ago she started feeling worse and took her blood pressure, noting it was 197/102. Both arms felt achy, mainly in the elbow region, and also she had tingling from the shoulders down. This lasted approximately 1 minute. It happened a total of 3 times. She has diffuse myalgias and arthralgias, nausea, headache, generalized weakness. Denies fever, vision changes, chest pain or shortness of breath. Patient has history of diabetes, asthma, hypertension, mitral valve prolapse, and fibromyalgia. She is on atenolol and metformin. Denies alcohol or tobacco use. Physical Examination: Vital signs: afebrile, hypertensive at 168/92 no hypoxia on room air General: well nourished, well developed, in no distress Skin: warm, dry, no rash, no pallor HEENT: normocephalic and atraumatic; PERRL, EOMI, moist mucous membranes, neck is supple, nontender, full active range of motion, no lymphadenopathy or meningismus Cardiovascular: regular rate and rhythm without murmurs, no peripheral edema, 2+ pulses all distal extremities Respiratory: No increased work of breathing, lungs are clear to auscultation bilaterally, no rales, rhonchi or wheezing Abdominal: Abdomen is soft, nontender with normoactive bowel sounds, no guarding or rebound, no masses MSK: Moves all extremities, no deformities, normal strength Neuro: Awake and alert, oriented 4. No facial droop, sensation and motor function intact and symmetric, no nystagmus Test Results: Abnormal Lab Results WBC RBC Hgb Hct MCV MCH MCHC RDW RDW Differential Plt Count MPV Sodium Potassium Chloride Carbon Dioxide Anion Gap BUN Creatinine Clinical Impression(s) from Imaging Studies Brain CT 10/02/18 16:34 IMPRESSION: Normal unenhanced CT scan of the brain. There is no interval change. Electronically Signed: Silverio Bright DO at 17:32 EST Tel [phone], Service support , Chest X-Ray 10/02/18 17:19 IMPRESSION: No acute cardiopulmonary disease or interval change. Electronically Signed: Silverio Bright DO at 17:39 EST Tel [phone], Service support , Medications Given Discontinued Medications Sodium Chloride () 1,000 mls @ 1,000 mls/hr IV .Q1H ONE Stop: 10/02/18 17:33 Last Admin: 10/02/18 17:01 Dose: 1,000 mls/hr Emergency Department Course and Treatment: Patient presents for multiple complaints, mainly complaining of her high blood pressure. However her blood pressure is most likely reactive to her other complaints rather than the cause. Because patient is complaining of dizziness, headache and the bilateral arm tingling, head CT was performed. Patient is also having arm pain and myalgias/arthralgias, nausea, and shivering. This sounds potentially prodromal to an infectious process. Patient was given IV fluids for hydration, and is complaining that she is very thirsty. Blood glucose was checked and was within normal limits. Labs showed no leukocytosis or anemia. No electrolyte derangements. Very minimal elevation in the transaminases, not even 50% greater than normal upper limit. Troponin negative. EKG showed a sinus rhythm with no ischemic changes. Chest x-ray showed no pneumonia. CT of the head showed no mass or intracranial hemorrhage. Patient's blood pressure improved without any medical intervention. On reevaluation patient still was feeling achy and still felt dizzy, describing it is lightheadedness, and stating she has had vertigo in the past but this does not feel like spinning sensation or disequilibrium. Because patient is having the dizziness with the bilateral arm pain, is female and diabetic, and thus may have atypical presentation of ACS, EKG and troponin will be repeated, as patient's heart score is 3. Patient was ambulated and was able to walk without any difficulty or worsening of her symptoms. EKG showed normal sinus rhythm with no ischemia or ectopy, unchanged from initial one. Repeat troponin was negative. Patient was reevaluated and still feels slightly dizzy and has diffuse achiness, but otherwise feels well enough to go home. Her blood pressure is 136/74 at time of my evaluation. Patient asked if she should take an additional half an atenolol when she gets home, and I told her not to, as we do not want her blood pressure to go too low. We discussed patient's constellation of symptoms again, and since she is having diffuse myalgias, had episode of shivering and inability to get warm prior to coming in, has the vague dizziness, and general malaise, her symptoms do sound concerning for prodrome to infection. No acute life-threatening process was noted that would require admission or further imaging or testing. Patient was agreeable with discharge home and will return if any worsening of her condition. Treatment Plan: [] Disposition: [] Impression: General malaise, established hypertension, diffuse myalgias, dizziness This note was generated with Scoop[employer]ion dictation software. It may contain incorrect words, spelling, and punctuation that were not noted in review of the chart prior to signing ED Disposition - Plan for ED Patient: Disposition: Home or Assisted Living Chief Complaint: Hypertension Instructions: ED Dizziness UKO, ED HTN Established, ED Muscle Aching Referrals: Suzy Willis, DO [Primary Care Provider] - 1-2 Days if not improving Additional Instructions: Drink plenty of fluids to stay hydrated. Do not take additional blood pressure medication tonight, as we do not want your blood pressure to drop too low. Follow-up with your doctor if you continue to feel achy and dizzy. If you have any worsening of your condition or any new concerning symptoms, please return immediately to the emergency department for another evaluation. What to do if you have Problems For any increased pain, shortness of breath, bleeding, nausea or vomiting, chest pain, or any unexpected problems, contact your Primary Care Provider. Call [facility] ([phone]) or report to the closest Emergency Room. Call 911 if necessary. 10/02/182121 <Electronically signed by Lynette Cantor MD> Date Lynette Cantor MD Cosigner Signature (If Indicated): Date CC: Suzy Willis DO DISCHARGE INSTRUCTION Observed: 10/02/2018 Status: F Source: [place] 9:10 PM [facility] REPOSITORY [facility] Medical Records Department [address] [place] [address] Discharge Instruction 10/02/182056 MR#: [id number] Acct: [id number] Name: CRYSTAL GRIFFITHS Rep #: [id number] : 1960 57 From: Lynette Cantor MD PCP: Suzy Willis DO Status: DEP ER ED Disposition - Plan for ED Patient: Disposition: Home or Assisted Living Chief Complaint: Hypertension Instructions: ED HTN Established, ED Muscle Aching, ED Dizziness UKO Referrals: Suzy Willis DO [Primary Care Provider] - 1-2 Days if not improving Additional Instructions: Drink plenty of fluids to stay hydrated. Do not take additional blood pressure medication tonight, as we do not want your blood pressure to drop too low. Follow-up with your doctor if you continue to feel achy and dizzy. If you have any worsening of your condition or any new concerning symptoms, please return immediately to the emergency department for another evaluation. What to do if you have Problems For any increased pain, shortness of breath, bleeding, nausea or vomiting, chest pain, or any unexpected problems, contact your Primary Care Provider. Call [facility] ([phone]) or report to the closest Emergency Room. Call 911 if necessary. 10/02/180 <Electronically signed by Lynette Cantor MD> Date Lynette Cantor MD Cosigner Signature (If Indicated): Date CC: Suzykenroy Willis DO TROPONIN-I Collected: 10/02/2018 Status: F Source: [place] 7:55 PM [facility] REPOSITORY Order Comment: 'TROP' Serial specimen #1, #2 or #3: 2 TYPE CODE TESTS RESULT OUT OF RANGE REFERENCE UNITS LAB L501.4010 <0.045 ng/mL Normal < 0.015 TROPONIN-I Result Comment: TROPONIN-I EXPECTED VALUES <0.045 Negative 0.045 - 0.590 Consistent with Cardiac Damage > OR = 0.600 Critical Value Not every elevated troponin is indicative of ND. These values should be used with clinical judgement in examining the patient's clinical picture for diagnosis. To establish a diagnosis of ND versus myocardial injury, there must be a demonstrated rise and/or fall in the troponin values, in addition to ischemic symptoms, EKG changes, new regional wall motion abnormality, and/or angiographical evidence. PLEASE NOTE: REFERENCE RANGES EDITED 18 Performed By: #### L501.4010 #### [facility] [address] [place], [address] BEDSIDE GLUCOSE Collected: 10/02/2018 Status: F Source: [place] 5:10 PM [facility] REPOSIT[facility] TYPE CODE TESTS RESULT OUT OF RANGE REFERENCE UNITS LAB L501.080 70-110 mg/dL Normal BEDSIDE GLU 104 Result Comment: MANAGEMENT OF PATIENT CARE PER NURSING PROTOCOL Performed By: #### L501.080 #### [facility] Point of Care [address] [place], [place] [address] CBC-COMPLETE BLOOD CNT Collected: 10/02/2018 Status: F Source: [place] NO DIFF 5:04 PM [facility] REPOSITORY TYPE CODE TESTS RESULT OUT OF RANGE REFERENCE UNITS LAB L100.1000 4.4-11.0 K/mm3 Normal WBC 9.1 LAB L100.1200 4.2-5.4 M/mm3 Normal RBC 4.28 LAB L100.1300 12.0-15.0 g/dl Normal HGB 12.6 LAB L100.1400 37-47 % Normal HCT 39.0 LAB L100.1500 81-99 fL Normal MCV 91.1 LAB L100.1600 27.0-32.0 pg Normal MCH 29.4 LAB L100.1700 32-36 g/gl Normal MCHC 32.3 LAB L100.1810 11.6-14.6 % Normal RDW CV 13.2 LAB L100.1820 35.1-43.9 fl Normal RDW SD 43.5 LAB L100.1900 150-450 K/mm3 Normal PLT 189 LAB L100.2000 6.2-12.0 fl Normal MPV 10.8 Performed By: #### L100.0500 #### [facility] [address] [place], [place], [address] URINALYSIS, COMPLETE Collected: 10/02/2018 Status: F Source: [place] 5:04 PM [facility] REPOSITORY Order Comment: Order Date: 10/02/18 How was Urine Obtained? CLEAN CATCH TYPE CODE TESTS RESULT OUT OF RANGE REFERENCE UNITS LAB L400.3000 Yellow COLOR Normal Yellow LAB L400.3050 Clear Normal CLARITY Clear LAB L400.3200 Normal mg/dl Normal GLUCOSE, UR Normal LAB L400.3300 Negative mg/dL Normal BILIRUBIN URINE Negative LAB L400.3400 Negative mg/dl Normal KETONE UR Negative LAB L400.3465 1.002-1.030 Normal SP.GR. DIPSTX 1.010 LAB L400.3550 5.0 - 8.0 pH UR Normal 8.0 LAB L400.3600 Negative mg/dl PROT Normal DIPSTX Negative LAB L400.3700 Normal mg/dl Normal UROBILI Normal LAB L400.3750 Negative Normal NITRITE UR Negative LAB L400.3780 Negative /ul Normal OCCULT BLOOD-UR Negative LAB L400.3800 Negative /ul LEUK Normal ESTERASE Negative LAB L400.4050 0-5 /hpf WBC 0 Normal SEEN LAB L400.4100 0-5 /hpf 0 Normal RBC-UA SEEN LAB L400.4150 5-10 /hpf SQUAM Normal EPI 0-5 SEEN LAB L400.4300 None Seen /hpf 0 Normal BACTERIA SEEN LAB L400.4350 <or=2+ /hpf 0 Normal MUCUS, URINE SEEN Performed By: #### L400.0001 #### [facility] [address] [place], [place], [address] COMPREHENSIVE METABOLIC Collected: 10/02/2018 Status: F Source: [facility] 5:04 PM [facility]POS[facility] TYPE CODE TESTS RESULT OUT OF RANGE REFERENCE UNITS LAB L501.0100 74-106 mg/dL Normal GLU 104 Result Comment: Fasting Glucose result from 100 to 125 mg/dL suggests IMPAIRED HOMEOSTASIS per A.D.A. criteria. Please note revised GLUCOSE reference range effective 2017. LAB L501.1000 7-18 mg/dL Normal BUN 10 LAB L501.1100 0.55-1.02 mg/dL Normal CREAT,SERUM 0.72 Result Comment: The validity of the calculated GFR AND GFRAA in patients over 70 years has not been determined. Clinical correlation is essential. LAB L501.1110 >60 mL/min Normal EST GFR 88 Result Comment: Non- GFR Calc LAB L501.1115 >60 mL/min Normal EST GFR - AA 106 Result Comment: GFR Calc LAB L501.1255 ml/min Normal Estimated CRCL 63.48 LAB L501.1300 10-20 RATIO Normal BUN/CRE 13.9 LAB L501.1500 6.4-8. g/dL Normal 2 T PROT 7.2 LAB L501.1800 3.2-5. g/dL Normal 0 ALB 3.9 LAB L501.1950 2.2-4. g/dL Normal 2 GLOB 3.3 LAB L501.2000 0.9-2. RATIO Normal 4 A/G 1.2 LAB L501.2200 8.5-10 mg/dL Normal .1 CA 9.1 LAB L501.4100 15-37 U/L High AST 55 LAB L501.4305 45-117 U/L High ALK P 139 LAB L501.4405 13-56 U/L High ALT 63 LAB L501.4600 0.20-1 mg/dL Normal .00 T BILI 0.50 LAB L501.5300 136-14 mmol/L Normal 5 NA 140 LAB L501.5600 3.5-5. mmol/L Normal 1 K 3.5 LAB L501.5900 98-107 mmol/L Normal CL 103 LAB L501.6100 21.0-3 mmol/L Normal 2.0 CO2 27.0 LAB L501.6200 5-15 Normal GAP 10 Performed By: #### L500.4050, L501.4010 #### [facility] [address] [facility] [place], [address] TROPONIN-I Collected: 10/02/2018 Status: F Source: [place] 5:04 PM [facility] REPOSIT[facility] TYPE CODE TESTS RESULT OUT OF RANGE REFERENCE UNITS LAB L501.4010 <0.045 ng/mL Normal < 0.015 TROPONIN-I Result Comment: TROPONIN-I EXPECTED VALUES <0.045 Negative 0.045 - 0.590 Consistent with Cardiac Damage > OR = 0.600 Critical Value Not every elevated troponin is indicative of ND. These values should be used with clinical judgement in examining the patient's clinical picture for diagnosis. To establish a diagnosis of ND versus myocardial injury, there must be a demonstrated rise and/or fall in the troponin values, in addition to ischemic symptoms, EKG changes, new regional wall motion abnormality, and/or angiographical evidence. PLEASE NOTE: REFERENCE RANGES EDITED 18 Performed By: #### L500.4050, L501.4010 #### [facility] [address] [place], [place], [address] BRAIN/HEAD WITHOUT Observed: 10/02/2018 Status: F Source: [place] CONTRAST 4:35 PM [facility] REPOSITORY [facility] Imaging Services [address] [facility] [place] [address] Brain/Head without Contrast MR#: [id number] Acct: [id number] Name: CRYSTAL GRIFFITHS Rep #: [id number] : 1960 F 57 From: Silverio Bright DO PCP: Suzy Willis DO Status: REG ER Study: Brain/Head without Contrast Date of Exam: 10/02/18 Exam# [id number] Ordering Dr: Lynette Cantor MD STUDY: CT BRAIN WITHOUT CONTRAST REASON FOR EXAM: Female, 57 years old. Dizziness. RADIATION DOSAGE (If Supplied By Facility): CTDIvol = ( 44.99 ) mGy, DLP = ( 711.75 ) mGycm TECHNIQUE: Transaxial CT imaging of the brain was performed without administration of intravenous contrast material. Individualized dose optimization techniques were used for this CT. COMPARISON: December 28, 2016. FINDINGS: Normal soft tissue structures. Normal calvarium. Normal size ventricles and extra-axial spaces for the patient's age. Normal white matter tracts of the cerebral hemispheres. Normal basal ganglia and thalami. Normal brainstem. Normal cerebellum. There is no intracranial hemorrhage. There are no findings of an acute ischemic infarction. Normal visualized paranasal sinuses. CT/Brain/Head without Contrast IMPRESSION: Normal unenhanced CT scan of the brain. There is no interval change. Electronically Signed: Silverio Bright DO at 17:32 EST Tel [phone], Service support , CC: Suzy Willis DO; Lynette Cantor MD Ear Pull Machine Operator: Signed CHEST PA AND LATERAL Observed: 10/02/2018 Status: F Source: [place] 4:35 PM [facility] REPOSITORY [facility] Imaging Services [address] [place] [address] Chest PA and Lateral MR#: [id number] Acct: [id number] Name: CRYSTAL GRIFFITHS Rep #: [id number] : 1960 F 57 From: Silverio Bright DO PCP: Suzy Willis DO Status: REG ER Study: Chest PA and Lateral Date of Exam: 10/02/18 Exam# [id number] Ordering Dr: Lynette Cantor MD STUDY: X-RAY CHEST REASON FOR EXAM: Female, 57 years old. Bilateral arm pain. TECHNIQUE: PA and lateral views of the chest. COMPARISON: Chest, October 09, 2015. FINDINGS: Aggregate, The lungs are clear and expanded. There is no demonstrated pleural abnormality. Normal size heart. Normal mediastinum and alfredo. Normal visualized pulmonary arteries. Normal visualized aortic arch and descending thoracic aorta. Normal visualized thoracic spine. Normal visualized ribs, clavicles, and shoulders. There is no demonstrated abnormality of the visualized soft tissue structures of the upper abdomen. RAD/Chest PA and Lateral IMPRESSION: No acute cardiopulmonary disease or interval change. Electronically Signed: Silverio Bright DO at 17:39 EST Tel [phone], Service support , CC: Suzy Willis DO; Lynette Cantor MD Ear Pull Machine Operator: Signed TRANSVAGINAL Observed: 09/28/2018 Status: F Source: [place] NON- 1:43 PM [facility] REPOSITORY [facility] Imaging Services [address] [place] [address] Transvaginal Non- MR#: [id number] Acct: [id number] Name: CRYSTAL GRIFFITHS Rep #: [id number] : 1960 F 57 From: Asaf Brar MD PCP: Suzy Willis DO Status: REG CLI Study: Transvaginal Non- Date of Exam: 09/28/18 Exam# [id number] Ordering Dr: Suzy Willis DO STUDY: ULTRASOUND OF THE FEMALE PELVIS - COMPLETE REASON FOR EXAM: Female, 57 years old. Pelvic pain. LMP: Postmenopausal. TECHNIQUE: Transabdominal and transvaginal. TECHNICAL QUALITY: Adequate. COMPARISON: 06/24/2014. FINDINGS: The uterus is anteverted and is in a midline position. The uterus measures 7.0 x 3.9 x 2.7 cm. Nabothian cyst in the uterine cervix. The endometrium measures 2.4 mm in thickness, and is hyperechoic. There is no demonstrated endometrial mass. There is no demonstrated myometrial mass. I.U.D. - The patient does not have an I.U.D. The right ovary is not visualized. The left ovary is visualized. The left ovary measures 1.9 x 1.8 x 1.4 cm. There is no left ovarian cyst or ovarian mass. There is no visualized left adnexal mass or complex lesion. There is normal arterial and normal venous vascularity. There is no fluid in the cul-de-sac. The pre void volume of the bladder was 355 ml. US/Transvaginal Non- IMPRESSION: 1. Nabothian cysts in the uterine cervix. 2. Normal ultrasound the uterus. 3. Nonvisualization of the right ovary. 4. Normal ultrasound of the left ovary. Electronically Signed: Asaf Brar MD at 14:15 EST , Service support , CC: Suzy Willis DO Ear Pull Machine Operator: Signed PELVIC (NON ) Observed: 09/28/2018 Status: F Source: [place] 1:17 PM [facility] REPOS[facility]ORY [facility] Imaging Services [address] [place] [address] Pelvic (Non ) MR#: [id number] Acct: [id number] Name: CRYSTAL GRIFFITHS Rep #: [id number] : 1960 F 57 From: Asaf Brar MD PCP: Suzy Willis DO Status: REG CLI Study: Pelvic (Non ) Date of Exam: 09/28/18 Exam# [id number] Ordering Dr: Suzy Willis DO STUDY: ULTRASOUND OF THE FEMALE PELVIS - COMPLETE REASON FOR EXAM: Female, 57 years old. Pelvic pain. LMP: Postmenopausal. TECHNIQUE: Transabdominal and transvaginal. TECHNICAL QUALITY: Adequate. COMPARISON: 06/24/2014. FINDINGS: The uterus is anteverted and is in a midline position. The uterus measures 7.0 x 3.9 x 2.7 cm. Nabothian cyst in the uterine cervix. The endometrium measures 2.4 mm in thickness, and is hyperechoic. There is no demonstrated endometrial mass. There is no demonstrated myometrial mass. I.U.D. - The patient does not have an I.U.D. The right ovary is not visualized. The left ovary is visualized. The left ovary measures 1.9 x 1.8 x 1.4 cm. There is no left ovarian cyst or ovarian mass. There is no visualized left adnexal mass or complex lesion. There is normal arterial and normal venous vascularity. There is no fluid in the cul-de-sac. The pre void volume of the bladder was 355 ml. US/Pelvic (Non ) IMPRESSION: 1. Nabothian cysts in the uterine cervix. 2. Normal ultrasound the uterus. 3. Nonvisualization of the right ovary. 4. Normal ultrasound of the left ovary. Electronically Signed: Asaf Brar MD at 14:15 EST , Service support , CC: Suzy Willis DO Ear Pull Machine Operator: Signed EMERGENCY DEPARTMENT Observed: 03/25/2018 Status: F Source: [place] SUMMARY 8:35 PM [facility] REPOSITORY [facility] Medical Records Department [address] [place] [address] Emergency Department Summary 03/25/18 1936 MR#: [id number] Acct: [id number] Name: CRYSTAL GRIFFITHS Rep #: [id number] : 1960 57 From: Easton Hernandez MD [...] feels like she has a headache and that her face is on fire. No lateralizing weakness. No slurred speech or facial droop. She did not check her temperature. She has been eating and drinking well. She does have a history of fibromyalgia Physical Examination: Vital signs reviewed. HEENT exam unremarkable. Heart is regular rate and rhythm without murmurs. Lungs are clear to auscultation. Abdomen is soft and nontender. Extremities reveal no edema. Skin exam normal. Neurologic exam normal. Test Results: Labs are normal Emergency Department Course and Treatment: Patient was given IV fluids. Her labs including TSH are normal. The Macrobid might be causing her to feel fatigued. She will discontinue this. She will increase her hydration and follow-up with her PCP Treatment Plan: [] Disposition: Discharge Impression: Fatigue This note was generated with Scoopinion dictation software. It may contain incorrect words, spelling, and punctuation that were not noted in review of the chart prior to signing ED Disposition - Plan for ED Patient: Chief Complaint: Fatigue Referrals: Suzy Willis DO [Primary Care Provider] - What to do if you have Problems For any increased pain, shortness of breath, bleeding, nausea or vomiting, chest pain, or any unexpected problems, contact your Primary Care Provider. Call [facility] ([phone]) or report to the closest Emergency Room. Call 911 if necessary. 03/25/182034 <Electronically signed by Easton Hernandez MD> Date Easton Hernandez MD Cosigner Signature (If Indicated): Date CC: Suzy Willis DO DISCHARGE INSTRUCTION Observed: 03/25/2018 Status: F Source: [place] 8:35 PM [facility] REPOSITORY [facility] Medical Records Department [address] [address] Discharge Instruction 03/25/182033 MR#: [id number] Acct: [id number] Name: CRYSTAL GRIFFITHS Rep #: [id number] : 1960 57 From: Easton Hernandez MD PCP: Suzy Willis DO Status: REG ER ED Disposition - Plan for ED Patient: Disposition: Home or Assisted Living Chief Complaint: Fatigue Instructions: ED Weakness UKO Referrals: Suzy Willsi, [Primary Care Provider] - What to do if you have Problems For any increased pain, shortness of breath, bleeding, nausea or vomiting, chest pain, or any unexpected problems, contact your Primary Care Provider. Call [facility] ([phone]) or report to the closest Emergency Room. Call 911 if necessary. 03/25/182034 <Electronically signed by Easton Hernandez MD> Date Easton Hernandez MD Cosigner Signature (If Indicated): Date CC: Suzy Willis DO URINALYSIS, COMPLETE Collected: 03/25/2018 Status: F Source: [place]ESSI 7:30 PM [facility] REPOSITORY Order Comment: How was Urine Obtained? CLEAN CATCH TYPE CODE TESTS RESULT OUT OF RANGE REFERENCE UNITS LAB L400.3000 Yellow COLOR Normal Yellow LAB L400.3050 Clear Normal CLARITY Clear LAB L400.3200 Normal mg/dl Normal GLUCOSE, UR Normal LAB L400.3300 Negative mg/dL Normal BILIRUBIN URINE Negative LAB L400.3400 Negative mg/dl Normal KETONE UR Negative LAB L400.3465 1.002-1.030 Normal SP.GR. DIPSTX 1.010 LAB L400.3550 5.0 - 8.0 pH UR Normal 6.5 LAB L400.3600 Negative mg/dl PROT Normal DIPSTX Negative LAB L400.3700 Normal mg/dl Normal UROBILI Normal LAB L400.3750 Negative Normal NITRITE UR Negative LAB L400.3780 Negative /ul High 25 OCCULT BLOOD-UR LAB L400.3800 Negative /ul LEUK Normal ESTERASE Negative LAB L400.4050 0-5 /hpf WBC 0 Normal SEEN LAB L400.4100 0-5 /hpf 0 Normal RBC-UA SEEN LAB L400.4150 5-10 /hpf SQUAM 0 Normal EPI SEEN LAB L400.4300 None Seen /hpf 0 Normal BACTERIA SEEN LAB L400.4350 <or=2+ /hpf 0 Normal MUCUS, URINE SEEN Performed By: #### L400.0001 #### [facility] [address] [place], [address] CBC W/DIFF, AUTOMATED Collected: 03/25/2018 Status: F Source: [place] 7:21 PM [facility] REPOSITORY TYPE CODE TESTS RESULT OUT OF RANGE REFERENCE UNITS LAB L100.1000 4.4-11.0 K/mm3 Normal WBC 5.0 LAB L100.1200 4.2-5.4 M/mm3 Normal RBC 4.38 LAB L100.1300 12.0-15.0 g/dl Normal HGB 12.8 LAB L100.1400 37-47 % Normal HCT 39.0 LAB L100.1500 81-99 fL Normal MCV 89.0 LAB L100.1600 27.0-32.0 pg Normal MCH 29.2 LAB L100.1700 32-36 g/gl Normal MCHC 32.8 LAB L100.1810 11.6-14.6 % Normal RDW CV 13.2 LAB L100.1820 35.1-43.9 fl Normal RDW SD 42.7 LAB L100.1900 150-450 K/mm3 Normal PLT 180 LAB L100.2000 6.2-12.0 fl Normal MPV 10.1 LAB L100.2100 47-70 % Normal NEUT% 63.8 LAB L100.2200 19-41 % Normal LY% 25.5 LAB L100.2300 0-10 % Normal MONO% 8.3 LAB L100.2400 0-5 % Normal EO% 2.0 LAB L100.2500 0-1 % Normal BASO% 0.4 LAB L100.2550 0.0-0.9 % Normal IM GRAN % 0.000 Result Comment: IG% - Immature Granulocytes (promyelocytes, myelocytes and metamyelocytes) > 1% indicates that a LEFT SHIFT is Present. LAB L100.2620 2.0-7.7 X10 3/uL Normal Absolute Neut 3.2 LAB L100.2720 0.83-4.51 X10 3/ul Normal Absolute Lymph 1.26 Performed By: #### L100.0100 #### [facility] [address] [place], [address] BASIC METABOLIC Collected: 03/25/2018 Status: F Source: [place] PROFILE (BMP) 7:21 PM [facility] REPOSITORY TYPE CODE TESTS RESULT OUT OF RANGE REFERENCE UNITS LAB L501.0100 74-106 mg/dL High GLU 148 Result Comment: Fasting Glucose result greater than or equal to 126 mg/dL suggests DIABETES MELLITUS per A.D.A. criteria. Please note revised GLUCOSE reference range effective 2017. LAB L501.1000 7-18 mg/dL Normal BUN 11 LAB L501.1100 0.55-1.02 mg/dL Normal CREAT,SERUM 0.96 Result Comment: The validity of the calculated GFR AND GFRAA in patients over 70 years has not been determined. Clinical correlation is essential. LAB L501.1110 >60 mL/min Normal EST GFR 64 Result Comment: Non- GFR Calc LAB L501.1115 >60 mL/min Normal EST GFR - AA 77 Result Comment: GFR Calc LAB L501.1255 ml/min Normal Estimated CRCL 42.02 LAB L501.1300 10-20 RATIO Normal BUN/CRE 11.5 LAB L501.2200 8.5-10 mg/dL Normal .1 CA 9.4 LAB L501.5300 136-14 mmol/L Normal 5 NA 136 LAB L501.5600 3.5-5. mmol/L Normal 1 K 3.8 LAB L501.5900 98-107 mmol/L Normal CL 102 LAB L501.6100 21.0-3 mmol/L Normal 2.0 CO2 25.0 LAB L501.6200 5-15 Normal GAP 9 Performed By: #### L500.2500 #### [facility] [address] [place], [address] THYROID STIM HORMONE Collected: 03/25/2018 Status: F Source: [place] (TSH) 7:21 PM [facility] REPOSITORY TYPE CODE TESTS RESULT OUT OF RANGE REFERENCE UNITS LAB L501.9520 0.358-3.74 uIU/mL Normal TSH 1.23 Performed By: #### L501.9520 #### [facility] [address] [place], [address] SCREENING MAMM (CAD), Observed: 11/09/2017 Status: F Source: MESSI BILAT 8:27 AM [facility] REPOSITORY [facility] Imaging Services [address] [facility] [address] SCREENING MAMM (CAD), BILAT MR#: [id number] Acct: [id number] Name: CRYSTAL GRIFFITHS Rep #: [id number] : 1960 F 57 From: Edmond Vale MD PCP: Suzy Willis DO Status: REG CLI Study: SCREENING MAMM (CAD), BILAT Date of Exam: 11/09/17 Exam# [id number] Ordering Dr: Suzy Willis DO MAMMOGRAPHY - BILATERAL SCREENING REASON FOR EXAM: Female, 57 years old. Routine annual screening examination. PERTINENT HISTORY: Injury to the right breast. TECHNIQUE: Digital bilateral breast susan (3D mammographic acquisition) in the CC and MLO projections. 2-D mediolateral oblique (MLO) and craniocaudad (CC) views of both breasts were obtained. CAD: Full Field Digital Mammography with Computer Added Detection was performed. COMPARISON: No comparison mammograms available at this time. If any prior films become available, an addendum to this report can be generated. FINDINGS: Breast Composition: There are scattered areas of fibroglandular density. There are no dominant masses or suspicious calcifications. Benign appearing bilateral axillary lymph nodes. No other significant abnormalities are identified. HPBI/SCREENING MAMM (CAD), BILAT IMPRESSION: Negative screening mammogram. Yearly followup mammogram recommended. (A) ASSESSMENT CATEGORY: BIRADS Category 2: Benign. A letter regarding these results will be sent to the patient by the facility within 30 days. Approximately 10% of breast cancers are not detected by mammography. A normal mammogram should not delay biopsy of a clinically suspicious abnormality. 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 ALLERGIES ALLERGIES DATE TYPE / NAME / CODE REACTION SEVERITY SOURCE CODE 10/02/2018 Drug fluticasone syncope Unknown [facility] Allergy/41 propionate/[id number] [facility] [id number]( 593(RXNORM) [facility]) Repository 10/02/2018 Drug salmeterol syncope Unknown [place] Allergy/41 xinafoate/[id number] [facility] [id number]( 37(RXNORM) [facility]) Repository 10/02/2018 Drug formoterol PALPITATIONS Unknown [place] Allergy/41 fumarate/[id number] [facility] [id number]( 2(RXNORM) [facility]) Repository 10/02/2018 Drug codeine/[id number] Nausea Unknown [place] Allergy/41 (RXNORM) Community [id number]([facility]) Repository 10/02/2018 Drug erythromycin Hives Unknown [place] Allergy/41 base/[id number]([facility] [id number]([facility]) Repository 10/02/2018 Drug budesonide/[id number] PALPITATIONS Unknown [place] Allergy/41 214(RXNORM) [facility] [id number]([facility]) Repository ENCOUNTERS ENCOUNTERS ADMIT/DISCHARGE ACCOUNT ADMITTING ENCOUNTER LOCATION SOURCE NUMBER CLASS 10/06/2018 [id number] Ambulatory BMSBuilding:B Messi 2 MS.[facility] Repository 10/05/2018 [id number] Ambulatory Building:[facility] Practices Repository 10/02/2018/ [id number] Emergency Messi Messi 9 5 [facility] ing:ED Repository 09/28/2018 [id number] Ambulatory [place] 1 [facility] ing:OPUS Repository 09/22/2018 [id number] Ambulatory BMSBuilding:B Messi 1 MS.[facility] Repository 03/25/2018/ [id number] Emergency [place] 8 3 [facility] ing:ED Repository 11/09/2017 [id number] Ambulatory [place] 9 [facility] ing:BI Repository PAYERS PAYERS ENCOUNTER GUARANTOR PAYER SUBSCRIBER SOURCE 10/06/2018 DREMA S [id number] Primary URBAN M Messi S SMYSER Insurance:ANTHEMPolic GRAYDOB: [facility] Number: [id number] Hospital [address]Mso: 330 [id number] Repository [phone] () Date:[id number] [address]YX: 10/06/2018 Secondary NOT GIVENUNK [place] Insurance:SELF PAY [facility] Number: Effective Repository Date:2018-10-06 10/05/2018 Drema S GrayDOB: Primary Drema S GrayDOB: OHIP Practices Insurance:[place] [id number] Repository [facility] Number: [place], [place] [id number] [place], [place] [address]Iok: 330) Date:4097-14-61Yrdk 57[address]Ofl: () Name:[facility] [phone] () [id number] [place] [address] [id number]: 10/05/2018 Secondary [place] W OHIP Practices Insurance:[employer] GrayDOB: Repository InsurancePoly [id number] Number: Issa Espinoza [id number] [facility] [place] Date:2013-09-12 [address]Nqk: [phone]) [id number] [phone] () Name:[address] [address]RV: 10/02/2018 DREMA S [id number] Primary URBAN M Messi S SMYSER Insurance:ANTHEMPolic GRAYDOB: [place] Number: [id number] Hospital [address]Vkf: (330) [id number] Repository [phone] () Date:3677-25-95NV [address] [address]JY: 10/02/2018 Secondary NOT GIVENUNK [place] Insurance:SELF PAY [facility] Number: Effective Repository Date:2018-10-02 09/28/2018 DREMA S [id number] Primary URBAN M [place] S SMYSER Insurance:ANTHEMPolic GRAYDOB: [facility] [place] Number: [id number] Hospital [id number]: (330) [id number] Repository [phone] () Date:3550-82-51MH [address] [address]ID: 09/28/2018 Secondary NOT GIVENUNK [place] Insurance:SELF PAY [facility] Number: Effective Repository Date:2018-09-25 09/22/2018 DREMA S [id number] Primary URBAN M Messi S [place] Insurance:ANTHEMPolic GRAYDOB: [facility] [place] Number: [id number] Hospital [id number]: (330) [id number] Repository [phone] () Date:[id number] [address]ER: 09/22/2018 Secondary NOT GIVENUNK [place] Insurance:SELF PAY [facility] Number: Effective Repository Date:2018-09-22 03/25/2018 Crystal Lo9 Primary URBAN M Messi S [place] Insurance:ANTHEMPolic GRAYDOB: [facility] ansley [place] y Number: [id number] Hospital [address]Pjw: 330 [id number] Repository [phone] () Date:[id number] [address] [place] [address]MG: 03/25/2018 Secondary NOT GIVENUNK Messi Insurance:SELF PAY [facility] Number: Effective Repository Date:2018-03-25 11/09/2017 Crystal Lo9 Primary URBAN M [place] S [place] Insurance:ANTHEMPolic GRAYDOB: [facility] ansley [place] y Number: [id number] Hospital [address]Lty: 330 [id number] Repository [phone] () Date:3800-44-48LD [address] [place] [address]LB: 11/09/2017 Secondary NOT GIVENUNK [place] Insurance:SELF PAY [facility] Number: Effective Repository Date:2017-10-11
== END ==
LOC: OPUS 13:16
PROVIDERS: Family Provider Internal Medicine; PCP Internal Medicine; Referring Provider Internal Medicine; Visit Provider Internal Medicine
DX: R10.2 Pelvic and perineal pain (principal)
CPT/HCPCS: 76830; 76856

== ENCOUNTER 2018-10-02 16:05 | Emergency (ER) | payer BC, SELFPAY ==
[2018-10-02 16:06] VITALS: BP 168/92; PULSE 91; RESP 16; TEMP 37.3; O2SAT 95; BMI 39.9
[2018-10-02 16:18] VITALS: BP 181/90; PULSE 90; RESP 14; O2SAT 99
--- NOTE | 2018-10-02 16:34 | CT_ITS ---
STUDY: CT BRAIN WITHOUT CONTRAST REASON FOR EXAM: Female, 57 years old. Dizziness. RADIATION DOSAGE (If Supplied By Facility): CTDIvol = ( 44.99 ) mGy, DLP = ( 711.75 ) mGycm TECHNIQUE: Transaxial CT imaging of the brain was performed without administration of intravenous contrast material. Individualized dose optimization techniques were used for this CT. COMPARISON: December 28, 2016. FINDINGS: Normal soft tissue structures. Normal calvarium. Normal size ventricles and extra-axial spaces for the patient's age. Normal white matter tracts of the cerebral hemispheres. Normal basal ganglia and thalami. Normal brainstem. Normal cerebellum. There is no intracranial hemorrhage. There are no findings of an acute ischemic infarction. Normal visualized paranasal sinuses. CT/Brain/Head without Contrast IMPRESSION: Normal unenhanced CT scan of the brain. There is no interval change. Electronically Signed: Silverio Bright DO at 17:32 EST Tel [phone], Service support ,
--- NOTE | 2018-10-02 16:34 | EKG12_ITS ---
Test Reason : HYPERTENSION Blood Pressure : / mmHG Vent. Rate : 087 BPM Atrial Rate : 087 BPM P-R Int : 162 ms QRS Dur : 096 ms QT Int : 358 ms P-R-T Axes : 030 036 056 degrees QTc Int : 430 ms Normal sinus rhythm Normal ECG Confirmed by INES RIVERA, SUPA ([id number]), editorial cartoonist MARQUIS TINOCO ([id number]) on 10/04/2018 1:41:31 PM Referred By: Suzy Willis Confirmed By:SUPA CHACON MD
--- NOTE | 2018-10-02 16:35 | ED.VISSUMM ---
- ER Visit Summary Date of Service: 10/02/18 Chief Complaint: Dizziness History of Present Illness: The patient is a 57 F patient presents for dizziness since this morning, now complaining of high blood pressure, bilateral arm pain and tingling, and generalized achiness. Patient states since this morning she is felt dizzy, which is worse when she stands. 2 hours ago she started feeling worse and took her blood pressure, noting it was 197/102. Both arms felt achy, mainly in the elbow region, and also she had tingling from the shoulders down. This lasted approximately 1 minute. It happened a total of 3 times. She has diffuse myalgias and arthralgias, nausea, headache, generalized weakness. Denies fever, vision changes, chest pain or shortness of breath. Patient has history of diabetes, asthma, hypertension, mitral valve prolapse, and fibromyalgia. She is on atenolol and metformin. Denies alcohol or tobacco use. Physical Examination: Vital signs: afebrile, hypertensive at 168/92 no hypoxia on room air General: well nourished, well developed, in no distress Skin: warm, dry, no rash, no pallor HEENT: normocephalic and atraumatic; PERRL, EOMI, moist mucous membranes, neck is supple, nontender, full active range of motion, no lymphadenopathy or meningismus Cardiovascular: regular rate and rhythm without murmurs, no peripheral edema, 2+ pulses all distal extremities Respiratory: No increased work of breathing, lungs are clear to auscultation bilaterally, no rales, rhonchi or wheezing Abdominal: Abdomen is soft, nontender with normoactive bowel sounds, no guarding or rebound, no masses MSK: Moves all extremities, no deformities, normal strength Neuro: Awake and alert, oriented ?4. No facial droop, sensation and motor function intact and symmetric, no nystagmus Test Results: Abnormal Lab Results 10/02/18 10/02/18 10/02/18 17:04 17:04 17:04 WBC 9.1 RBC 4.28 Hgb 12.6 Hct 39.0 MCV 91.1 MCH 29.4 MCHC 32.3 RDW 13.2 RDW Differential 43.5 Plt Count 189 MPV 10.8 Sodium 140 Potassium 3.5 Chloride 103 Carbon Dioxide 27.0 Anion Gap 10 BUN 10 Creatinine 0.72 Estim Creat Clear Calc 63.48 Est GFR (MDRD) Af Amer 106 Est GFR (MDRD) Non-Af 88 BUN/Creatinine Ratio 13.9 Glucose 104 Calcium 9.1 Total Bilirubin 0.50 AST 55 H ALT 63 H Alkaline Phosphatase 139 H Troponin I < 0.015 Total Protein 7.2 Albumin 3.9 Globulin 3.3 Albumin/Globulin Ratio 1.2 Urine Color Yellow Urine Clarity Clear Urine pH 8.0 Ur Specific [place] 1.010 Urine Protein Negative Urine Glucose (UA) Normal Urine Ketones Negative Urine Occult Blood Negative Urine Nitrite Negative Urine Bilirubin Negative Urine Urobilinogen Normal Ur Leukocyte Esterase Negative Urine RBC 0 SEEN Urine WBC 0 SEEN Ur Squamous Epith Cells 0-5 SEEN Urine Bacteria 0 SEEN Urine Mucus 0 SEEN POC Glucose 10/02/18 17:10 WBC RBC Hgb Hct MCV MCH MCHC RDW RDW Differential Plt Count MPV Sodium Potassium Chloride Carbon Dioxide Anion Gap BUN Creatinine Estim Creat Clear Calc Est GFR (MDRD) Af Amer Est GFR (MDRD) Non-Af BUN/Creatinine Ratio Glucose Calcium Total Bilirubin AST ALT Alkaline Phosphatase Troponin I Total Protein Albumin Globulin Albumin/Globulin Ratio Urine Color Urine Clarity Urine pH Ur Specific [place] Urine Protein Urine Glucose (UA) Urine Ketones Urine Occult Blood Urine Nitrite Urine Bilirubin Urine Urobilinogen Ur Leukocyte Esterase Urine RBC Urine WBC Ur Squamous Epith Cells Urine Bacteria Urine Mucus POC Glucose 104 Clinical Impression(s) from Imaging Studies Brain CT 10/02/18 16:34 IMPRESSION: Normal unenhanced CT scan of the brain. There is no interval change. Electronically Signed: Silverio Bright DO at 17:32 EST Tel [phone], Service support , Chest X-Ray 10/02/18 17:19 IMPRESSION: No acute cardiopulmonary disease or interval change. Electronically Signed: Silverio Bright DO at 17:39 EST Tel [phone], Service support , Medications Given Discontinued Medications Sodium Chloride () 1,000 mls @ 1,000 mls/hr IV .Q1H ONE Stop: 10/02/18 17:33 Last Admin: 10/02/18 17:01 Dose: 1,000 mls/hr Emergency Department Course and Treatment: Patient presents for multiple complaints, mainly complaining of her high blood pressure. However her blood pressure is most likely reactive to her other complaints rather than the cause. Because patient is complaining of dizziness, headache and the bilateral arm tingling, head CT was performed. Patient is also having arm pain and myalgias/arthralgias, nausea, and shivering. This sounds potentially prodromal to an infectious process. Patient was given IV fluids for hydration, and is complaining that she is very thirsty. Blood glucose was checked and was within normal limits. Labs showed no leukocytosis or anemia. No electrolyte derangements. Very minimal elevation in the transaminases, not even 50% greater than normal upper limit. Troponin negative. EKG showed a sinus rhythm with no ischemic changes. Chest x-ray showed no pneumonia. CT of the head showed no mass or intracranial hemorrhage. Patient's blood pressure improved without any medical intervention. On reevaluation patient still was feeling achy and still felt dizzy, describing it is lightheadedness, and stating she has had vertigo in the past but this does not feel like spinning sensation or disequilibrium. Because patient is having the dizziness with the bilateral arm pain, is female and diabetic, and thus may have atypical presentation of ACS, EKG and troponin will be repeated, as patient's heart score is 3. Patient was ambulated and was able to walk without any difficulty or worsening of her symptoms. EKG showed normal sinus rhythm with no ischemia or ectopy, unchanged from initial one. Repeat troponin was negative. Patient was reevaluated and still feels slightly dizzy and has diffuse achiness, but otherwise feels well enough to go home. Her blood pressure is 136/74 at time of my evaluation. Patient asked if she should take an additional half an atenolol when she gets home, and I told her not to, as we do not want her blood pressure to go too low. We discussed patient's constellation of symptoms again, and since she is having diffuse myalgias, had episode of shivering and inability to get warm prior to coming in, has the vague dizziness, and general malaise, her symptoms do sound concerning for prodrome to infection. No acute life-threatening process was noted that would require admission or further imaging or testing. Patient was agreeable with discharge home and will return if any worsening of her condition. Treatment Plan: [] Disposition: [] Impression: General malaise, established hypertension, diffuse myalgias, dizziness This note was generated with [employer] dictation software. It may contain incorrect words, spelling, and punctuation that were not noted in review of the chart prior to signing ED Disposition - Plan for ED Patient: Disposition: Home or Assisted Living Chief Complaint: Hypertension Instructions: ED Dizziness [facility]O, ED HTN Established, ED Muscle Aching Referrals: Suzy Willis, [Primary Care Provider] - 1-2 Days if not improving Additional Instructions: Drink plenty of fluids to stay hydrated. Do not take additional blood pressure medication tonight, as we do not want your blood pressure to drop too low. Follow-up with your doctor if you continue to feel achy and dizzy. If you have any worsening of your condition or any new concerning symptoms, please return immediately to the emergency department for another evaluation.
--- NOTE | 2018-10-02 16:38 | NURSING ---
NO OLD EKGS
--- NOTE | 2018-10-02 16:39 | ED.DCSUM_ITS ---
- ER Visit Summary Date of Service: 10/02/18 Chief Complaint: Dizziness History of Present Illness: The patient is a 57 F patient presents for dizziness since this morning, now complaining of high blood pressure, bilateral arm pain and tingling, and generalized achiness. Patient states since this morning she is felt dizzy, which is worse when she stands. 2 hours ago she started feeling worse and took her blood pressure, noting it was 197/102. Both arms felt achy, mainly in the elbow region, and also she had tingling from the shoulders down. This lasted approximately 1 minute. It happened a total of 3 times. She has diffuse myalgias and arthralgias, nausea, headache, generalized weakness. [place] es fever, vision changes, chest pain or shortness of breath. Patient has history of diabetes, asthma, hypertension, mitral valve prolapse, and fibromyalgia. She is on atenolol and metformin. Denies alcohol or tobacco use. Physical Examination: Vital signs: afebrile, hypertensive at 168/92 no hypoxia on room air General: well nourished, well developed, in no distress Skin: warm, dry, no rash, no pallor HEENT: normocephalic and atraumatic; PERRL, EOMI, moist mucous membranes, neck is supple, nontender, full active range of motion, no lymphadenopathy or meningismus Cardiovascular: regular rate and rhythm without murmurs, no peripheral edema, 2+ pulses all distal extremities Respiratory: No increased work of breathing, lungs are clear to auscultation bilaterally, no rales, rhonchi or wheezing Abdominal: Abdomen is soft, nontender with normoactive bowel sounds, no guarding or rebound, no masses MSK: Moves all extremities, no deformities, normal strength Neuro: Awake and alert, oriented ?4. No facial droop, sensation and motor function intact and symmetric, no nystagmus Test Results: Abnormal Lab Results 10/02/18 10/02/18 10/02/18 17:04 17:04 17:04 WBC 9.1 RBC 4.28 Hgb 12.6 Hct 39.0 MCV 91.1 MCH 29.4 MCHC 32.3 RDW 13.2 RDW Differential 43.5 Plt Count 189 MPV 10.8 Sodium 140 Potassium 3.5 Chloride 103 Carbon Dioxide 27.0 Anion Gap 10 BUN 10 Creatinine 0.72 Estim Creat Clear Calc 63.48 Est GFR (MDRD) Af Amer 106 Est GFR (MDRD) Non-Af 88 BUN/Creatinine Ratio 13.9 Glucose 104 Calcium 9.1 Total Bilirubin 0.50 AST 55 H ALT 63 H Alkaline Phosphatase 139 H Troponin I < 0.015 Total Protein 7.2 Albumin 3.9 Globulin 3.3 Albumin/Globulin Ratio 1.2 Urine Color Yellow Urine Clarity Clear Urine pH 8.0 Ur Specific [place] 1.010 Urine Protein Negative Urine Glucose (UA) Normal Urine Ketones Negative Urine Occult Blood Negative Urine Nitrite Negative Urine Bilirubin Negative Urine Urobilinogen Normal Ur Leukocyte Esterase Negative Urine RBC 0 SEEN Urine WBC 0 SEEN Ur Squamous Epith Cells 0-5 SEEN Urine Bacteria 0 SEEN Urine Mucus 0 SEEN POC Glucose 10/02/18 17:10 WBC RBC Hgb Hct MCV MCH MCHC RDW RDW Differential Plt Count MPV Sodium Potassium Chloride Carbon Dioxide Anion Gap BUN Creatinine Estim Creat Clear Calc Est GFR (MDRD) Af Amer Est GFR (MDRD) Non-Af BUN/Creatinine Ratio Glucose Calcium Total Bilirubin AST ALT Alkaline Phosphatase Troponin I Total Protein Albumin Globulin Albumin/Globulin Ratio Urine Color Urine Clarity Urine pH Ur Specific [place] Urine Protein Urine Glucose (UA) Urine Ketones Urine Occult Blood Urine Nitrite Urine Bilirubin Urine Urobilinogen Ur Leukocyte Esterase Urine RBC Urine WBC Ur Squamous Epith Cells Urine Bacteria Urine Mucus POC Glucose 104 Clinical Impression(s) from Imaging Studies Brain CT 10/02/18 16:34 IMPRESSION: Normal unenhanced CT scan of the brain. There is no interval change. Electronically Signed: Silverio Bright DO at 17:32 EST Tel [phone], Service support , Chest X-Ray 10/02/18 17:19 IMPRESSION: No acute cardiopulmonary disease or interval change. Electronically Signed: Silverio Bright DO at 17:39 EST Tel [phone], Service support , Medications Given Discontinued Medications Sodium Chloride () 1,000 mls @ 1,000 mls/hr IV .Q1H ONE Stop: 10/02/18 17:33 Last Admin: 10/02/18 17:01 Dose: 1,000 mls/hr Emergency Department Course and Treatment: Patient presents for multiple complaints, mainly complaining of her high blood pressure. However her blood pressure is most likely reactive to her other complaints rather than the cause. Because patient is complaining of dizziness, headache and the bilateral arm tingling, head CT was performed. Patient is also having arm pain and myalgias/arthralgias, nausea, and shivering. This sounds potentially prodromal to an infectious process. Patient was given IV fluids for hydration, and is complaining that she is very thirsty. Blood glucose was checked and was within normal limits. Labs showed no leukocytosis or anemia. No electrolyte derangements. Very minimal elevation in the transaminases, not even 50% greater than normal upper limit. Troponin negative. EKG showed a sinus rhythm with no ischemic changes. Chest x-ray showed no pneumonia. CT of the head showed no mass or intracranial hemorrhage. Patient's blood pressure improved without any medical intervention. On reevaluation patient still was feeling achy and still felt dizzy, describing it is lightheadedness, and stating she has had vertigo in the past but this does not feel like spinning sensation or disequilibrium. Because patient is having the dizziness with the bilateral arm pain, is female and diabetic, and thus may have atypical presentation of ACS, EKG and troponin will be repeated, as patient's heart score is 3. Patient was ambulated and was able to walk without any difficulty or worsening of her symptoms. EKG showed normal sinus rhythm with no ischemia or ectopy, unchanged from initial one. Repeat troponin was negative. Patient was reevaluated and still feels slightly dizzy and has diffuse achiness, but otherwise feels well enough to go home. Her blood pressure is 136/74 at time of my evaluation. Patient asked if she should take an additional half an atenolol when she gets home, and I told her not to, as we do not want her blood pressure to go too low. We discussed patient's constellation of symptoms again, and since she is having diffuse myalgias, had episode of shivering and inability to get warm prior to c oming in, has the vague dizziness, and general malaise, her symptoms do sound concerning for prodrome to infection. No acute life-threatening process was noted that would require admission or further imaging or testing. Patient was agreeable with discharge home and will return if any worsening of her condition. Treatment Plan: [] Disposition: [] Impression: General malaise, established hypertension, diffuse myalgias, dizziness This note was generated with [employer] dictation software. It may contain incorrect words, spelling, and punctuation that were not noted in review of the chart prior to signing ED Disposition - Plan for ED Patient: Disposition: Home or Assisted Living Chief Complaint: Hypertension Instructions: ED Dizziness [facility]O, ED HTN Established, ED Muscle Aching Referrals: Suzy Willis, [Primary Care Provider] - 1-2 Days if not improving Additional Instructions: Drink plenty of fluids to stay hydrated. Do not take additional blood pressure medication tonight, as we do not want your blood pressure to drop too low. Follow-up with your doctor if you continue to feel achy and dizzy. If you have any worsening of your condition or any new concerning symptoms, please return immediately to the emergency department for another evaluation.
[2018-10-02] MEDS: 0.9% Normal Saline 1,000 ML 1000 ML IV (17:01)
[2018-10-02 17:13] LABS: Bacteria 0 SEEN /hpf (None Seen); Mucous, Urine 0 SEEN /hpf (<or=2+); Red Blood Cells-Urine 0 SEEN /hpf (0-5); White Blood Cells 0 SEEN /hpf (0-5)
[2018-10-02 17:16] LABS: Hemoglobin 12.6 g/dl (12.0-15.0); Mean Corp Hgb Conc 32.3 g/gl (32-36); Mean Corpuscular Hgb 29.4 pg (27.0-32.0); Mean Corpuscular Volume 91.1 fL (81-99); Mean Platelet Vol. 10.8 fl (6.2-12.0); Platelet Count 189 K/mm3 (150-450); RBC Distribution Width CV 13.2 % (11.6-14.6); RBC Distribution Width SD 43.5 fl (35.1-43.9); Red Blood Count 4.28 M/mm3 (4.2-5.4); White Blood Count 9.1 K/mm3 (4.4-11.0)
[2018-10-02 17:16] LABS: Bedside Glucose 104 mg/dL (70-110)
[2018-10-02 17:18] LABS: Scan Indicated on CBC? Y/N NO
--- NOTE | 2018-10-02 17:19 | RAD_ITS ---
STUDY: X-RAY CHEST REASON FOR EXAM: Female, 57 years old. Bilateral arm pain. TECHNIQUE: PA and lateral views of the chest. COMPARISON: Chest, October 09, 2015. FINDINGS: Aggregate, The lungs are clear and expanded. There is no demonstrated pleural abnormality. Normal size heart. Normal mediastinum and alfredo. Normal visualized pulmonary arteries. Normal visualized aortic arch and descending thoracic aorta. Normal visualized thoracic spine. Normal visualized ribs, clavicles, and shoulders. There is no demonstrated abnormality of the visualized soft tissue structures of the upper abdomen. RAD/Chest PA and Lateral IMPRESSION: No acute cardiopulmonary disease or interval change. Electronically Signed: Silverio Bright DO at 17:39 EST Tel [phone], Service support ,
[2018-10-02 17:42] LABS: Color, Urine Yellow (Yellow); Glucose, Dipstick Normal (Normal); Ketone-Dipstick Negative (Negative); Leukocyte Esterase-Dipstick Negative /ul (Negative); Nitrite-Dipstick Negative (Negative); Occult Blood-Urine Negative /ul (Negative); Protein-Dipstick Negative (Negative); Urine Bilirubin Dipstick Negative (Negative); Urine Clarity Clear (Clear); Urine Urobilinogen Normal (Normal)
[2018-10-02 17:46] LABS: ALB/GLOB Ratio 1.2 RATIO (0.9-2.4); AST(SGOT) 55 U/L (15-37); Alanine Aminotransfer ALT/SGPT 63 U/L (13-56); Albumin, Serum 3.9 g/dL (3.2-5.0); Alkaline Phosphatase 139 U/L (45-117); Anion Gap 10 (5-15); BUN 10 mg/dL (7-18); BUN/Creat Ratio 13.9 RATIO (10-20); Calcium,Total 9.1 mg/dL (8.5-10.1); Chloride 103 mmol/L (98-107); Creatinine, Serum 0.72 mg/dL (0.55-1.02); EST Glomerular Filtration Rate 88 mL/min (>60); Est Glom Filt Rate - Afr Amer 106 mL/min (>60); Estimated Creatinine Clearance 63.48 ml/min; Globulin 3.3 g/dL (2.2-4.2); Glucose 104 mg/dL (74-106); Potassium 3.5 mmol/L (3.5-5.1); Protein, Total 7.2 g/dL (6.4-8.2); Sodium Level 140 mmol/L (136-145)
[2018-10-02 18:02] VITALS: BP 158/80; PULSE 81; RESP 20; O2SAT 98
[2018-10-02 18:02] LABS: Squamous Epithelial Cells - UA 0-5 SEEN /hpf (5-10)
[2018-10-02 19:02] VITALS: BP 141/70; PULSE 77; RESP 12; O2SAT 95
--- NOTE | 2018-10-02 19:23 | EKG12_ITS ---
Test Reason : REPEAT Blood Pressure : / mmHG Vent. Rate : 074 BPM Atrial Rate : 074 BPM P-R Int : 160 ms QRS Dur : 098 ms QT Int : 412 ms P-R-T Axes : 045 035 050 degrees QTc Int : 457 ms Normal sinus rhythm Normal ECG Confirmed by INES RIVERA, SUPA ([id number]), state editor MARQUIS TINOCO ([id number]) on 10/04/2018 1:41:49 PM Referred By: Suzy Willis Confirmed By:SUPA CHACON MD
--- NOTE | 2018-10-02 20:57 | ED.DEP ---
ED Disposition - Plan for ED Patient: Disposition: Home or Assisted Living Chief Complaint: Hypertension Instructions: ED HTN Established, ED Muscle Aching, ED Dizziness [facility]O Referrals: Suzy Willis, [Primary Care Provider] - 1-2 Days if not improving Additional Instructions: Drink plenty of fluids to stay hydrated. Do not take additional blood pressure medication tonight, as we do not want your blood pressure to drop too low. Follow-up with your doctor if you continue to feel achy and dizzy. If you have any worsening of your condition or any new concerning symptoms, please return immediately to the emergency department for another evaluation.
[2018-10-02 21:06] VITALS: BP 134/79; PULSE 73; RESP 14; O2SAT 94
--- OUTSIDE RECORDS SUMMARY | 2018-12-05 04:38 | XMS RPT_ITS ---
[...] LEAD ELECTROCARDIOGRAM Observed: 10/04/2018 Status: F Source: [place] 1:42 PM [facility] REPOSIT[facility] Cardiovascular [place] [address] 12 Lead EKG 10/02/182007 MR#: [id number] Acct: [id number] Name: CRYSTAL GRIFFITHS Rep #: [id number] : 1960 57 From: Ruben Chacon MD [...] Normal ECG Confirmed by RUBEN CHACON MD ([id number]), assignment desk editor MARQUIS TINOCO ([id number]) on 10/04/2018 1:41:49 PM Referred By: Suzy Willis Confirmed By:RUBEN CHACON MD 10/04/18 1341 Date Ruben Chacon MD CC: Suzy Willis DO; Lynette Cantor MD Signed 12 LEAD ELECTROCARDIOGRAM Observed: 10/04/2018 Status: F Source: [place] 1:41 PM [facility] REPOS[facility] Cardiovascular Services [address] [place] [address] 12 Lead EKG 10/02/18 1647 MR#: [id number] Acct: [id number] Name: CRYSTAL GRIFFITHS Rep #: [id number] : 1960 57 From: Ruben Chacon MD [...] ECG Confirmed by RUBEN CHACON MD ([id number]), assignment desk editor MARQUIS TINOCO (54) on 10/04/2018 1:41:31 PM Referred By: Suzy Willis Confirmed By:RUBEN CHACON MD 10/04/18 1341 Date Ruben Chacon MD CC: Suzy Willis DO; Lynette Cantor MD Signed EMERGENCY DEPARTMENT Observed: 10/02/2018 Status: F Source: [place] SUMMARY 9:22 PM [facility] Medical Records Department [address] [place] [address] Emergency Department Summary 10/02/18 1635 MR#: [id number] Acct: [id number] Name: CRYSTAL GRIFFITHS Rep #: [id number] : 1960 57 From: Lynette Cantor MD [...] Silverio Bright DO at 17:32 EST Tel [phone], Service support , Chest X-Ray 10/02/18 17:19 IMPRESSION: No acute cardiopulmonary disease or interval change. Electronically Signed: Silverio Bright DO at 17:39 EST Tel [phone], Service support , Medications Given Discontinued Medications [...] myalgias, dizziness This note was generated with SNRL[employer] dictation software. It may contain incorrect words, [...] problems, contact your Primary Care Provider. Call [facility] ([phone]) or report to the closest Emergency Room. Call 911 if necessary. 10/02/182121 <Electronically signed by Lynette Cantor MD> Date Lynette Cantor MD Cosigner Signature (If Indicated): Date CC: Suzy Willis DO DISCHARGE INSTRUCTION Observed: 10/02/2018 Status: F Source: [place] 9:10 PM [facility] Medical Records Department [address] [place] [address] Discharge Instruction 10/02/182056 MR#: [id number] Acct: [id number] Name: CRYSTAL GRIFFITHS Rep #: [id number] : 1960 57 From: Lynette Cantor MD PCP: Szuy Willis DO Status: DEP ER ED Disposition [...] your Primary Care Provider. Call [facility] ([phone]) or report to the closest Emergency Room. Call 911 if necessary. 10/02/180 <Electronically signed by Lynette Cantor MD> Date Lynette Cantor MD Cosigner Signature (If Indicated): Date CC: Suzykenroy Willis DO TROPONIN-I Collected: 10/02/2018 Status: F Source: [place] 7:55 PM [facility] Order Comment: 'TROP' Serial specimen #1, #2 or #3: 2 TYPE CODE TESTS RESULT OUT OF RANGE REFERENCE UNITS LAB L501.4010 <0.045 ng/mL Normal < 0.015 TROPONIN-I Result Comment: TROPONIN-I EXPECTED VALUES <0.045 Negative 0.045 - 0.590 Consistent with Cardiac Damage > OR = 0.600 Critical Value Not every elevated troponin is indicative of NM. These values should be used with clinical judgement in examining the patient's clinical picture for diagnosis. To establish a diagnosis of NM versus myocardial injury, there must be a demonstrated rise and/or fall in the troponin values, in addition to ischemic symptoms, EKG changes, new regional wall motion abnormality, and/or angiographical evidence. PLEASE NOTE: REFERENCE RANGES EDITED 18 Performed By: #### L501.4010 #### [facility] [address] [place], [address] BEDSIDE GLUCOSE Collected: 10/02/2018 Status: F Source: [place] 5:10 PM [facility] TYPE CODE TESTS RESULT OUT OF RANGE REFERENCE UNITS LAB L501.080 70-110 mg/dL Normal BEDSIDE GLU 104 Result Comment: MANAGEMENT OF PATIENT CARE PER NURSING PROTOCOL Performed By: #### L501.080 #### [facility] Point of Care [address] [place], [place] [address] CBC-COMPLETE BLOOD CNT Collected: 10/02/2018 Status: F Source: [place] NO DIFF 5:04 PM [facility] TYPE CODE TESTS RESULT OUT OF [...] MPV 10.8 Performed By: #### L100.0500 #### [facility] [address] [place], [place], [address] URINALYSIS, COMPLETE Collected: 10/02/2018 Status: F Source: [place] 5:04 PM [facility] Order Comment: Order Date: 10/02/18 How [...] URINE SEEN Performed By: #### L400.0001 #### [facility] [address] [place], [place], [address] COMPREHENSIVE METABOLIC Collected: 10/02/2018 Status: F Source: [facility] 5:04 PM [facility] TYPE CODE TESTS RESULT OUT OF [...] 10 Performed By: #### L500.4050, L501.4010 #### [facility] [address] [facility] [place], [address] TROPONIN-I Collected: 10/02/2018 Status: F Source: [place] 5:04 PM [facility] TYPE CODE TESTS RESULT OUT OF RANGE REFERENCE UNITS LAB L501.4010 <0.045 ng/mL Normal < 0.015 TROPONIN-I Result Comment: TROPONIN-I EXPECTED VALUES <0.045 Negative 0.045 - 0.590 Consistent with Cardiac Damage > OR = 0.600 Critical Value Not every elevated troponin is indicative of NM. These values should be used with clinical judgement in examining the patient's clinical picture for diagnosis. To establish a diagnosis of NM versus myocardial injury, there must be a demonstrated rise and/or fall in the troponin values, in addition to ischemic symptoms, EKG changes, new regional wall motion abnormality, and/or angiographical evidence. PLEASE NOTE: REFERENCE RANGES EDITED 18 Performed By: #### L500.4050, L501.4010 #### [facility] [address] [place], [place], [address] BRAIN/HEAD WITHOUT Observed: 10/02/2018 Status: F Source: [place] CONTRAST 4:35 PM [facility] Imaging Services [address] [facility] [place] [address] Brain/Head without Contrast MR#: [id number] Acct: [id number] Name: CRYSTAL GRIFFITHS Rep #: [id number] : 1960 F 57 From: Silverio Bright DO PCP: Suzy Willis DO Status: REG ER Study: Brain/Head without Contrast Date of Exam: 10/02/18 Exam# [id number] Ordering Dr: Lynette Cantor MD STUDY: CT [...] Silverio Bright DO at 17:32 EST Tel [phone], Service support , CC: Suzy Willis DO; Lynette Cantor MD Analyst: Signed CHEST PA AND LATERAL Observed: 10/02/2018 Status: F Source: [place] 4:35 PM [facility] Imaging Services [address] [place] [address] Chest PA and Lateral MR#: [id number] Acct: [id number] Name: CRYSTAL GRIFFITHS Rep #: [id number] : 1960 F 57 From: Silverio Bright DO PCP: Suzy Willis DO Status: REG ER Study: Chest PA and Lateral Date of Exam: 10/02/18 Exam# [id number] Ordering Dr: Lynette Cantor MD STUDY: X-RAY [...] Silverio Bright DO at 17:39 EST Tel [phone], Service support , CC: Suzy Willis DO; Lynette Cantor MD Analyst: Signed TRANSVAGINAL Observed: 09/28/2018 Status: F Source: [place] NON- 1:43 PM [facility] REPOS[facility] Imaging Services [address] [place] [address] Transvaginal Non- MR#: [id number] Acct: [id number] Name: CRYSTAL GRIFFITHS Rep #: [id number] : 1960 F 57 From: Asaf Brar MD PCP: Suzy Willis DO Status: REG CLI Study: Transvaginal Non- Date of Exam: 09/28/18 Exam# [id number] Ordering Dr: Suzy Willis DO STUDY: ULTRASOUND [...] Service support , CC: Suzy Willis DO Analyst: Signed PELVIC (NON ) Observed: 09/28/2018 Status: F Source: [place] 1:17 PM [facility] Imaging Services [address] [place] [address] Pelvic (Non ) MR#: [id number] Acct: [id number] Name: CRYSTAL GRIFFITHS Rep #: [id number] : 1960 F 57 From: Asaf Brar MD PCP: Suzy Willis DO Status: REG CLI Study: Pelvic (Non ) Date of Exam: 09/28/18 Exam# [id number] Ordering Dr: Suzy Willis DO STUDY: ULTRASOUND [...] Service support , CC: Suzy Willis DO Analyst: Signed EMERGENCY DEPARTMENT Observed: 03/25/2018 Status: F Source: [place] SUMMARY 8:35 PM [facility] Medical Records Department [address] [place] [address] Emergency Department Summary 03/25/18 1936 MR#: [id number] Acct: [id number] Name: CRYSTAL GRIFFITHS Rep #: [id number] : 1960 57 From: Easton Hernandez MD [...] Impression: Fatigue This note was generated with SNRLabs dictation software. It may contain incorrect words, [...] your Primary Care Provider. Call [facility] ([phone]) or report to the closest Emergency Room. Call 911 if necessary. 03/25/182034 <Electronically signed by Easton Hernandez MD> Date Easton Hernandez MD Cosigner Signature (If Indicated): Date CC: Suzy Willis DO DISCHARGE INSTRUCTION Observed: 03/25/2018 Status: F Source: [place] 8:35 PM [facility] Medical Records Department [address] [address] Discharge Instruction 03/25/182033 MR#: [id number] Acct: [id number] Name: CRYSTAL GRIFFITHS Rep #: [id number] : 1960 57 From: Easton Hernandez MD PCP: Suzy Willis DO Status: REG ER ED Disposition - Plan for ED Patient: Disposition: Home or Assisted Living Chief Complaint: Fatigue Instructions: ED Weakness UKO Referrals: Suzy Willis, [Primary Care Provider] - What to do if you have Problems For any increased pain, shortness of breath, bleeding, nausea or vomiting, chest pain, or any unexpected problems, contact your Primary Care Provider. Call [facility] ([phone]) or report to the closest Emergency Room. Call 911 if necessary. 03/25/182034 <Electronically signed by Easton Hernandez MD> Date Easton Hernandez MD Cosigner Signature (If Indicated): Date CC: Suzy Willis DO URINALYSIS, COMPLETE Collected: 03/25/2018 Status: F Source: [place] 7:30 PM [facility] Order Comment: How was Urine Obtained? [...] URINE SEEN Performed By: #### L400.0001 #### [facility] [address] [place], [address] CBC W/DIFF, AUTOMATED Collected: 03/25/2018 Status: F Source: [place] 7:21 PM [facility] TYPE CODE TESTS RESULT OUT OF [...] Lymph 1.26 Performed By: #### L100.0100 #### [facility] [address] [place], [address] BASIC METABOLIC Collected: 03/25/2018 Status: F Source: [place] PROFILE (BMP) 7:21 PM [facility] RE[facility] TYPE CODE TESTS RESULT OUT OF [...] GAP 9 Performed By: #### L500.2500 #### [facility] [address] [place], [address] THYROID STIM HORMONE Collected: 03/25/2018 Status: F Source: [place] (TSH) 7:21 PM [facility] REPOS[facility] TYPE CODE TESTS RESULT OUT OF RANGE REFERENCE UNITS LAB L501.9520 0.358-3.74 uIU/mL Normal TSH 1.23 Performed By: #### L501.9520 #### [facility] [address] [place], [address] SCREENING MAMM (CAD), Observed: 11/09/2017 Status: F Source: [place] BILAT 8:27 AM [facility] REPOSITORY [facility] Imaging Services [address] [facility] [place] [address] SCREENING MAMM (CAD), BILAT MR#: [id number] Acct: [id number] Name: CRYSTAL GRIFFITHS Rep #: [id number] : 1960 F 57 From: Edmond Vale MD PCP: Suzy Willis DO Status: REG CLI Study: SCREENING MAMM (CAD), BILAT Date of Exam: 11/09/17 Exam# [id number] Ordering Dr: Suzy Willis DO MAMMOGRAPHY - [...] delay biopsy of a clinically suspicious abnormality. [id number] Electronically Signed: Edmond Vale MD at 10:58 EST Tel [phone], Service support , CC: Suzy Willis DO Analyst: Signed ALLERGIES ALLERGIES DATE TYPE / NAME / CODE REACTION SEVERITY SOURCE CODE 10/02/2018 Drug fluticasone syncope Unknown [place] Allergy/41 propionate/[id number] [facility] 2631773( 593(RXNORM) [facility]) Repository 10/02/2018 Drug salmeterol syncope Unknown [place] Allergy/41 xinafoate/[id number] [facility] 2618912( 37(RXNORM) [facility]) Repository 10/02/2018 Drug formoterol PALPITATIONS Unknown [place] Allergy/41 fumarate/[id number] [facility] 4106747( 2(RXNORM) [facility]) Repository 10/02/2018 Drug codeine/[id number] Nausea Unknown [place] Allergy/41 (RXNORM) Community 6806765([facility]) Repository 10/02/2018 Drug erythromycin Hives Unknown [place] Allergy/41 base/[id number]([facility] 1650439([place]) Repository 10/02/2018 Drug budesonide/[id number] PALPITATIONS Unknown [place] Allergy/41 214(RXNORM) [facility] 2420419([facility]) Repository ENCOUNTERS ENCOUNTERS ADMIT/DISCHARGE ACCOUNT ADMITTING ENCOUNTER LOCATION SOURCE NUMBER CLASS 10/06/2018 [id number] Ambulatory BMSBuilding:B [place] 2 [facility] Hospital Repository 10/05/2018 [id number] Ambulatory Building:[facility] Practices Repository 10/02/2018/ [id number] Emergency Messi Mess[place] 9 5 [facility] ing:ED Repository 09/28/2018 [id number] Ambulatory [place] 1 [facility] ing:OPUS Repository 09/22/2018 [id number] Ambulatory BMSBuilding:B Messi 1 MS.[facility] Repository 03/25/2018/ [id number] Emergency [place] 8 3 [facility] ing:ED Repository 11/09/2017 [id number] Ambulatory [place] Messi 9 [facility] ing:BI Repository PAYERS PAYERS ENCOUNTER GUARANTOR PAYER SUBSCRIBER SOURCE 10/06/2018 DREMA S [id number] Primary URBAN M Messi S SMYSER Insurance:ANTHEMPolic GRAYDOB: [facility] Number: [id number] [address]Zdg: 330 [id number] Repository [phone] () Date:1456-09-18[address] [address]TB: 10/06/2018 Secondary NOT GIVENUNK [place] Insurance:SELF PAY [facility] Number: Effective Repository Date:2018-10-06 10/05/2018 Drema S GrayDOB: Primary Drema S GrayDOB: [place]IP Practices Insurance:[place] [id number] Repository [facility] Number: [place], [place] [id number] [place], [place] [address]Lge: 330) Date:4309-36-48Vnbc 67[address]Yic: () Name:[facility] [phone] () [id number] [place] [id number]: 10/05/2018 Secondary Urban W OHIP Practices Insurance:[employer] GrayDOB: Repository InsurancePoly [id number] Number: Issa Espinoza [id number] [facility] [place] Date:2013-09-12 [address]Jqm: [phone]) 3050-05-35Zpat [phone] () Name:[address] [address]ZW: 10/02/2018 DREMA S [id number] Primary URBAN M Messi S SMYSER Insurance:ANTHEMPolic GRAYDOB: [place] Number: [id number] [facility] [address]Xby: (330) [id number] Repository [phone] () Date:7952-39-12NZ [address] [address]SM: 10/02/2018 Secondary NOT GIVENUNK [place] Insurance:SELF PAY [facility] Number: Effective Repository Date:2018-10-02 09/28/2018 DREMA S [id number] Primary URBAN M [place] S SMYSER Insurance:ANTHEMPolic GRAYDOB: [facility] [place] Number: [id number] Hospital [address]Nbk: (330) [id number] Repository [phone] () Date:7544-69-79FE [address] [address]EB: 09/28/2018 Secondary NOT GIVENUNK [place] Insurance:SELF PAY [facility] Number: Effective Repository Date:2018-09-25 09/22/2018 DREMA S [id number] Primary URBAN M Messi S SMYSER Insurance:ANTHEMPolic GRAYDOB: [facility] [place] Number: [id number] Hospital [address]Njj: (330) [id number] Repository [phone] () Date:[id number] [address]DV: 09/22/2018 Secondary NOT GIVENUNK [place] Insurance:SELF PAY [facility] Number: Effective Repository Date:2018-09-22 03/25/2018 Crystal Lo9 Primary URBAN M Messi S [place] Insurance:ANTHEMPolic GRAYDOB: [facility] [place]ley [place] y Number: [id number] Hospital [address]Lpt: 330 [id number] Repository [phone] () Date:1420-13-17[address] [place] [address]ZG: 03/25/2018 Secondary NOT GIVENUNK Messi Insurance:SELF PAY [facility] Number: Effective Repository Date:2018-03-25 11/09/2017 Crystal Lo9 Primary URBAN M [place] S [place] Insurance:ANTHEMPolic GRAYDOB: [facility] [place]ley [place] y Number: [id number] Hospital [address]Nva: 330 [id number] Repository [phone] () Date:3641-49-57[address] [place] [address]GT: 11/09/2017 Secondary NOT GIVENUNK Messi Insurance:SELF PAY [facility] Number: Effective Repository Date:2017-10-11
== END 2018-10-02 21:09 | disposition home or self-care (01) ==
PROVIDERS: Emergency Provider Emergency Medicine; Family Provider Internal Medicine; PCP Internal Medicine
DX: R42 Dizziness and giddiness (principal); R53.81 Other malaise; M79.18 Myalgia, other site; I10 Essential (primary) hypertension; E11.9 Type 2 diabetes mellitus without complications; I34.1 Nonrheumatic mitral (valve) prolapse; J45.909 Unspecified asthma, uncomplicated; Z79.84 Long term (current) use of oral hypoglycemic drugs; Z79.899 Other long term (current) drug therapy; Z79.51 Long term (current) use of inhaled steroids
CPT/HCPCS: 36415; 70450; 71046; 80053; 81001; 82962; 84484; 85027; 93005; 96360; 96361; 99284; J7030; A4216

== ENCOUNTER → 2018-10-09 13:14 | Outpatient (CLI) | payer BC, SELFPAY ==
[2018-10-02 16:06] VITALS: BMI 39.9
--- NOTE | 2018-10-09 13:20 | RAD_ITS ---
STUDY: X-RAY - RIGHT FOOT CLINICAL: Female, 58 years old. Heel pain without injury TECHNIQUE: 2 view(s) of the foot. COMPARISON: None. FINDINGS: There is a very tiny almost imperceptible plantar calcaneal spur. Unremarkable features of the plantar fascia aponeurosis. Intact proximal foot, normal appearance of the tarsal bones and intertarsal articulations. Normal appearance of the dome of the talus and tibiotalar articulation. Preserved arch of the foot. Heel pad soft tissues unremarkable. RAD/Calcaneus min 2 Views IMPRESSION: Tiny plantar calcaneal spur. Otherwise unremarkable calcaneus and proximal foot. Electronically Signed: Richard Mccallum MD at 17:48 EST Tel , Service support ,
== END ==
PROVIDERS: Family Provider Internal Medicine; PCP Internal Medicine; Referring Provider Internal Medicine; Visit Provider Internal Medicine
DX: M79.671 Pain in right foot (principal)
CPT/HCPCS: 73650

== ENCOUNTER → 2018-11-14 12:01 | Outpatient (CLI) | payer BC, SELFPAY ==
[2018-11-09 15:25] VITALS: BMI 39.9
--- NOTE | 2018-11-14 12:03 | BI_ITS ---
MAMMOGRAPHY - BILATERAL SCREENING REASON FOR EXAM: Female, 58 years old. Routine annual screening examination. PERTINENT HISTORY: Non-contributory. TECHNIQUE: Digital bilateral breast susan (3D mammographic acquisition) in the CC and MLO projections. 2-D mediolateral oblique (MLO) and craniocaudad (CC) views of both breasts were obtained. CAD: Full Field Digital Mammography with Computer Added Detection was performed. COMPARISON: Comparison is made with prior study dated November 09, 2017. FINDINGS: Breast Composition: There are scattered areas of fibroglandular density. There are no dominant masses or suspicious calcifications. Stable benign-appearing bilateral axillary lymph nodes. No other significant abnormalities are identified. There has been no significant change since the prior study. BI/SCREENING MAMM (CAD), BILAT IMPRESSION: Stable bilateral screening mammogram. Yearly follow-up mammogram recommended. (A) ASSESSMENT CATEGORY: BIRADS Category 2: Benign. A letter regarding these results will be sent to the patient by the facility within 30 days. Approximately 10% of breast cancers are not detected by mammography. A normal mammogram should not delay biopsy of a clinically suspicious abnormality. [id number] Electronically Signed: Edmond Vale, at 14:08 EST , Service support ,
--- NOTE | 2018-11-14 12:13 | BD_ITS ---
STUDY: DUAL ENERGY X-RAY ABSORPTIOMETRY / DXA REASON FOR EXAM: Female, 58 years old. The patient is postmenopausal. Loss of height. TECHNIQUE: Bone Mineral Density (BMD) measurements of lumbar spine and bilateral hips were obtained. COMPARISON: None. FINDINGS: Lumbar Spine (L1-L4): g/cm2 (1.051) / T-score (-1.2) / Z-score (0.0) Findings are suggestive of osteopenia with a low fracture risk. Left Femur Total: g/cm2 (1.061) / T-score (0.4) / Z-score (1.3) Left Femoral Neck: g/cm2 (0.979) / T-score (-0.4) / Z-score (0.8) Right Femur Total: g/cm2 (1.056) / T-score (0.4) / Z-score (1.3) Right Femoral Neck: g/cm2 (0.963) / T-score (-0.5) / Z-score (0.7) BD/Dexa Bone Density Study IMPRESSION: The patient is considered osteopenic as outlined below according to World Joseph Organization (WHO) criteria with a low fracture risk. Reference Information: The T-score is the number of standard deviations above or below the standard which is normal for young adults at their peak bone mineral density. The World Health Organization (WHO) interprets the T-scores as follows: Above -1 Normal bone density Between -1 and -2.5 Osteopenia Equal to / or below -2.5 Osteoporosis As a practical clinical guideline, osteopenia may be graded as follows: Mild -1 through -1.5 Moderate -1.6 through -2.0 Severe -2.1 through -2.4 The Z-score is the number of standard deviations above or below age-matched controls. A Z-score of less than -1.5 would be considered abnormal. References: 1. NIH Osteoporosis and Related Bone Diseases http://www.osteo.org 2. International Society for Clinical Densitometry http://www.iscd.org 3. National Osteoporosis Foundation http://www.nof.org Electronically Signed: Edmond Vale, at 13:30 EST , Service support ,
== END ==
PROVIDERS: Family Provider Internal Medicine; PCP Internal Medicine; Referring Provider Internal Medicine; Visit Provider Internal Medicine
DX: Z12.31 Encounter for screening mammogram for malignant neoplasm of breast (principal); Z78.0 Asymptomatic menopausal state
CPT/HCPCS: 77063; 77067; 77080

== ENCOUNTER → 2019-01-18 13:45 | Outpatient (CLI) | payer BC, SELFPAY ==
[2018-11-09 15:25] VITALS: BMI 39.9
== END ==
LOC: PSN 13:46
PROVIDERS: Family Provider Internal Medicine; PCP Internal Medicine; Referring Provider Internal Medicine; Visit Provider Internal Medicine
DX: R00.2 Palpitations (principal)
CPT/HCPCS: 93225; 93226

== ENCOUNTER → 2019-02-26 | Outpatient (CLI) | payer BC, SELFPAY ==
[2018-11-09 15:25] VITALS: BMI 39.9
--- NOTE | 2019-02-26 11:01 | RAD_ITS ---
STUDY: X-RAY - LUMBAR SPINE REASON FOR EXAM: Female, 58 years old. Back pain. TECHNIQUE: 5 view(s) of the lumbar spine were obtained. COMPARISON: None FINDINGS: Normal lumbar lordosis. There is no substantial scoliosis. There is a normal alignment of the vertebrae. Very minimal endplate spondylosis at L3-4. Normal disc space heights. There is no evidence of acute fracture or loss of vertebral axial height. There is no demonstrated spondylolysis of the pars interarticulares. The soft tissue structures are unremarkable. RAD/L/S Spine Min 4 Views IMPRESSION: Essentially normal lumbar spine. Electronically Signed: Silverio Bright DO at 23:57 EDT Tel [phone], Service support ,
--- NOTE | 2019-02-26 11:02 | RAD_ITS ---
STUDY: X-RAY - PELVIS AND RIGHT HIP REASON FOR EXAM: Female, 58 years old. Hip pain. TECHNIQUE: 3 views of the pelvis and hip. COMPARISON: CT abdomen and pelvis August 27, 2014. FINDINGS: There is a non-specific bowel gas pattern. Normal visualized soft tissue structures. Normal bilateral iliac wings, sacroiliac joints and visualized sacrum. Normal bilateral superior and inferior pubic rami. Normal pubic symphysis. Normal bilateral ischial tuberosities. Normal visualized right femoral head. Normal acetabulum. Normal hip joint. Left hip is grossly normal. RAD/HIP, UNI W/ Pelvis 2-3 Views IMPRESSION: Normal x-ray examination of the pelvis and right hip. Electronically Signed: Watson Rosa MD at 23:39 EDT , Service support ,
== END | disposition home or self-care (01) ==
LOC: HPRAD 10:57
PROVIDERS: Family Provider Internal Medicine; PCP Internal Medicine; Visit Provider Internal Medicine
DX: M54.5 Low back pain (principal); M25.551 Pain in right hip
CPT/HCPCS: 72110; 73502

== ENCOUNTER → 2019-04-09 | Outpatient (CLI) | payer SELFPAY ==
[2018-11-09 15:25] VITALS: BMI 39.9
--- NOTE | 2019-04-09 14:27 | CT_ITS ---
STUDY: CARDIAC CALCIUM SCORING - CT CHEST REASON FOR EXAM: Female, 58 years old. Coronary calcium screening, over read. Family history of coronary artery disease. RADIATION DOSAGE (If Supplied By Facility): DLP = ( 195.04 ) mGycm TECHNIQUE: Axial non-enhanced images were acquired through the heart for the sole purpose of measuring coronary artery calcium. Individualized dose optimization techniques were used for this CT. COMPARISON: None. FINDINGS: Body wall soft tissues: Morbid obesity, no acute process. Upper abdomen: No acute process. Osseous structures: Mild thoracic spondylosis. Mediastinum: No acute process. Lungs: Evaluated portions are normal. Aorta: Minimal atherosclerosis, nondilated. Pulmonary arteries: Nondilated. Heart: Normal cardiac size without pericardial effusion. The right and left coronary arteries each emerge from the appropriate coronary sinus with right coronary dominance to the PDA. No observed coronary calcium. CT/Limited Chest CT w/CCTA IMPRESSION: The coronary calcium score is reported under separate cover with cardiology. Please see that report. No acute thoracic abnormality is evident. Electronically Signed: Richard Mccallum MD at 9:26 EDT Tel , Service support ,
[2019-04-09 14:42] VITALS: BP 157/74; PULSE 66; RESP 18; O2SAT 95; BMI 39.4
--- NOTE | 2019-04-11 13:58 | CA.SCORE ---
Calcium Scoring Date of Study:: 04/09/19 Coronary Calcium Scoring: High-resolution Computed Tomographic imaging of the chest was performed on [04/09/2019], with particular attention paid to the coronary arteries. Images from the examination were analyzed for the presence and extent of coronary artery calcification , using coronary calcium quantification software. The patient tolerated the procedure well and there were no complications. The results of the coronary calcification analysis are provided below. - Findings Left Main (LM): 0 Left Anterior Descending (LAD): 0 Left Circumflex (LCX): 0 Right Coronary Artery (RCA): 0 Total Agatston Score: 0 Percentile Rankin - Conclusion Calcium Scoring Interpretation: 0 No identifiable atherosclerotic plaque. Very low cardiovascular disease risk. <5% chance of presence coronary artery disease A Negative Examination 1-10 Minimal Plaque burden. Significant coronary artery disease very unlikely. 11-100 Mild plaque burden. Likely mild or minimal coronary atherosclerosis. 101-400 Moderate plaque burden Moderate non-obstructive coronary artery disease highly likely. Over 400 Extensive plaque burden. High likelihood of at least one significant coronary stenosis (>50% diameter) The total calcium score (0%) is below the 23rd percentile for women between the ages of 60 and 64. (Exact percentile calculated to be 25%; this means 24% of the population has a similar calcium score and 75% of the population is a higher calcium score than this patient.) Full evaluation of cardiac risk including assessment of all conventional risk factors, and the scores and percentile rankings reported herein should be evaluated in this context.
== END | disposition home or self-care (01) ==
LOC: CT 14:24
PROVIDERS: Family Provider Internal Medicine; PCP Internal Medicine; Referring Provider Internal Medicine; Visit Provider Internal Medicine
DX: Z82.49 Family history of ischemic heart disease and other diseases of the circulatory system (principal)
CPT/HCPCS: 75571; 76380

== ENCOUNTER 2019-04-12 09:30 | Outpatient (RCR) | payer BC, SELFPAY ==
[2018-11-09 15:25] VITALS: BMI 39.9
--- NOTE | 2019-02-23 08:15 | HP.PTEVAL_ITS ---
Patient's Visit Information MICHELA GRIFFITHS is a 58 year old F referred to Physical Therapy by Suzy Willis DO with a diagnosis of BACK PAIN. Date of Evaluation: 02/23/19 Physical Therapist: Abiodun Velasquez, PT, Cert MDT, OCS - Visit Plan Frequency: 2x /Week Duration: 4 Weeks Plan: PT INTEVENTIONS PROGRESSION OF SILVER EX'S,DLS ,POSTURAL EX'S,MODALITIES FOR PAIN RELEIEVE - Subjective Findings: This 58 y/o female presents to physical therapy with back pain. 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 Patient seen DR 1 wk later,recommended muscle relaxer and tramadol. Recommended PT. Patient symptoms LBP and radiates lateral thigh. Described ache/sharp pain. Denies parathesia/tingling. Cooghing/sneezing +. Bowel/bladder -. Sleeping affects pain. No prior tx. Patient pain affects job demands/ ADL's /housework tasks. Pateint conditions affects QOL. SOCIAL: marrried. 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 GAIT: receiprocal pattern. NEURO: denies parathesai/tingling,reflexes L3-4,L4-5,L5-S1 2/3. SYMMTRIES: align. PALPATION: tender L1-2 -3 paraspinals. MMT: quads/hams 4/5,hip flexion 4- /5,ankle 5/5. LUMBAR ROM: flexion mod loss ,extension mod loss,side glides min loss pain with flexion. FLEXABILITY: hams WFL - Special Tests L/S Slump test left side: Negative L/S Slump test right side: Negative L/S Left Straight Leg Raise: Negative L/S Right Straight Leg Raise: Negative Lumbar Standing: Flexion - Symptoms During Testing: Increases Lumbar Standing: Flexion - Symptoms After Testing: Worse Lumbar Standing: Extension - Mechanical Response: No effect Lumbar Standing: Extension - Symptoms During Testing: Decreases Lumbar Standing: Extension - Symptoms After Testing: Better Comments:: HIP Lumbar Standing: Right Side Glides - Mechanical Response: No effect Lumbar Standing: Right Side [place] - Symptoms During Testing: No effect Lumbar Standing: Right Side [place] - Symptoms After Testing: No effect Lumbar Standing: Left Side [place] - Mechanical Response: No effect Lumbar Standing: Left Side [place] - Symptoms During Testing: No effect Lumbar Standing: Left Side [place] - Symptoms After Testing: No effect Lumbar Lying: Flexion - Mechanical Response: No effect Lumbar Lying: Flexion - Symptoms During Testing: Abolishes Lumbar Lying: Flexion - Symptoms After Testing: Better Lumbar Lying: Extension - Mechanical Response: No effect Lumbar Lying: Extension - Symptoms During Testing: Decreases Lumbar Lying: Extension - Symptoms After Testing: Better Comments:: HIP,INCREASES LUMBAR - Goals Goal 1:: Independant with HEP Goal Time Frame: 4-6 Weeks Goal 2:: Independant with posture/body mechanics Goal Time Frame: 4-6 Weeks Goal 3:: Decrease lumbra pain and radicular symptoms by 50% or greater to improve function. Goal Time Frame: 4-6 Weeks Goal 4:: Patient to improve lumbar ROM for function of recovery. Goal Time Frame: 4-6 Weeks Goal 5:: Patient to improve back owestry score by 5 points or greater to improve QOL. Goal Time Frame: 4-6 Weeks - Rehabilitation Potential Physical Therapy Diagnosis: This 58 y.o feyomi presents to physical therapy with derrangement in lumbar spi ne. with decrease lumbar ROM ,pain ,impairs ADL'S thus benifit from skilled PT. Rehabilitation Potential: Good - Anticipated Interventions Patient/Client Instruction: Educate patient on: Condition, Plan of Care For the Purpose of:: To decrease pain, To increase ROM, To improve muscle per formance and motor function, To improve ability to perform ADL's, To increase tolerance to activity/condition/position, To improve performance and independence with ADL's, To improve ability of physical actions for home/community/work/leisure, To improve health of tissue, To decrease soft tissue restriction, To increase flexibility/ROM, To reduce risk of recurrence, To improve ability to perform tasks related to life management Therapeutic Exercise to Include: Strength training, Postural training, Flexibilty training, Dynamic Lumbar Stabilization, Silver Exercises For the Purpose of:: To decrease pain, To increase ROM, To improve muscle performance and motor function, To improve ability to perform ADL's, To increase tolerance to activity/condition/position, To improve ability of physical actions for home/community/work/leisure, To improve health of tissue, To decrease soft tissue restriction, To increase flexibility/ROM, To improve ability to perform tasks related to life management TENS: Yes IF ES: Yes Cryotherapy (ice pack, ice massage): Yes Thermo therapy (hot pack): Yes Ultrasound (thermal/non thermal): Yes For the Purpose of:: To decrease pain, To increase ROM, To improve nutrient delivery to tissue, To increase oxygenation perfusion, To improve health of tissue, To decrease soft tissue restriction Thank you for the opportunity to evaluate your patient. For Medicare and Medicare HMO plans, please review the plan of care and approve it. It will need to be FAXED BACK to us at [phone] for Medicare purposes. For Medicare only, by signing this I certify the plan of care. Please let me know if there are questions or concerns regarding this plan of care. Physician Signature: Date:
--- NOTE | 2019-06-27 15:27 | HP.PTDCSUM ---
HP - PT D/C Summary It has been my pleasure to treat MICHELA GRIFFITHS under orders from Suzy Willis DO, for the diagnosis of BACK PAIN for a total of 9 visit(s). Discharge Date: 04/12/19 Please see the following information for a summary of their discharge status. - Subjective Subjective: Seen DR jennifer MRI in [place] . Also ,pain is intermttant in leg right side to thigh. Aymptoms aggraveting with any small movements - Pain Right Back Pain Intensity (Out of 10): 4 - Overall Improvement % Improvement: 30 - Objective Objective/Function: POSTURE: mild foward posture. PALAPTION; tender L-S. LUMBAR ROM: flexion min loss ,extension min loss .side glides min. MMT: qiads/hams 4/5,hip 4-/5 - Goals Goal 1:: Independant with HEP Goal Progress: Goal Met Goal 2:: Independant with posture/body mechanics Goal Progress: Goal Met Goal 3:: Decrease lumbra pain and radicular symptoms by 50% or greater to improve function. Goal Progress: Progressing Goal 4:: Patient to improve lumbar ROM for function of recovery. Goal Progress: Progressing Goal 5:: Patient to improve back owestry score by 5 points or greater to improve QOL. Goal Progress: Progressing - Plan Plan: PLAN FOR MRI - D/C Information Discharge Comments: MRI If there are questions or concerns regarding this patient's physical therapy, please feel free to call me at [phone]. Thank you for the referral of this patient. Sincerely, Abiodun Velasquez, PT, Cert MDT, OCS
== END 2019-04-12 19:00 | disposition home or self-care (01) ==
LOC: PT 09:30
PROVIDERS: Family Provider Internal Medicine; PCP Internal Medicine; Referring Provider Internal Medicine; Visit Provider Internal Medicine
DX: M54.9 Dorsalgia, unspecified (principal)
CPT/HCPCS: 97014; 97035; 97110; 97140; 97161; 97530; G0283

== ENCOUNTER → 2019-04-20 06:24 | Outpatient (CLI) | payer BC, SELFPAY ==
[2019-04-09 14:42] VITALS: BMI 39.4
--- NOTE | 2019-04-20 07:00 | MRI_ITS ---
STUDY: MRI LUMBAR SPINE WITHOUT CONTRAST REASON FOR EXAM: Female, 58 years old. Radiculopathy, lbp X 10 weeks, NKI. TECHNIQUE: Standardized fat and water weighted pulse sequences were obtained in the sagittal and axial planes. COMPARISON: X-ray dated February 26, 2019 FINDINGS: T12-L1: There is minimal disc space narrowing and endplate spondylosis. There is no significant disc herniation, central canal or foraminal stenosis. There is straightening of the normal lumbar lordosis. There is no substantial scoliosis. Normal conus medullaris that terminates at the L1 L1-2: There is minimal disc space narrowing and endplate spondylosis. There is no significant disc herniation, central canal or foraminal stenosis. L2-3: There is minimal disc space narrowing and endplate spondylosis. There is no significant disc herniation, central canal or foraminal stenosis. L3-4: There is mild disc space narrowing and endplates spondylosis. Minimal disc bulge without significant central canal or foraminal stenosis. L4-5: There is mild disc space narrowing and endplates spondylosis. Minimal disc bulge without significant central canal or foraminal stenosis. L5-S1: There is mild disc space narrowing and endplates spondylosis. Minimal disc bulge without significant central canal or foraminal stenosis. Normal visualized sacral ala. Normal visualized paraspinous soft tissue structures. MRI/Spine Lumbar (Routine) IMPRESSION: Mild degenerative changes. Electronically Signed: Morgan Carreno MD at 11:53 EDT Tel , Service support ,
== END ==
PROVIDERS: Family Provider Internal Medicine; PCP Internal Medicine; Referring Provider Internal Medicine; Visit Provider Internal Medicine
DX: M54.16 Radiculopathy, lumbar region (principal)
CPT/HCPCS: 72148

== ENCOUNTER → 2019-05-24 | Outpatient (CLI) | payer BC, SELFPAY ==
[2019-04-09 14:42] VITALS: BMI 39.4
--- NOTE | 2019-05-24 12:56 | RAD_ITS ---
STUDY: X-RAY - PELVIS AND RIGHT HIP REASON FOR EXAM: Female, 58 years old. Pain. TECHNIQUE: 3 views of the pelvis and hip. COMPARISON: None. FINDINGS: There is a non-specific bowel gas pattern. Normal visualized soft tissue structures. Normal bilateral iliac wings, sacroiliac joints and visualized sacrum. Normal bilateral superior and inferior pubic rami. Normal pubic symphysis. Normal bilateral ischial tuberosities. Normal visualized right femoral head. Normal right acetabulum. There is mild articular joint space narrowing of the right hip. RAD/HIP, UNI W/ Pelvis 2-3 Views IMPRESSION: Mild degenerative changes of the right hip. Electronically Signed: Silverio Bright DO at 23:35 EDT Tel [phone], Service support ,
== END | disposition home or self-care (01) ==
LOC: HPRAD 12:52
PROVIDERS: Family Provider Internal Medicine; PCP Internal Medicine; Referring Provider Anesthesiology Pain Medicine; Visit Provider Anesthesiology Pain Medicine
DX: M25.551 Pain in right hip (principal)
CPT/HCPCS: 73502

== ENCOUNTER → 2019-07-05 | Outpatient (CLI) | payer BC, SELFPAY ==
[2019-04-09 14:42] VITALS: BMI 39.4
--- NOTE | 2019-07-05 16:32 | CT_ITS ---
STUDY: CT CHEST WITHOUT CONTRAST REASON FOR EXAM: Female, 58 years old. Hemoptysis RADIATION DOSAGE (If Supplied By Facility): CTDIvol = ( 16.79 ) mGy, DLP = ( 565.65 ) mGycm TECHNIQUE: Transaxial imaging was performed without the administration of intravenous contrast material. Individualized dose optimization techniques were used for this CT. COMPARISON: 09 April 2019, 28 December 2016, 29 Jan 2016 FINDINGS: Examination is limited due to lack of IV contrast. Assessment of vascular or soft tissue pathology, such as mediastinal or hilar is limited. Detection of etiology of hemoptysis is not possible without IV contrast. Some diagnostic information is available. Airways are patent. Lungs are clear. Pleural surfaces are intact. Evaluation of mediastinal contents is limited without unremarkable noncontrast appearance. Cardiac chambers are normal in size and shape. Pericardium is normal. Main, right and left pulmonary arteries are of normal size. Jessica are evaluated in the limited fashion. Upper abdominal structures are unremarkable. Osseous structures are intact. CT/Chest without Contrast IMPRESSION: 1. Unremarkable noncontrast CT chest. 2. Limited ability to detect etiologies causing hemoptysis such as bronchial vascular lesions. If imaging evaluation of hemoptysis is necessary CT of the chest with contrast in the study of choice. Electronically Signed: Ct Elder, at 16:56 EDT Tel , Service support ,
[2019-07-07 16:07] LABS: Creatine Kinase MB 0 % (0-3); Creatine Kinase MM 98 % (97-100); Creatine Kinase,Total,Serum 1568 U/L (24-173); Macro II 0 % (Not Observed)
[2019-07-09 10:32] LABS: Creatine Kinase BB 0 % (0); Macro I 2 % (Not Observed)
== END | disposition home or self-care (01) ==
PROVIDERS: Family Provider Internal Medicine; PCP Internal Medicine; Referring Provider Internal Medicine; Visit Provider Internal Medicine
DX: M79.603 Pain in arm, unspecified (principal); R04.2 Hemoptysis
CPT/HCPCS: 71250; 82550; 82552

== ENCOUNTER → 2019-09-10 15:07 | Outpatient (CLI) | payer BC, SELFPAY ==
[2019-04-09 14:42] VITALS: BMI 39.4
[2019-09-10 16:05] LABS: CPK Total, Creatine Kinase 197 U/L (26-192)
== END ==
PROVIDERS: Family Provider Internal Medicine; PCP Internal Medicine; Referring Provider Internal Medicine; Visit Provider Internal Medicine
DX: R74.8 Abnormal levels of other serum enzymes (principal)
CPT/HCPCS: 82550

== ENCOUNTER → 2020-04-28 | Outpatient (CLI) | payer BC, SELFPAY ==
[2019-04-09 14:42] VITALS: BMI 39.4
--- NOTE | 2020-04-28 16:20 | CT_ITS ---
STUDY: CTA CHEST REASON FOR EXAM: Female, 59 years old. SOB/? PE. Hx of asthma, diabetes, HTN and cervical cancer. RADIATION DOSAGE (If Supplied By Facility): CTDIvol = ( 12.50 ) mGy, DLP = ( 510.48 ) mGycm TECHNIQUE: The examination was performed with the intravenous administration of Isovue 370 100ml. Post-processing of the angiographic images was performed, with multiplanar reformation and 3D reconstruction. Individualized dose optimization techniques were used for this CT. COMPARISON: 07/05/2019 FINDINGS: Normal enhancement of the main pulmonary artery and right and left pulmonary arteries. Normal enhancement of the bilateral peripheral pulmonary arteries. There is no demonstrated pulmonary embolism. Normal thoracic aorta and visualized great vessels. There is no demonstrated aortic dissection. Normal heart and pericardium. Normal mediastinum. Normal hilar regions. Normal visualized trachea and bronchi. The lungs are well expanded. Normal pulmonary parenchyma. Normal pleura. Normal chest wall structures. Normal osseous structures. Normal visualized upper abdomen. CT/CTA Chest W/WO Contrast IMPRESSION: Normal CTA chest examination, without a demonstrated pulmonary embolism or aortic dissection. Electronically Signed: Carlos A Gonzalez MD at 17:15 EDT Tel , Service support ,
[2020-04-28 16:46] LABS: CREATININE FINGERSTICK 0.6 mg/dL (0.55-1.02); EGFR FINGERSTICK > 60.0000 mL/min (>60)
== END | disposition home or self-care (01) ==
LOC: CT 16:16
PROVIDERS: PCP Internal Medicine; Visit Provider Internal Medicine
DX: R06.02 Shortness of breath (principal)
CPT/HCPCS: 71275; Q9967

== ENCOUNTER → 2020-12-22 09:56 | Outpatient (CLI) | payer BC, SELFPAY ==
[2019-04-09 14:42] VITALS: BMI 39.4
--- NOTE | 2020-12-22 10:02 | ECHOD_ITS ---
Reason For Study: CAD Procedure This was a 2D Doppler, Color Flow transthoracic echocardiogram. Exam performed in department. Left Ventricle Normal LV size. Left ventricular systolic function is normal. The estimated ejection fraction is 53 %. Stage 1 diastolic dysfunction. No regional wall motion abnormalities noted. Right Ventricle Normal RV size. Normal systolic function. Atria Normal left atrium. Normal right atrium. Mitral Valve Normal mitral valve. Tricuspid Valve Normal tricuspid valve. Aortic Valve Normal aortic valve. Trisinus/trileaflet aortic valve. Pulmonic Valve Normal pulmonic valve. Great Vessels Normal aortic root. The pulmonary artery is normal size. Normal inferior vena cava. Pericardium/Pleural No pericardial effusion. MMode/2D Measurements & Calculations LVIDd: 3.8 cm IVSd: 0.94 cm Ao root diam: 2.7 cm LVIDs: 2.5 cm LVPWd: 1.0 cm RVDd: 3.2 cm FS: 34.6 % LAV(MOD-bp): 49.2 ml LVAd ap4: 24.2 cm2 SV(MOD-sp4): 42.3 ml LAV(MOD-bp) Indexed: 24.9 ml/m2 EDV(MOD-sp4): 66.4 ml LAV(MOD-sp2): 58.9 ml EDV(sp4-el): 67.3 ml LAV(MOD-sp4): 37.9 ml LVAs ap4: 13.4 cm2 ESV(MOD-sp4): 24.1 ml ESV(sp4-el): 22.7 ml EF(MOD-sp4): 63.7 % EF(sp4-el): 66.3 % SV(sp4-el): 44.6 ml LA A4 area: 15.7 cm2 LA dimension(2D): 3.1 cm RA A4 area: 11.0 cm2 Doppler Measurements & Calculations MV E max justin: 63.2 cm/sec Lat Peak E' Justin: 9.2 cm/sec Med Peak E' Justin: 7.4 cm/sec MV A max justin: 81.5 cm/sec E/E' lat: 6.8 E/E' med: 8.6 MV E/A: 0.78 Ao V2 max: 139.6 cm/sec LV V1 max: 104.3 cm/sec PA V2 max: 78.2 cm/sec Ao max P.8 mmHg LV V1 max P.3 mmHg ECHO/Echo Complete Interpretation Summary Normal LV size. Left ventricular systolic function is normal. The estimated ejection fraction is 53 %. Stage 1 diastolic dysfunction. Ordering Physician: Suzy Willis Referring Physician: Suzy Willis Performed By: Ross, Louisa, RDCS
== END ==
LOC: CVS 09:58
PROVIDERS: PCP Internal Medicine; Referring Provider Internal Medicine; Visit Provider Internal Medicine
DX: I25.10 Atherosclerotic heart disease of native coronary artery without angina pectoris (principal); I49.8 Other specified cardiac arrhythmias
CPT/HCPCS: 93225; 93226; 93306

== ENCOUNTER 2022-11-07 15:32 | Emergency (ER) | payer MEDICAID, SELFPAY ==
[2022-11-07 15:32] VITALS: BP 171/90; PULSE 80; RESP 14; TEMP 36.9; O2SAT 100; BMI 37.2
--- NOTE | 2022-11-07 15:41 | EKG12_ITS ---
Test Reason : CP Blood Pressure : / mmHG Vent. Rate : 076 BPM Atrial Rate : 076 BPM P-R Int : 156 ms QRS Dur : 090 ms QT Int : 386 ms P-R-T Axes : 047 040 064 degrees QTc Int : 434 ms Normal sinus rhythm Nonspecific ST abnormality Abnormal ECG Confirmed by GAIL RIVERA, VETO ([id number]), brands editor FAVIO LAWS ([id number]) on 11/09/2022 9:43:45 AM Referred By: Confirmed By:VETO REYNOLDS MD
--- NOTE | 2022-11-07 15:44 | EX.ED.DYSGE1 ---
HPI <TA Lee - Last Filed: 11/07/22 19:10> History of Present Illness Chief Complaint: Chest Pain Narrative Narrative: Patient is a 62-year-old Fe with history of diabetes, hypertension, lipidemia who presents to the emergency department with intermittent chest discomfort that has been ongoing for last 3 to 4 days. Patient states that she has been working out heavily for the last 1.5 months. She is lost a total of 20 pounds. She states over the last several weeks has been under a great deal of stress. Unfortunately her brother today. She continues to have shooting pains in her chest and she is here for evaluation. She denies any shortness of breath. She denies any cough, fever, chills, infectious-like symptoms. She denies any recent travel. [facility] <TA Lee - Last Filed: 11/07/22 19:10> [facility] Medical History (Updated 11/07/22 @ 17:37 by TA Lee) Active asthma Cervical cancer Coronary artery disease Diabetes mellitus type 2, controlled, without complications Fibromyalgia Argelia's disease Hypercholesteremia Hyperlipemia Mitral valve prolapse Osteoarthritis Home Medications atenolol 25 mg tablet 12.5 mg PO BID 11/07/13 [History Last Taken 12/28/16] montelukast 10 mg tablet 10 mg PO DAILY 11/07/13 [History Last Taken Unknown] metformin 500 mg tablet 500 mg PO BIDCM 12/28/16 [History Last Taken 12/28/16] levothyroxine 25 mcg tablet 25 mcg PO DAILY 11/09/18 [History Last Taken Unknown] Allergy/AdvReac Type Severity Reaction Status Date / Time budesonide [From Symbicort] Allergy PALPITATION Verified 11/07/22 15:34 S codeine Allergy Nausea Verified 11/07/22 15:34 erythromycin base Allergy Hives Verified 11/07/22 15:34 [Erythromycin Base] fluticasone propionate Allergy SYNCOPE Verified 11/07/22 15:34 [From Advair Diskus] formoterol fumarate Allergy PALPITATION Verified 11/07/22 15:34 [From Symbicort] S salmeterol xinafoate Allergy SYNCOPE Verified 11/07/22 15:34 [From Advair Diskus] Surgical History H/O dilation and curettage H/O tubal ligation History of tonsillectomy Social History (Updated 11/11/18 @ 06:[address] Niki Ventura MD) number of children: 3 current occupational status: unemployed Smoking Status: Current every day smoker tobacco type: cigarettes alcohol intake: never substance use type: does not use caffeine: Yes Type: coffee Number of servings: 5 what type of physical activity do you participate in: none additional social history: [employer] Patient is retired ROS <TA Lee - Last Filed: 11/07/22 19:10> ROS ED ROS Narrative Constitutional: Negative for fever, chills, weight loss, weakness Eyes: Negative for vision loss, vision change, double vision ENT: Negative for any sore throat, ear pain, congestion Cardiovascular: Negative for any tightness, palpitations. Positive for chest pain Respiratory: Negative for any cough, sputum production, hemoptysis, dyspnea, dyspnea on exertion, orthopnea Gastrointestinal: Negative for any abdominal pain, nausea, vomiting, diarrhea, constipation, blood in stool, blood in vomit : Negative for any urinary frequency, dysuria, retention, blood in urine Muscle skeletal: Negative for any muscle joint pain, stiffness, myalgias, arthralgias, neck pain, back pain Neurological: Negative for any headache, syncope, numbness or tingling, dizziness Skin: Negative for any rashes, lumps, itching, abrasions, lacerations Psychiatric: Negative for any depression, suicidal ideation, homicidal ideation. Positive for increased stress, anxiety Hematologic: Negative for any easy bruising, excessive bruising, easy bleeding Allergies: Negative for any eczema, hives, rash EXAM <TA Lee - Last Filed: 11/07/22 19:10> Physical Exam Narrative Exam Narrative: Vital signs reviewed. HEET: Head normocephalic atraumatic, TMs clear bilaterally. Posterior pharynx is clear, moist mucous membranes. Nares clear bilaterally. Neck: Supple with no lymphadenopathy or tenderness. No signs of meningismus, negative jolt sign. Cardiac: Regular rate and rhythm no murmurs gallops or rubs, equal peripheral pulses bilaterally. Respiratory: Lungs clear to auscultation bilaterally. No chest tenderness. Abdomen: Soft, nontender, nondistended. No abdominal bruit or pulsatile masses. No hepatosplenomegaly Extremities: No peripheral edema, no signs of gross trauma or deformity. Active full range of motion of all extremities. Neuro: Cranial nerves II through XII intact, no focal neurological deficits. Skin: Clean dry and intact with no rash, purpura, petechiae, vesicles or pustules. Backs/flank: No CVA tenderness, no midline spinal tenderness, no deformity. Psych: Normal mood and affect. No SI, HI or acute psychosis. Const Vital Signs: 11/07/22 15:32 11/07/22 15:43 11/07/22 15:43 Temperature 98.4 F Temperature Source Temporal Pulse Rate 80 Respiratory Rate 14 Respiratory Effort Normal Non-Labored Blood Pressure 171/90 H Blood Pressure Mean 117 Pulse Ox 100 Oxygen Delivery Method Room Air Room Air 11/07/22 17:20 11/07/22 19:25 Temperature Temperature Source Pulse Rate 60 71 Respiratory Rate 16 16 Respiratory Effort Blood Pressure 143/94 H 158/94 H Blood Pressure Mean 110 Pulse Ox 96 98 Oxygen Delivery Method Room Air Positive well nourished and well developed General Appearance ED: well developed <Asaf Partida MD - Last Filed: 11/08/22 00:01> Physical Exam Const Vital Signs: 11/07/22 15:32 11/07/22 15:43 11/07/22 15:43 Temperature 98.4 F Temperature Source Temporal Pulse Rate 80 Respiratory Rate 14 Respiratory Effort Normal Non-Labored Blood Pressure 171/90 H Blood Pressure Mean 117 Pulse Ox 100 Oxygen Delivery Method Room Air Room Air 11/07/22 17:20 11/07/22 19:25 Temperature Temperature Source Pulse Rate 60 71 Respiratory Rate 16 16 Respiratory Effort Blood Pressure 143/94 H 158/94 H Blood Pressure Mean 110 Pulse Ox 96 98 Oxygen Delivery Method Room Air MDM <TA Lee - Last Filed: 11/07/22 19:10> MDM Lab Data Attestation: I reviewed the patient's lab results. Labs: Laboratory Results - last 24 hr 11/07/22 11/07/22 11/07/22 15:49 15:49 18:30 WBC 6.1 RBC 4.91 Hgb 14.7 Hct 45.7 MCV 93.1 MCH 29.9 MCHC 32.2 RDW Std Deviation 45.4 H RDW Coeff of Thi 13.2 Plt Count 213 MPV 11.2 Immature Gran % (Auto) 0.300 Neut % (Auto) 65.2 Lymph % (Auto) 24.5 Eaton % (Auto) 7.7 Eos % (Auto) 1.6 Baso % (Auto) 0.7 Absolute Neuts (auto) 4.0 Absolute Lymphs (auto) 1.49 Nucleated RBC % 0 Sodium 140 Potassium 3.9 Chloride 102 Carbon Dioxide 27.0 Anion Gap 11 BUN 7 Creatinine 0.74 Estim Creat Clear Calc 57.96 Est GFR (MDRD) Af Amer 102 Est GFR (MDRD) Non-Af 84 BUN/Creatinine Ratio 9.5 L Glucose 109 H Calcium 10.4 H Troponin I High Sens 8 7 Radiography Diagnostic Testing: Clinical Impression(s) from Imaging Studies Chest X-Ray 11/07/22 16:05 IMPRESSION: No radiographic evidence of acute cardiopulmonary disease. Electronically Signed: Watson Desai MD at 16:21 EST , EKG Normal sinus rhythm: Attestation: I personally reviewed and interpreted this EKG as follows: Interpretation: Sinus Rhythm Comments: Normal sinus rhythm, rate of 76 bpm WV interval 156 ms, QRS duration 90 ms, no acute ST elevation, no acute infarct noted. Treatment and Re-Evaluation Narrative: All radiologic examinations were read, reviewed by the emergency department attending. From these reads, a plan of care will be put in place. Patient appears generally well, patient is in no distress. Patient's vital signs normalized. Patient presents to the emergency department with intermittent chest pain that come and go over the last 3 to 4 days. Patient also has been dealing with a lot of stress in her family, her brother did pass away today. She states that she just would like to get checked. Patient's physical examination was grossly unremarkable, EKG was unremarkable. Patient did receive a full cardiac work-up chest x-ray was unremarkable. Patient's laboratory studies showed normal CBC, chemistries were unremarkable, patient had 2 negative high-sensitivity troponins. There is no evidence suspect any ACS, [place], pneumothorax, pneumonia. Patient is likely dealing with multiple stressors. On reassessment, the patient was in no distress, no chest pain. Patient will follow-up closely with her PCP. She is happy with the plan of care and was given return precaution <Asaf Partida MD - Last Filed: 11/08/22 00:01> [facility] MDM Narrative Medical decision making narrative: I have personally performed a face to face assessment of the patient and have reviewed the JERRELL Note. I performed a substantive portion of the visit including all aspects of the following. My mai findings include: History is chest pain. Intermittent. Recent of brother. Exam is afebrile. Vital signs noted. Regular rate and rhythm. Lungs clear to auscultation bilaterally. Abdomen soft and nontender. Medical Decision Making check EKG. Check chest x-ray. Check laboratory work. Check delta troponin. Discharge. Follow-up primary care versus cardiology. Other additions or changes: [None] Lab Data Labs: Laboratory Results - last 24 hr 11/07/22 11/07/22 11/07/22 15:49 15:49 18:30 WBC 6.1 RBC 4.91 Hgb 14.7 Hct 45.7 MCV 93.1 MCH 29.9 MCHC 32.2 RDW Std Deviation 45.4 H RDW Coeff of Thi 13.2 Plt Count 213 MPV 11.2 Immature Gran % (Auto) 0.300 Neut % (Auto) 65.2 Lymph % (Auto) 24.5 Eaton % (Auto) 7.7 Eos % (Auto) 1.6 Baso % (Auto) 0.7 Absolute Neuts (auto) 4.0 Absolute Lymphs (auto) 1.49 Nucleated RBC % 0 Sodium 140 Potassium 3.9 Chloride 102 Carbon Dioxide 27.0 Anion Gap 11 BUN 7 Creatinine 0.74 Estim Creat Clear Calc 57.96 Est GFR (MDRD) Af Amer 102 Est GFR (MDRD) Non-Af 84 BUN/Creatinine Ratio 9.5 L Glucose 109 H Calcium 10.4 H Troponin I High Sens 8 7 Radiography Diagnostic Testing: Clinical Impression(s) from Imaging Studies Chest X-Ray 11/07/22 16:05 IMPRESSION: No radiographic evidence of acute cardiopulmonary disease. Electronically Signed: Watson Desai MD at 16:21 EST , Discharge Plan Triage Chief Complaint: Chest Pain ED Midlevel Provider: Ruben Koenig ED Provider: Asaf Partida Dx/Rx/DC Orders Clinical Impression: Chest pain, Stress Instructions: Causes and Effects of Stress, ED Chest Pain, Uncertain Cause Prescriptions: No Action levothyroxine 25 mcg tablet 25 mcg PO DAILY atenolol 25 MG tablet 12.5 mg PO BID montelukast 10 MG tablet 10 mg PO DAILY metformin 500 MG tablet 500 mg PO BIDCM Primary Care Provider: Anny Don Referrals: Suzy iWllis DO [Med [facility] - [employer]] - Activity Restrictions/Additional Instructions: Please follow-up outpatient. Follow-up with your PCP. Disposition Disposition: Home, Self Care Discharge Date/Time: 11/07/22 19:26
[2022-11-07] MEDS: Aspirin 81 MG TAB.CHEW 324 MG PO (15:53)
[2022-11-07 15:58] LABS: Absolute Lymphocyte Count 1.49 X10^3/uL (0.83-4.51); Basophil# 0.04 X10^3/uL; Basophil% 0.7 % (0-1); Eosinophils% 1.6 % (0-5); Hematocrit 45.7 % (37-47); Hemoglobin 14.7 g/dL (12.0-15.0); Lymphocyte # 1.49 X10^3/ul (0.83-4.51); Lymphocyte % 24.5 % (19-41); Mean Corp Hgb Conc 32.2 g/dL (32-36); Mean Corpuscular Hgb 29.9 pg (27.0-32.0); Mean Corpuscular Volume 93.1 fL (81-99); Mean Platelet Vol. 11.2 fl (6.2-12.0); Monocyte# 0.47 X10^3/uL; Monocyte% 7.7 % (0-10); NRBC Flagged by Analyzer 0 % (0-5); Neutrophil # 3.95 X10^3/uL (2.7-7.7); Neutrophil % 65.2 % (47-70); Platelet Count 213 K/mm3 (150-450); RBC Distribution Width CV 13.2 % (11.6-14.6); RBC Distribution Width SD 45.4 fl (35.1-43.9); Red Blood Count 4.91 M/mm3 (4.2-5.4); White Blood Count 6.1 K/mm3 (4.4-11.0)
--- NOTE | 2022-11-07 16:05 | RAD_ITS ---
INDICATION: chest pain EXAMINATION/TECHNIQUE: X-RAY - portable upright AP chest x-ray COMPARISON: None. FINDINGS: LINES/DEVICES: None. LUNGS: No consolidation, edema or effusion. No pneumothorax. MEDIASTINUM AND CARDIOVASCULAR STRUCTURES: Cardiac silhouette not enlarged. Central airways and mediastinal contour are unremarkable. BONES AND SOFT TISSUES: Unremarkable. RAD/Chest 1 View (Portable) IMPRESSION: No radiographic evidence of acute cardiopulmonary disease. Electronically Signed: Watson Desai MD at 16:21 EST ,
[2022-11-07 16:16] LABS: Anion Gap 11 (5-15); BUN 7 mg/dL (7-18); BUN/Creat Ratio 9.5 RATIO (10-20); Calcium,Total 10.4 mg/dL (8.5-10.1); Chloride 102 mmol/L (98-107); Creatinine, Serum 0.74 mg/dL (0.55-1.02); EST Glomerular Filtration Rate 84 mL/min (>60); Est Glom Filt Rate - Afr Amer 102 mL/min (>60); Estimated Creatinine Clearance 57.96 ml/min; Glucose 109 mg/dL (74-106); Potassium 3.9 mmol/L (3.5-5.1); Sodium Level 140 mmol/L (136-145); Troponin-I HS (w/2H Reflex) 8 pg/mL (3.0-54.0)
[2022-11-07 17:20] VITALS: BP 143/94; PULSE 60; RESP 16; O2SAT 96
[2022-11-07 17:54] LABS: Reflex Troponin-HS? (from REC) Y
[2022-11-07 18:52] LABS: Troponin-I HS 7 pg/mL (3.0-54.0)
[2022-11-07 19:25] VITALS: BP 158/94; PULSE 71; RESP 16; O2SAT 98
== END 2022-11-07 19:26 | disposition home or self-care (01) ==
PROVIDERS: Nurse Practitioner; Emergency Provider Emergency Medicine; PCP Internal Medicine; Visit Provider Emergency Medicine
DX: R07.9 Chest pain, unspecified (principal); E11.9 Type 2 diabetes mellitus without complications; I10 Essential (primary) hypertension; E78.00 Pure hypercholesterolemia, unspecified; I25.10 Atherosclerotic heart disease of native coronary artery without angina pectoris; Z63.32 Other absence of family member
CPT/HCPCS: 36415; 71045; 80048; 84484; 85025; 93005; 99285; A4216

== ENCOUNTER 2024-04-05 13:57 | Emergency (ER) | payer MEDICARE, SELFPAY ==
[2024-04-05 13:58] VITALS: BP 197/88; PULSE 59; RESP 18; TEMP 35.9; O2SAT 98; BMI 33.8
[2024-04-05 14:06] VITALS: BP 197/88; PULSE 59; RESP 18; TEMP 35.9; O2SAT 98
--- NOTE | 2024-04-05 15:16 | EKG12_ITS ---
Test Reason : SOB Blood Pressure : / mmHG Vent. Rate : 061 BPM Atrial Rate : 061 BPM P-R Int : 168 ms QRS Dur : 112 ms QT Int : 432 ms P-R-T Axes : 029 019 052 degrees QTc Int : 434 ms Normal sinus rhythm Normal ECG Confirmed by LIZ RIVERA, LUANA ([id number]), scientific publications editor NARGIS MIMS ([id number]) on 04/10/2024 1:57:41 PM Referred By: Confirmed By:MEKA HILL MD
--- NOTE | 2024-04-05 15:17 | EDS_ITS ---
HPI History of Present Illness Chief Complaint: General Illness Narrative Narrative: 63 female presenting with palpitations and bradycardia. Patient states she has a history of sinus bradycardia in the past. Patient states that she started having symptoms of COVID on Tuesday and she took a home test which was positive. She has been recovering but is not always back to normal. She little bit of shortness of breath. Coughing is improved. Her fevers and chills have improved. Patient states he has been drinking a lot of water. Patient does not have any oxazolam. Patient states that she called her primary care physician to get an appointment and she referred her to the ER. She also told the patient to hold her atenolol due to the bradycardia. She uses for her blood pressure apparently and her blood pressure is elevated. No headache, blurred vision. [facility] Medical History Diabetes mellitus type 2, controlled, without complications Hypercholesteremia Hyperlipemia Coronary artery disease Mitral valve prolapse Active asthma Osteoarthritis Fibromyalgia Cervical cancer Argelia's disease Home Medications ?Medication ?Instructions ?Recorded ?Last Taken ?Type atenolol 25 mg tablet 12.5 mg PO BID 11/07/13 12/28/16 History montelukast 10 mg tablet 10 mg PO DAILY 11/07/13 Unknown History metformin 500 mg tablet 500 mg PO BIDCM 12/28/16 12/28/16 History levothyroxine 25 mcg tablet 25 mcg PO DAILY 11/09/18 Unknown History Allergy/AdvReac Type Severity Reaction Status Date / Time budesonide (From Symbicort) Allergy PALPITATION Verified 04/05/24 14:00 S codeine Allergy Nausea Verified 04/05/24 14:00 erythromycin base Allergy Hives Verified 04/05/24 14:00 (Erythromycin Base) fluticasone propionate (From Allergy SYNCOPE Verified 04/05/24 14:00 Advair Diskus) formoterol fumarate (From Allergy PALPITATION Verified 04/05/24 14:00 Symbicort) S salmeterol xinafoate (From Allergy SYNCOPE Verified 04/05/24 14:00 Advair Diskus) Surgical History H/O dilation and curettage History of tonsillectomy H/O tubal ligation Social History number of children: 3 current occupational status: unemployed Smoking Status: Current every day smoker tobacco type: cigarettes alcohol intake: never substance use type: does not use caffeine: Yes Type: coffee Number of servings: 5 what type of physical activity do you participate in: none additional social history: [employer] Patient is retired ROS ROS ED Constitutional Constitutional ED: Denies chills, fever(s) or sweats Eyes Eyes: Denies blurry vision or change in vision ENT ENT ED: Denies ear pain or sore throat Cardiovascular Cardiovascular: Reports palpitations and other Details: Lightheadedness ; Denies chest pain or racing heartbeat Respiratory/Chest Respiratory/Chest: Reports dyspnea; Denies cough or sputum Gastrointestinal Gastrointestinal: Denies abdominal pain, constipation, diarrhea, nausea or vomiting Genitourinary Genitourinary ED: Denies dysuria, hematuria or urinary frequency Musculoskeletal Musculoskeletal: Denies arthralgias, myalgias or neck pain Integumentary Denies abscess, Abrasions or rash Neurologic Neurologic: Denies headache(s), paresthesias or weakness Psychiatric Psychiatric: Denies anxiety, depression, suicidal ideation or suicidal thoughts Endocrine Endocrinology: Denies polydipsia or polyuria EXAM Physical Exam Const Vital Signs: 04/05/24 13:58 04/05/24 14:06 04/05/24 15:21 Temperature 96.6 F L 96.6 F L Temperature Source Temporal Temporal Pulse Rate 59 L 59 L Respiratory Rate 18 18 Respiratory Effort Non-Labored Blood Pressure 197/88 H 197/88 H Blood Pressure Mean 124 124 Pulse Ox 98 98 Oxygen Delivery Method Room Air Room Air 04/05/24 15:39 04/05/24 15:57 Temperature Temperature Source Pulse Rate 58 L Respiratory Rate 12 Respiratory Effort Blood Pressure 156/78 H Blood Pressure Mean 104 Pulse Ox 98 95 Oxygen Delivery Method Room Air Room Air Positive well nourished General Appearance ED: NAD; Negative for pallor HEENT Reports moist mucous membranes Eyes PERRL and EOMs intact bilaterally Chest Wall inspection of chest normal Resp normal respiratory effort and clear to auscultation bilaterally Auscultation: Negative for rales, rhonchi or wheezes Cardio regular rate and regular rhythm Extremity normal to inspection Neuro oriented x3 and CN's II-XII intact bilaterally Sensorium / Orientation: alert Motor Exam: strength 5/5 throughout Psych mental status grossly normal Skin no rashes or lesions noted and no wounds General Skin Exam: Negative for jaundice or pallor MDM MDM MDM Narrative Medical decision making narrative: Patient presenting with bradycardia. She states he has a history of sinus bradycardia in the past. He is on atenolol 12.5 mg p.o. twice daily and her PCP told her to hold this and come to the emergency room. Patient has been drinking lots of water. She is able to eat and drink normally. She does have some shortness of breath but she states she is always short of breath and she has a history of asthma. Lungs are clear to auscultation bilaterally. Heart rate is 59 bpm with a regular rhythm. Differential includes but is not limited to ACS, COVID, pneumonia, muscle strain, costochondritis, dehydration, anemia, electrolyte abnormalities. Considered PE however patient is bradycardic with a pulse ox of 98% on room air and denies chest pain. CBC will be obtained to assess white blood cell count, hemoglobin, platelets. BMP to assess renal function, electrolytes, glucose. High-sensitivity troponin and EKG to assess for ischemia/dysrhythmia. Chest x-ray to rule out pneumonia. IV was established and patient was given a liter normal saline. CBC shows normal white blood cell count 6.5. Hemoglobin 11.9. Platelets normal at 236. Renal function and electrolytes within normal limits. Magnesium normal at 2.3. Troponin 5. EKG interpreted by myself shows a sinus rhythm at 61 bpm without sign of ischemic change or dysrhythmia. Chest x-ray on my interpretation shows no acute cardiopulmonary process. Radiologist interprets this and agrees. Discussed with patient that her workup is normal. She is holding her atenolol currently because her PCP asked her to hold this due to bradycardia. She is going to reach out to her doctor tomorrow to see what medications she wants to give her or if she wants to change her meds. Patient also has COVID-19 but is on day 6 and her symptoms are minimal. Will discharge her to follow-up with PCP. Impression: 1. Sinus bradycardia 2. Lightheadedness 3. COVID-19 Lab Data Attestation: I reviewed the patient's lab results. Labs: Laboratory Results - last 24 hr 04/05/24 15:35 WBC 6.5 RBC 3.99 L Hgb 11.9 L Hct 36.4 L MCV 91.2 MCH 29.8 MCHC 32.7 RDW Std Deviation 45.2 H RDW Coeff of Thi 13.4 Plt Count 236 MPV 10.8 Immature Gran % (Auto) 0.500 Neut % (Auto) 62.3 Lymph % (Auto) 28.3 [place] % (Auto) 8.1 Eos % (Auto) 0.3 Baso % (Auto) 0.5 Absolute Neuts (auto) 4.1 Absolute Lymphs (auto) 1.85 Nucleated RBC % 0 Sodium 140 Potassium 3.5 Chloride 108 H Carbon Dioxide 27.0 Anion Gap 5 BUN 12 Creatinine 0.75 Estim Creat Clear Calc 68.35 Est GFR (MDRD) Af Amer 99 Est GFR (MDRD) Non-Af 82 BUN/Creatinine Ratio 16.0 Glucose 92 Calcium 9.2 Magnesium 2.3 Troponin I High Sens 5 Radiography Diagnostic Testing: Clinical Impression(s) from Imaging Studies Chest X-Ray 04/05/24 15:40 IMPRESSION: No radiographic evidence of acute cardiopulmonary disease. Electronically Signed: Watson Desai MD at 17:01 EDT Reading Location ID and State: [facility] / [place] Tel , Service support , Discharge Plan Triage Chief Complaint: General Illness ED Provider: Erasmo Galan Dx/Rx/DC Orders Instructions: Coronavirus Disease 2019 (COVID-19): Caring for Yourself or Others, ED Bradycardia, ED Dizziness, Uncertain Cause Prescriptions: No Action levothyroxine 25 mcg tablet 25 mcg PO DAILY atenolol 25 MG tablet 12.5 mg PO BID montelukast 10 MG tablet 10 mg PO DAILY metformin 500 MG tablet 500 mg PO BIDCM Primary Care Provider: Anny Don Referrals: Anny Don MD [Primary Care Provider] - Print Language: Slovak Disposition Disposition: Home, Self Care
[2024-04-05 15:39] VITALS: O2SAT 98
--- NOTE | 2024-04-05 15:40 | RAD_ITS ---
INDICATION: chest pain EXAMINATION/TECHNIQUE: X-RAY - portable upright AP chest x-ray COMPARISON: 11/07/2022 FINDINGS: LINES/DEVICES: None. LUNGS: No consolidation, edema or effusion. No pneumothorax. MEDIASTINUM AND CARDIOVASCULAR STRUCTURES: Cardiac silhouette not enlarged. Central airways and mediastinal contour are unremarkable. BONES AND SOFT TISSUES: Unremarkable. RAD/Chest 1 View (Portable) IMPRESSION: No radiographic evidence of acute cardiopulmonary disease. Electronically Signed: Watson Desai MD at 17:01 EDT ,
[2024-04-05 15:50] LABS: Absolute Lymphocyte Count 1.85 X10^3/uL (0.83-4.51); Absolute Neutrophil Count 4.1 X10^3/uL (2.0-7.7); Basophil# 0.03 X10^3/uL; Basophil% 0.5 % (0-1); Eosinophil# 0.02 X10^3/uL; Eosinophils% 0.3 % (0-5); Hematocrit 36.4 % (37-47); Hemoglobin 11.9 g/dL (12.0-15.0); Lymphocyte # 1.85 X10^3/ul (0.83-4.51); Lymphocyte % 28.3 % (19-41); Mean Corp Hgb Conc 32.7 g/dL (32-36); Mean Corpuscular Hgb 29.8 pg (27.0-32.0); Mean Corpuscular Volume 91.2 fL (81-99); Mean Platelet Vol. 10.8 fl (6.2-12.0); Monocyte# 0.53 X10^3/uL; Monocyte% 8.1 % (0-10); NRBC Flagged by Analyzer 0 % (0-5); Neutrophil # 4.07 X10^3/uL (2.7-7.7); Neutrophil % 62.3 % (47-70); Platelet Count 236 K/mm3 (150-450); RBC Distribution Width CV 13.4 % (11.6-14.6); RBC Distribution Width SD 45.2 fl (35.1-43.9); Red Blood Count 3.99 M/mm3 (4.2-5.4); White Blood Count 6.5 K/mm3 (4.4-11.0)
[2024-04-05 15:57] VITALS: BP 156/78; PULSE 58; RESP 12; O2SAT 95
[2024-04-05] MEDS: 0.9% Normal Saline (1000mL) 1,000 ML 999 ML IV (16:00)
[2024-04-05 16:08] LABS: Anion Gap 5 (5-15); BUN 12 mg/dL (7-18); Calcium,Total 9.2 mg/dL (8.5-10.1); Chloride 108 mmol/L (98-107); Creatinine, Serum 0.75 mg/dL (0.55-1.02); EST Glomerular Filtration Rate 82 mL/min (>60); Est Glom Filt Rate - Afr Amer 99 mL/min (>60); Estimated Creatinine Clearance 68.35 ml/min; Glucose 92 mg/dL (74-106); Magnesium 2.3 mg/dL (1.6-2.6); Potassium 3.5 mmol/L (3.5-5.1); Sodium Level 140 mmol/L (136-145); Troponin-I HS 5 pg/mL (3.0-54.0)
[2024-04-05 17:41] VITALS: BP 147/75; PULSE 68; RESP 18; TEMP 36.6; O2SAT 96
== END 2024-04-05 17:51 | disposition home or self-care (01) ==
PROVIDERS: Emergency Provider Student in an Organized Health Care Education/Training Program; PCP Internal Medicine; Visit Provider Student in an Organized Health Care Education/Training Program
DX: U07.1 COVID-19 (principal); E11.9 Type 2 diabetes mellitus without complications; E78.00 Pure hypercholesterolemia, unspecified; I25.10 Atherosclerotic heart disease of native coronary artery without angina pectoris; R00.1 Bradycardia, unspecified; R42 Dizziness and giddiness; F17.210 Nicotine dependence, cigarettes, uncomplicated
CPT/HCPCS: 71045; 80048; 83735; 84484; 85025; 93005; 96360; 96361; 99284; J7030; A4216